=== PATIENT | female | born 1940 | race Caucasian/White ===

== ENCOUNTER 2023-07-29 17:58 | Inpatient (IN) | payer OTHER, SELFPAY ==
[2023-07-29] VITALS (31 sets, daily range): BP systolic 97–119; BP diastolic 48–74; BMI 32.6
[2023-07-29 18:19] LABS: % Basophils 0.5 % (0-2); % Eosinophils 0.3 % (0-6); % Immature Granulocytes 0.7 % (0-0.5); % Lymphocytes 5.2 % (20.5-51.1); % Monocytes 2.9 % (1.7-9.3); % Neutrophils 90.4 % (42.2-75.2); Absolute Basophils 0.1 10^3/uL (0-0.2); Absolute Immature Granulocytes 0.1 10^3/uL (0-0.05); Absolute Lymphocytes 0.6 10^3/uL (1.2-3.4); Absolute Monocytes 0.4 10^3/uL (0.1-0.6); Absolute Neutrophils 11.1 10^3/uL (1.4-6.5); Hematocrit 28.7 % (37.0-47.0); Mean Corp Hgb Conc. 31.4 g/dL (33.0-37.0); Mean Corpuscular Hgb 25.1 pg (27.0-31.0); Mean Corpuscular Volume 80.2 fL (81.0-99.0); Mean Platelet Volume 11.2 fL (7.4-10.4); Nucleated Red Blood Cells % 0.6 %; Platelet Count 363 10^3/uL (130-400); Red Blood Cell Count 3.58 10^6/uL (4.20-5.40); White Blood Cell Count 12.3 10^3/uL (4.8-10.8)
[2023-07-29 18:20] LABS: Venous Blood Gas B.E. -5.9 mmol/L (-4 to +4); Venous Blood Gas O2 Sat % 73.3 %; Venous Blood Gas pCO2 55 mmHg (35-48); Venous Blood Gas pH 7.21 (7.32-7.43); Venous Blood Gas pO2 44 mmHg (30-50)
[2023-07-29 18:35] LABS: APTT 56.8 Sec (23.4-35.0); INR 1.93; PT 21.9 Sec (11.4-14.6)
[2023-07-29 18:39] LABS: ALT (SGPT) 89 U/L (0-35); AST (SGOT) 186 U/L (14-36); Albumin 3.5 g/dl (3.5-5.0); Alkaline Phosphatase 70 U/L (38-126); Blood Urea Nitrogen 55 mg/dl (7-17); Calcium 8.6 mg/dl (8.4-10.2); Carbon Dioxide 23 mmol/L (22-30); Chloride 103 mmol/L (98-107); Glucose 158 mg/dl (70-99); Potassium 3.8 mmol/L (3.5-5.1); Sodium 132 mmol/L (135-145); Total Bilirubin 0.7 mg/dl (0.2-1.3); eGFR 22.81
[2023-07-29] MEDS: DIPRIVAN 100 IV (19:15)
[2023-07-29] MEDS: DOBUTREX 500 MG 250 IV (19:15)
[2023-07-29] MEDS: LEVOPHED 250 IV ×2 (19:15→22:40)
--- NOTE | 2023-07-29 19:41 | CON.CAR ---
Consultation
Consultation Request
Date/Time Consultation Requested: 07/29/2023; 13:35
Date/Time Consultation Performed: 07/29/2023; 19:42
Requesting Provider: Rolando Maria D.O. ([facility])
Performing Provider: Rolando Gómez D.O.
Reason for Consultation: Hypoxic respiratory failure, sinus arrest requiring CPR/ACLS.
Medical History
-
Chief Complaint: Patient intubated/sedated.
History of Present Illness:
82 y/o female with atrial fibrillation on apixaban, NIDDM, severe CAD (not revascularized due to severity/complexity of disease), HTN, HLD, aortic stenosis and HFpEF admitted to [facility] with weakness and shortness in breath. The patient also reported
syncope while sitting at home, witnessed by her grandson. She was recently admitted and discharged from [facility] with acute on chronic HFpEF and PNA, treated with a course of antibiotics but reported continued shortness in breath since that discharge.
The patient is intubated and sedated. Then entire history is taken from the chart and EMS report.
At [facility], the patient recieved a dose of furosemide in the ER, leading to hypotension and cessation of diuretics. Workup revealed acute kidney injury, new anemia (Hbg 7.1) and coagulopathy. The patient was started on norepinephrine and given a fluid
bolus. She was transfused one unit of PRBC's and treated with empiric cefepime for potential PNA. She became bradycardic and suffered a sinus arrest requiring CPR/ACLS with ROSC. Echocardiogram revealed a new inferolateral wall motion abnormality
(appeared thinned, chronic per Dr. Maria). [facility] was contact for transfer for [facility] and consideration of a PPM. [facility] On their arrival, the patient was reportedly in worsening
respiratory distress. The patient was intubated prior to transfer. Intubation led to further hypotension and increase in norepinephrine. She was sedated using propofol. A kaye catheter was placed.
Upon arrival to the [facility], the patient was found to be hemodynamically stable with variable HR. A temporary pacemaker was placed. Given her hypoxic respiratory failure, the decision was made to place a [place] catheter. The
patient was found to have severely elevated filling pressures (PCWP = 30 mmHg) and a CI of 1.88 L/min/m2, consistent with cardiogenic shock. Given the reported new wall motion on TTE and cardiogenic shock, we proceeded to left heart catheterization
and coronary angiography to re-evaluate the patient's coronary anatomy and treat if clinically indicated. LHC confirmed severely elevated LVEDP (25 mmHg). Coronary angiography showed stable, severe CAD with densely calcified 90% lesions in the
ostia of the RCA and LCx, likely with significant disease in the LMCA, but with CHELO III flow throughout and unchanged from cardiac catheterization in 02/2023. Given the inherent complexity and extreme risk without obvious change in coronary
anatomy, the decision was made to manage the patient medically. She was started on dobutamine and transferred to the CVICU.
The patient was started on a bumetamide gtt. UA/lactate/ABG were obtained.
Past Medical History
Past Medical History: CAD, CHF, COPD, HTN, Hypercholesterolemia and NIDDM
Family History
Family History: Reviewed & Not Pertinent
Allergies / Home Medications
Allergy/AdvReac Type Severity Reaction Status Date / Time
codeine Allergy Unknown Verified 02/21/23 13:54
�Medication �Instructions �Recorded �Confirmed �Type
amlodipine 5 mg tablet 5 mg PO DAILY 02/21/23 02/21/23 History
apixaban 5 mg tablet (Eliquis) 5 mg PO BID 02/21/23 02/21/23 History
aspirin 81 mg chewable tablet 81 mg PO DAILY 02/21/23 02/21/23 History
atorvastatin 20 mg tablet 20 mg PO HS 02/21/23 02/21/23 History
carvedilol 25 mg tablet 25 mg PO BID 02/21/23 02/21/23 History
furosemide 20 mg tablet 20 mg PO Q OTHER DAY 02/21/23 02/21/23 History
losartan 50 mg tablet 50 mg PO DAILY #90 tabs 02/21/23 Rx
nitroglycerin 0.4 mg sublingual 0.4 mg sublingual [id number] PRN 02/21/23 Rx
tablet chest pain #25 tabs
sertraline 100 mg tablet 100 mg PO DAILY 02/21/23 02/21/23 History
Review of Systems
-
Unable to obtain full review of systems at this time due to: Patient Intubation
History Source: Ambulance Crew and Transfer Record
Physical Exam
Lab Results
07/29/23 18:03
07/29/23 18:03
Troponin I 21.000 ng/ml H* 07/29/23 17:52
Physical Exam
General: Well Developed and Well Nourished
HEENT: Normocephalic, Anicteric and Moist Mucous Membranes
Respiratory: Other (Coarse throughout.)
Cardiac: S1/S2, Regular Rhythm and Murmur
Breast: Deferred by me
GI: Soft, Non Tender, Non Distended and Normal Bowel Sounds
Rectal: Deferred by Provider
Genito-urinary: Turbid Urine
Musculoskeletal: No Clubbing, No Cyanosis and No Edema
Skin: Warm and Dry
Neuro: Other (Intubated/Sedated.)
Hematologic/Lymphatic: No Lymphadenopathy
Impression / Plan
-
82 y/o female with NIDDM, AF on apixaban, HTN, HLD, and severe CAD admitted with acute on chronic HFpEF and CIRO, found to be newly anemic and requiring transfusion, subsequently developing worsening hypoxic respiratory failure and sinus/bradycardic
arrest and ventilator dependent respiratory failure.
#Hypoxic respiratory failure
-Multifactorial, related to acute on chronic HFpEF, COPD, PNA.
-ABG shows respiratory acidosis. Adjust RR.
-Wean ventilator to extubate.
-Treatment of HFpEF as below.
-Empiric ABX for possible PNA.
-Serial ABGs.
#HFpEF
-Acute on chronic. This may be TACO.
-Cardiogenic shock (PCWP > 24, CI < 2.2).
-Norepinephrine/dobutamine for chemical support and inotropy.
-Bumetanide gtt at 1 mg/hour.
-She is not a candidate for MCS given her PAD.
#CAD
-Chronic, severe.
-Coronary angiography unchanged from 02/2023.
-Any intervention would be a highly complex and high risk procedure. If she fails to improve, we will revisit this option. She is not a candidate for CABG and declined this in the past.
-Trend troponin.
-Echocardiogram ordered.
#CIRO
-New diagnosis. Normal BUN/Cr at the time of cath in February.
-I suspect cardiorenal syndrome.
-Monitor with diuresis.
-UA for possible infection given turbid urine.
#Sinus/Bradycardic arrest
-Confirmed by Dr. Maria.
-Could be related to pulmonary/hypoxic respiratory failure vs. underlying conduction failure.
-TPM placed.
-Diurese and consider PPM if indicated.
#PAF
-Currently in NSR with PACs.
-No role for rate control at this time.
-CHADS2-Vasc = 7 (CHF, HTN, Age x2, DM, Vascular Disease, Female Gender).
-Anticoagulation on hold due to anemia.
#Anemia
-New diagnosis.
-Per notes, H/H has been drifting over several months.
-Check FOBT.
-B12/Folate/Thiamine, Fe studies, peripheral smear, reticulocyte count/index.
#NIDDM
#HTN
#HLD
Data Reviewed
-
EKG: Tracing Personally Visualized and interpreted, Report Reviewed by me, Discussed with Physician and Discussed with Nurse
Medical Tests (Nuc Med, Echo etc): Image Personally Visualized and interpreted, Report Reviewed by me, Discussed with Physician and Discussed with Nurse
Labs: Labs Reviewed by me, Discussed with Physician and Discussed with Nurse
Old Records: Reviewed
Critical Care Time (in minutes): 90
[2023-07-29] MEDS: BUMEX 50 IV (20:00)
--- NOTE | 2023-07-29 20:32 | ITS.CL.CATH ---
[facility] - Catheterization
Cardiac Catheterization
Procedure Report:
CARDIAC CATHETERIZATION REPORT
Date of Procedure: 07/29/2023
Referring: Rolando Maria D.O.
Indication: Hypoxic respiratory failure, sinus/bradycardic arrest
PROCEDURE:
1. Temporary pacemaker placement.
2. Right heart catheterization.
3. Left heart catheterization.
4. Coronary angiography.
ACCESS:
7 [place] left common femoral vein using a modified Seldinger technique with a micropuncture kit under ultrasound guidance.
8 [place] right internal jugular vein using a modified Seldinger technique with a micropuncture kit under ultrasound guidance.
6 [place] left common femoral artery using modified Seldinger technique with a micropuncture kit under ultrasound guidance.
CATHETERS:
1. 5 [place]ic temporary pacemaker wire.
2. 7.5 [place] catheter.
3. 5 [place]ic JR4.
4. 5 [place]ic JL 4.
HEMODYNAMIC DATA
Weight (kg): 75.8
AO (s/d/x mmHg): 91/48/62
LV (s/x mmHg): 103/25
PCWP (a/v/x mmHg): 32/35/27
PA (s/d/x mmHg): 54/27/36
RV (s/x mmHg): 54/20
RA (a/v/x mmHg): 21/21/20
SVC SvO2 (%): 68.2
PA SvO2 (%): 57.2
SaO2 (%): 96.0
Hbg (g/dL): 9.1
KAREN
CO (L/min): 4.41
CI (L/min/m2): 2.50
THERMODILUTION
CO (L/min): 3.33
CI (L/min/m2): 1.88
TPG (mmHg): 9
PVR ([place] Units): 2.70
SVR (dynes*seconds*cm^-5): 1018
AVO2 Diff (Volume %): 4.80
AV gradient (x, mmHg): 8.32
AV area (cm2): 1.20
LEFT VENTRICULOGRAPHY: Not performed.
CORONARY ANGIOGRAPHY
Dominance: Right.
Left Main: Normal size/bifurcating vessel. There is 30-40% distal tapering with dense calcification throughout the entire vessel.
LAD: Large size vessel giving rise to 1 significant diagonal. The entire vessel is moderately diseased with dense calcification. There is a 50-60% lesion in the mid vessel after the origin of the diagonal.
Ramus: Congenitally absent.
Circumflex: Large size, nondominant vessel giving rise to 4 obtuse marginals. OM1 is a small, vestigial vessel. OM 2 and OM 3 are more substantial vessel supplying the lateral wall. OM 4 is a small vessel. There is a densely calcified, 90%
lesion in the ostium of the left circumflex with CHELO-3 flow.
RCA: Large size, dominant vessel. There is a densely calcified, 90%, subtotal lesion in the ostium of the RCA with CHELO-3 flow. There are tandem, densely calcified 70% and 80% lesions in the crux of the vessel.
INTERVENTIONS
1. Initiation of dobutamine at 10 mcg/kg/min.
Closure Device: None. The right internal jugular sheath, right femoral venous sheath and right common femoral arterial sheath was sutured in place.
Radiation dose (mGy): 388.21
DAP (cm2.Gy): 30.7915
Fluoroscopy time (minutes): 3.7
Sedation time (minutes): 86
CONCLUSIONS:
1. Right dominant circulation with a densely calcified 90% subtotal lesion in the ostium of the RCA, tandem, densely calcified 70% 80% lesions in the crux of the RCA, a 30-40% distal tapering of a densely calcified left main coronary artery, a 50
to 60% lesion in the mid LAD and a densely calcified, 90% lesion in the ostium of the left circumflex. CHELO-3 flow is preserved in all vessels. Coronary anatomy is unchanged from prior cardiac catheterization of 02/21/2023.
2. Severely elevated filling pressures (LVEDP = 25 mmHg, PCWP = 27 mmHg at 75.8 kg).
3. Severely depressed cardiac function (cardiac index 1.88 L/min/m� on norepinephrine 10 mcg/kg/min) consistent with cardiogenic shock.
4. Bradycardic/sinus arrest, now status post successful placement of a temporary pacemaker.
RECOMMENDATIONS:
1. Expectant management after cardiac catheterization via left femoral and left internal jugular approach.
2. Given the high complexity and inherent high risk nature of the procedure with unchanged coronary anatomy, the decision was made to manage the patient medically rather than pursue PCI at this time.
3. Dobutamine started in the [facility] to augment systolic function.
4. Bumetanide drip 1 mg/h has been ordered.
5. We will start empiric antibiotics to cover potential infection.
6. Patient's outlook is relatively poor. We will discuss with appropriate family.
Copy to: Rolando Maria D.O., Donato Gallegos M.D., LEONARD Beck
Rolando Gómez DO, FACC, FACP
--- NOTE | 2023-07-29 21:25 | HPS.HSE ---
Family Physician
-
Family Physician: NO INTERVIEW UNKNOWN
Chief Complaint
-
Hypoxic respiratory failure
History of Present Illness
This is an 82 y.o female with h/o NIDDM, severe CAD with prior cath but no revascularization, HTN, HLD, , CHF w/ preserved EF, atrial fibrillation presenting with weaknessa nd shortness of breath as well as a syncope episode at home. She is
intubated and sedated. Unable to obtain history. History obtained from chart records.
She was recently admitted at [facility] with CHF exacerbation and pneumonia and treated with a course of antibiotics but has remained short of breath since discharge. She was seen at [facility] and started on a dose of furosemide leading to
hypotension. Had CIRO and anemia (Hgb 7.1) as well as elevated INR. She was started on pressors, and bolused with IV fluids. Transfused with 1 unit pRBCs and started on empiric cefepime for possible pneumonia. She had a PEA arrest requiring
CPR/ACLS with ROSC. Echo revealed new inferolateral wall motion abnormality. Patient was intubated for worsening respiratory status and then transferred to .
She was immediately taken to the laborer car barn where a temporary ppm was placed. A RHC was performed with a PCWP of 30 and CI of 1.88. She also had a LHC showing known atherosclerotic disease (calcified 90% lesions in ostia of RCA and LCx, signicant
LMCA disease but with CHELO III flow throughout and unchanged from prior cath) and LVEDP of 25. Decision made to treat medically.
Medical History
Past Medical History
Past Medical History: Reports CAD, HTN, Hypercholesterolemia, NIDDM and Renal Failure
Additional Past Medical History:
Aortic stenosis
Past Surgical History: Reports None
Social History
Unable to obtain full social history at this time due to: Acuity
Family History
Family History: Not pertinent
Allergies / Home Medications
Allergies reflects when Allergies were last updated in [facility].
Home Medications with original date entered in [facility]
Allergy/Medication List:
Allergies
Allergy/AdvReac Type Severity Reaction Status Date / Time
codeine Allergy Unknown Verified 02/21/23 13:54
Home Medications
amlodipine 5 mg tablet 5 mg PO DAILY 02/21/23
apixaban 5 mg tablet (Eliquis) 5 mg PO BID 02/21/23
aspirin 81 mg chewable tablet 81 mg PO DAILY 02/21/23
atorvastatin 20 mg tablet 20 mg PO HS 02/21/23
carvedilol 25 mg tablet 25 mg PO BID 02/21/23
furosemide 20 mg tablet 20 mg PO Q OTHER DAY 02/21/23
losartan 50 mg tablet 50 mg PO DAILY #90 tabs 02/21/23
nitroglycerin 0.4 mg sublingual tablet 0.4 mg sublingual [id number] PRN chest pain #25 tabs 02/21/23
sertraline 100 mg tablet 100 mg PO DAILY 02/21/23
Review of Systems
-
Unable to obtain full review of systems at this time due to: Acuity
Physical Exam
Vital Signs
Vital Signs
Pulse Resp BP Pulse Ox
91 18 97/57 98
07/29/23 21:05 07/29/23 21:05 07/29/23 21:05 07/29/23 19:15
Physical Exam
General: Intubated
HEENT: NormoCephalic, Anicteric and Atraumatic
Respiratory: Crackles
Cardiac: S1/S2 and Regular Rhythm
Breast: Deferred by me
GI: Soft, Non Tender and Non Distended
Rectal: Deferred by Provider
Genito-urinary: Turbid Urine and Miller
Musculoskeletal: No Clubbing, No Cyanosis and No Edema
Neuro: Sedated and Other (Intubated)
Hematologic/Lymphatic: No Lymphadenopathy
Laboratory Results
-
07/29/23 18:03
07/29/23 18:03
Laboratory Results
PT 21.9 Sec (11.4-14.6) H 07/29/23 18:02
INR 1.93 07/29/23 18:02
APTT 56.8 Sec (23.4-35.0) H 07/29/23 18:02
Lactic Acid 1.0 mmol/L (0.7-2.0) 07/29/23 18:03
Total Bilirubin 0.7 mg/dl (0.2-1.3) 07/29/23 18:03
AST 186 U/L (14-36) H 07/29/23 18:03
ALT 89 U/L (0-35) H 07/29/23 18:03
Alkaline Phosphatase 70 U/L (38-126) 07/29/23 18:03
Troponin I 21.000 ng/ml H* 07/29/23 17:52
Data Reviewed
-
Diagnostic Radiology: Image Personally Visualized and interpreted and Report Reviewed by me
Medical Tests (Nuc Med, Echo, EKG etc): Image Personally Visualized and interpreted and Report Reviewed by me
Lab Data: Labs Reviewed by me
Old Records: Reviewed
Impression/Plan
-
IMPRESSION:
82 y.o female with h/o severe CAD w/o stenting, NIDDM, COPD, HTN, CHF w/ preserved EF who presents with cardiogenic shock, sinus arrest s/p ROSC and intubated for further respiratory demise in setting of CIRO with diuretics. Sent to cath s/p
LHC/RHC, placement of temporary ppm for variable sinus pauses, swan remains. Art line/cordis
PLAN:
1. Cardiogenic shock - LVEDP 25, PCWP 30, multi-vessel of coronaries with 90% lesion not intervened due to unchanged status compared to prior. Intubated and sedated. Medical managament.
- levophed titrated for MAP > 60
- dobutamine titrated for CI > 2
- bumetanide gtt 4, output ~ 100ml/hr , titrate for i/o net negative
- holding norvasc carvedilol and losartan
- cardiology aware and following
2. Respiratory failure - Hypercarbic and hypoxic respiratory failure 2/2 heart failure
- Vent management per ICU. AC 16 400 100 5. Weaning FIO2. Adjust rate based on pH and pCO2
- empiric antibiotics for presumed pna (cefepime)
- nebs RTC
- sedation on propofol
- sedation & extubation trials when fio2 weaned down and hemodynamically stable
3. Elevated Trop - Cardiogenic shock, known ischemic cardiomyopathy, no new lesions.
- no anticoagulation at this time, trend troponin
- continue statin aspirin
4. CIRO - 2/2 cardiogenic shock
- pressors and inotropes as above
- holding losartan
- electrolyes acceptable and non-oliguric,
-
5. Anemia - Normocytic anemia. No obvious bleeding. No priors for comparison. S/P transfusion at outside hospital
- type and screen in am, transfuse for goal hgb > 7
- anemia w/u for ROCHELLE, B12, folate and hemolysis on going
6. AFIB - currently rate controlled and sinus
- holding carvedilol
- holding eliquis pending InR < 1.5, consider
7. DM II - per chart NIDDM but no meds on chart c/w with this
- sliding scale insulin q 6 hours for now
- check a1c in am
DVT PPX - SCDs
Full Code
--- NOTE | 2023-07-29 21:30 | PTCARENOTE ---
Patient received from agricultural labor camp manager via bed. Patient intubated/ventilator. Briefly opens eyes to verbal and tactile stimulation. Pupils size 3 with sluggish reaction. Pupils equal in size and reaction. Movement of extremities noted. Patient
continues on Propofol gtt for sedation. No s/s of respiratory distress. No s/s of pain or discomfort. 7.0 ETT 22cm Right lip. Ventilator settings: AC 14 TV 450 PEEP 5 FiO2 100%. SaO2 96%. Rate increased to 16. SaO2 97%. Minimal clear to
whitish secretions. Mouth care provided. Portable CXR completed. Sinus Rhythm with occasional PAC's. Right femoral transvenous pacemaker - VVI Rate 60, Output 20, Sensitivity 0.8. Patient continues on Levophed gtt and Dobutamine gtt. Right
femoral T.L.C. intact. Bumex gtt added. Normoactive bowel sounds. No BM. No vomiting. NPO. Miller catheter - Intact and patent - Outputs as documented. Right [place] and [place] Soila catheter setup. Left femoral arterial line intact.
A-Line, PAP, CVP to Pressure bag/Saline flush. PAP 50/30 (39). CVP 18. C.O. 4.89 C.I. 2.83 SVR 818. Positive, palpable pulses. EKG completed. Dr. Gómez at bedside. Adeel at bedside. Assessment as documented.
[2023-07-29 22:13] LABS: Reticulocyte Count 3.6 % (0.4-2.8)
[2023-07-29 22:26] LABS: Absolute Neutrophils -Man Diff 11.6 10^3/uL (1.4-6.5); Anisocytosis 2+; Atypical Lymphocytes 2 %; Band Neutrophils 7 % (0-3); Hypochromasia 1+; Lymphocytes 3 % (20-51); Microcytosis 2+; Platelets Checked Yes; Segmented Neutrophils 88 % (42-75)
[2023-07-29 22:27] LABS: Acanthocytes 2+; Poikilocytosis 2+; Total Cells Counted 100
[2023-07-29 22:32] LABS: Normal RBC Morphology No
[2023-07-29] MEDS: STERILE WATER FOR INJECTION 10 ML IV (22:48)
[2023-07-29] MEDS: MAXIPIME 1000 MG IV (22:48)
[2023-07-29 23:15] LABS: Glucose - Point of Care 223 mg/dl (70-99)
[2023-07-29 23:16] LABS: B.E. -5.4 mmol/L; HCO3 20.7 mmol/L (21-28); Ionized Calcium 1.21 mMOL/L (1.15-1.33); O2 Saturation % 94.4 % (94-98); PCO2 42 mmHg (32-35); PO2 67 mmHg (83-108); Potassium 3.4 mMOL/L (3.5-5.1)
[2023-07-29 23:17] LABS: Urine Albumin Trace (Neg - Trace); Urine Bilirubin Negative (Negative); Urine Character Slightly Cloudy (Clear); Urine Color Yellow; Urine Glucose Negative (Negative); Urine Ketone Negative (Negative); Urine Leukocyte Trace (Negative); Urine Nitrite Negative (Negative); Urine Occult Blood 4+ (Negative); Urine Specific Gravity 1.015 (<1.030); Urine Urobilinogen Negative (Neg - 1+)
[2023-07-29 23:32] LABS: Iron 26 ug/dl (37-170); Lactic Acid 1.2 mmol/L (0.7-2.0); Triglycerides 124 mg/dl (10-149)
[2023-07-29 23:41] LABS: Percent Saturation 8 % (20-50); Total Iron Binding Capacity 302 ug/dl (265-497)
[2023-07-29] MEDS: SODIUM BICARBONATE 50 MEQ IV ×2 (23:49→23:54)
[2023-07-30] VITALS (31 sets, daily range): BP systolic 88–122; BP diastolic 47–68; BMI 34.2
[2023-07-30] MEDS: KCL 100 IV
[2023-07-30] MEDS: NOVOLOG FLEXPEN-LOW RESISTANCE 2 UNITS SC (00:15)
--- NOTE | 2023-07-30 00:30 | PTCARENOTE ---
Lab work, ABG and urine collected and sent. Ventilator changes - FiO2 initially 100% then decreased to 60% then increased to 80%. TV increased to 500. 2 AMP Sodium Bicarb administered per PA order. KCL 40 mEq/100ml IV 25 ml/hr ordered and
started. C.O. 4.42 C.I. 2.56. Then, C.O. 4.89 C.I. 2.83. Dobutamine titration to maintain C.I. .2.0. No further changes from previous assessment.
[2023-07-30 00:49] LABS: Folate > 20.0 ng/ml (2.76-20); Vitamin B12 949 pg/ml (239-931)
[2023-07-30 01:19] LABS: Urine Hyaline Cast >15 /LPF (0-2); Urine Mucus Few
[2023-07-30 01:23] LABS: Urine Amorphous Seen; Urine Bacteria Moderate (Negative); Urine Red Blood Cell >100 /HPF (0-2); Urine Yeast Moderate (Negative)
[2023-07-30] MEDS: DIPRIVAN 100 IV ×4 (02:23→23:32)
--- NOTE | 2023-07-30 04:30 | PTCARENOTE ---
C.O. 4.76 C.I. 2.75. Then, C.O. 4.42 C.I. 2.56. Patient given CHG bath and linens changed. Mouth care provided. AM labs sent. Assessment/Interventions as documented.
[2023-07-30] MEDS: BUMEX 50 IV ×2 (04:39→15:03)
[2023-07-30 04:41] LABS: B.E. -1.2 mmol/L; HCO3 23.5 mmol/L (21-28); Ionized Calcium 1.18 mMOL/L (1.15-1.33); O2 Saturation % 98.5 % (94-98); PCO2 38 mmHg (32-35); PO2 117 mmHg (83-108)
[2023-07-30 04:49] LABS: Hematocrit 24.4 % (37.0-47.0); Hemoglobin 7.9 g/dL (12.0-16.0); Mean Corp Hgb Conc. 32.4 g/dL (33.0-37.0); Mean Corpuscular Hgb 25.2 pg (27.0-31.0); Mean Corpuscular Volume 77.7 fL (81.0-99.0); Mean Platelet Volume 10.9 fL (7.4-10.4); Platelet Count 252 10^3/uL (130-400); Red Blood Cell Count 3.14 10^6/uL (4.20-5.40); Red Cell Dist. Width 17.7 % (11.5-14.5); White Blood Cell Count 15.8 10^3/uL (4.8-10.8)
[2023-07-30 05:00] LABS: INR 1.83
[2023-07-30 05:13] LABS: Blood Urea Nitrogen 54 mg/dl (7-17); Calcium 8.2 mg/dl (8.4-10.2); Carbon Dioxide 25 mmol/L (22-30); Chloride 104 mmol/L (98-107); Estimated Creatinine Clearance 22 ml/min; Glucose 183 mg/dl (70-99); Potassium 3.7 mmol/L (3.5-5.1); Sodium 133 mmol/L (135-145); eGFR 29.39
[2023-07-30] MEDS: CALCIUM CHLORIDE 10% SYRINGE 60 MG IV (05:50)
[2023-07-30] MEDS: LEVOPHED 250 IV (06:00)
[2023-07-30] MEDS: DOBUTREX 500 MG 250 IV (06:00)
--- NOTE | 2023-07-30 06:00 | PTCARENOTE ---
Patient opens eyes to verbal/tactile commands. Patient will follow simple verbal commands. Attempts to mouth words. Encouraged to rest. Levophed gtt at 4 mcq/min (15 ml/hr). Dobutamine gtt at 3 mcq/kg/min (6.8 ml/hr). C.O. 5.14 C.I. 2.97.
Calcium chloride 1,000mg/50ml. Assessment/Interventions as documented.
[2023-07-30 06:19] LABS: Glucose - Point of Care 194 mg/dl (70-99)
[2023-07-30] MEDS: NOVOLOG FLEXPEN-LOW RESISTANCE 1 UNITS SC ×2 (06:20→14:27)
--- NOTE | 2023-07-30 08:25 | PTCARENOTE ---
Dr. Gómez made aware of a fibb via tiger text with rates to the 110's to 120's. Patient does have a history of a fibb/PAF. New orders to place OGT for potassium replenishment/meds.
--- NOTE | 2023-07-30 08:26 | W.PN.CD ---
Today's Communication / Plan
-
Bladder US.
Continue to down titrate dobutamine.
Continue diuresis.
CXR.
Consider adding anti-fungal to ABX regimen.
Echocardiogram ordered and pending.
OG tube ordered.
Start PO FeSO4.
Replace Potassium.
Check Mg/PO4.
Impression / Plan
-
Impression/Plan: 82 y/o female with NIDDM, AF on apixaban, HTN, HLD, and severe CAD admitted with acute on chronic HFpEF and CIRO, found to be newly anemic and requiring transfusion, subsequently developing worsening hypoxic respiratory failure and
sinus/bradycardic arrest and ventilator dependent respiratory failure.
#Hypoxic respiratory failure
-Multifactorial, related to acute on chronic HFpEF, COPD, PNA.
-ABG has normalized. pH 7.4, pCO2 40, pO2 117.
-Repeat CXR this morning.
-Wean ventilator to extubate.
-Treatment of HFpEF as below.
-Remains on cefepime for possible PNA.
-Serial ABGs.
#HFpEF
-Acute on chronic. This may be TACO.
-Cardiogenic shock at cath (PCWP > 24, CI < 2.2).
-Norepinephrine/dobutamine for chemical support and inotropy. CI now consistently > 2.4.
-Bumetanide gtt at 1 mg/hour.
-She is not a candidate for MCS given her PAD.
-She is nearly 2L negative by I/O. CI/Renal function are improving.
-Dobutamine and norepinephrine are both down to 2 mcg/kg/min.
-Down titrate dobutamine as CI will allow.
-I suspect she has never been fully diuresed during previous hospitalizations.
-Maintain K > 4, Mg > 2, Ca > 8 and PO4 > 2.5.
#CAD
-Chronic, severe.
-Coronary angiography unchanged from 02/2023.
-Any intervention would be a highly complex and high risk procedure. If she fails to improve, we will revisit this option. She is not a candidate for CABG and declined this in the past.
-Troponin peaked on arrival (21) and falling. D/C trend. She likely peaked at [facility] (3000 on their scale).
-Echocardiogram ordered/pending.
#CIRO
-New diagnosis. Normal BUN/Cr at the time of cath in February.
-I suspect cardiorenal syndrome.
-Improving with diuresis.
-UA shows large blood/RBC's, moderate bacteria/yeast.
-UCx ordered.
-Renal/bladder US to assess for source of blood loss/potential nidus for infection. We will check bladder first as she is intubated and sedated.
-Presence of yeast - contaminate or are we not treating a fungal UTI? Repeat UA in light of improved urine output.
#Sinus/Bradycardic arrest/PAF
-Confirmed by Dr. Maria.
-Could be related to pulmonary/hypoxic respiratory failure vs. underlying conduction failure.
-TPM placed.
-Diurese and consider PPM if indicated. Could this have all been from respiratory failure rather than a true conduction issue?
#PAF
-Lapsed into AF with moderate RVR (110-120 this morning).
-No role for rate control at this time.
-CHADS2-Vasc = 7 (CHF, HTN, Age x2, DM, Vascular Disease, Female Gender).
-Anticoagulation on hold due to anemia.
#Anemia
-New diagnosis.
-Per notes, H/H has been drifting over several months.
-FOBT pending.
-B12/Folate normal.
-Peripheral smear does not show schistocytes. Reticulocyte count is high - this effectively r/o hemolytic anemia or marrow failure.
-Fe/Fe% are low with a normal TIBC and Ferritin. There is clearly a component of Fe deficiency and AOCD. Ferritin is > 100, but should be much higher as an acute phase reactant.
-Thiamine pending.
-PO FeSO4.
-Renal/bladder US given hematuria on UA to assess as source of blood loss.
-Transfuse for Hbg < 7/Hct < 21.
#NIDDM
#HTN
#HLD
Critical Care Time = 45 minutes.
Subjective/Interval History:
CI has been much improved on dobutamine, consistently > 2.4.
Weight is up 5.8 kg compared to February, difficult to tell differential from scales vs. true weight gain.
Opening eyes to stimuli.
BP stable on norepinephrine and dobutamine.
SAO2 91% on 40% FiO2/ventilated.
1975 mL out in kaye catheter on bumetanide gtt.
Hbg down to 7.9 (from 9.0). WBC up to 15 (from 12).
Blood gas has normalized (7.40/38/117).
Fe and Fe% are low. TIBC normal. Ferritin 108. B12/Folate are high. B1 pending.
Troponin trending down. Lactate normal.
UA shows 4+ blood/RBC's, moderate bacteria/yeast.
She went into AF this morning. Rates 110-120.
DATA:
CXR, 07/29/2023:
IMPRESSION:
1. SEVERE ACUTE ALVEOLAR and INTERSTITIAL CARDIOGENIC PULMONARY EDEMA.
2. Small right pleural effusion.
3. Mild cardiomegaly.
4. Cardiac pacemaker wire projecting over the right ventricle.
5. Pulmonary arterial catheter in place with the tip in the right lower lobe pulmonary artery.
6. Endotracheal tube in place.
Cardiac Catheterization/TPM placement, 07/29/2023:
CONCLUSIONS:
1. Right dominant circulation with a densely calcified 90% subtotal lesion in the ostium of the RCA, tandem, densely calcified 70% 80% lesions in the crux of the RCA, a 30-40% distal tapering of a densely calcified left main coronary artery, a 50
to 60% lesion in the mid LAD and a densely calcified, 90% lesion in the ostium of the left circumflex. CHELO-3 flow is preserved in all vessels. Coronary anatomy is unchanged from prior cardiac catheterization of 02/21/2023.
2. Severely elevated filling pressures (LVEDP = 25 mmHg, PCWP = 27 mmHg at 75.8 kg).
3. Severely depressed cardiac function (cardiac index 1.88 L/min/m� on norepinephrine 10 mcg/kg/min) consistent with cardiogenic shock.
4. Bradycardic/sinus arrest, now status post successful placement of a temporary pacemaker.
Physical Exam
Vital Signs/Labs
Vital Signs
Temp Pulse Resp BP Pulse Ox
37.4 C 87 18 115/61 91
07/30/23 08:09 07/30/23 08:09 07/30/23 08:09 07/30/23 08:09 07/30/23 08:09
07/28/23 07/29/23 07/30/23
11:59 11:59 11:59
Actual Weight 79.5 kg
07/30/23 04:34
07/30/23 04:34
PT 21.0 Sec (11.4-14.6) H 07/30/23 04:34
INR 1.83 07/30/23 04:34
APTT 56.8 Sec (23.4-35.0) H 07/29/23 18:02
Triglycerides 124 mg/dl (10-149) 07/29/23 23:04
LAB Results
07/29/23 07/29/23 07/30/23
17:52 23:04 04:34
Troponin I 21.000 H* 15.900 H* 12.700 H*
Physical Exam
Constitutional: No acute distress and Comfortable
EENT: Anicteric and Moist mucous membranes
Cardiovascular: Rhythm/rate is irregular, S1S2 is normal and Murmur/rub/gallop absent
Respiratory: Other (Coarse throughout.)
GI: Soft, Distention absent, Flat, Non tender and Normal bowel sounds
Neuro/Psych: Other (Intubated, sedated.)
Other: Cath Site (Right IJ, left femoral access sites are C/D/I.)
Data Reviewed
-
Date of Service: July 30, 2023
Medical Decision Making: Reviewed Test Results, Tests Ordered, Test Interpretation and Review of Case with other Provider
EKG: Tracing Personally Visualized and interpreted and Report Reviewed by me
Echo: Ordered by me
X-Ray/CT/US/MRI/NUC/PET: Image Personally Visualized and interpreted, Report Reviewed by me and Discussed with Nurse
Medical Tests (PFT, Pathology etc): Image Personally Visualized and interpreted, Report Reviewed by me, Discussed with Nurse and Discussed with Family
Labs: Labs Reviewed by me and Labs Ordered by me
Old Records: Reviewed
[2023-07-30 08:37] LABS: B.E. -0.3 mmol/L; HCO3 23.9 mmol/L (21-28); Ionized Calcium 1.26 mMOL/L (1.15-1.33); O2 Saturation % 95.5 % (94-98); PCO2 36 mmHg (32-35); PO2 68 mmHg (83-108); Potassium 2.9 mMOL/L (3.5-5.1); pH 7.43 (7.35-7.45)
[2023-07-30] MEDS: VERSED 1 MG IV (09:10)
--- NOTE | 2023-07-30 09:30 | PTCARENOTE ---
OGT placed and placement verified via gastric bubble and cxr ordered portable to verify proper placement. Titrating down dobutrex as per order. Dr. Gómez: aware of anemia and low K. Will replete via OGT
[2023-07-30 09:41] LABS: Magnesium 2.2 mg/dl (1.6-2.3)
[2023-07-30] MEDS: FERROUS SULFATE ORAL LIQUID 300 MG TUBE ×2 (09:51→20:32)
[2023-07-30] MEDS: STERILE WATER FOR INJECTION 10 ML IV ×2 (09:52→22:47)
[2023-07-30] MEDS: MAXIPIME 1000 MG IV ×2 (09:52→22:47)
[2023-07-30] MEDS: KCL ELIXIR 40 MEQ TUBE ×2 (10:22→18:04)
[2023-07-30 10:24] LABS: Glycohemoglobin (HgbA1c) 6.3 % (4.0-5.6)
--- NOTE | 2023-07-30 11:00 | CON.INTV ---
Consultation
Consultation Request
Date/Time Consultation Requested: 07/30/2023637
Date/Time Consultation Performed: 07/30/2023757
Requesting Provider: Dr. Shafer
Performing Provider: Dr. Santiago
Reason for Consultation: Respiratory failure now on ventilator
Medical History
-
Chief Complaint: SOB/Weakness and passed out
History of Present Illness:
82-year-old female with a past medical history of CAD, DM type II, atrial fibrillation on Eliquis, aortic stenosis and HFpEF who was admitted to outside hospital due to weakness and shortness of breath. Patient also syncopized while at home which
was witnessed by her grandson. Patient was reportedly recently admitted and discharged from [facility] with acute on chronic HFpEF with pneumonia, treated with antibiotics but had been continued to experience shortness of breath since discharge. The
patient went to outside hospital and given Lasix in the ER which caused hypotension. She developed CIRO with anemia and coagulopathy and required vasopressors with Levophed. 1 unit PRBCs was given as well as antibiotics for possible pneumonia.
Patient then developed bradycardia and cardiac arrest requiring CPR --> ROSC obtained. Echo showed inferolateral wall motion abnormalities and transfer to [facility] was arranged for consideration of PPM. When the transfer medical
personnel arrived to outside hospital, patient appeared to be in worsening respiratory distress and was intubated prior to transfer. Once patient arrived here she was brought immediately to the [facility]. There was a densely calcified 90% lesion in
the ostium of the left circumflex as well as a 90% subtotal lesion in the ostium of the RCA. Also densely calcified 70-80% lesions in the crux of the RCA. Apparently the coronary anatomy is unchanged from prior cardiac catheterization from
February 2023. There was however severely elevated filling pressures with LVEDP 25 mmHg and PCWP of 27 mmHg. Also cardiac index was low at 1.88 while on Levophed consistent with cardiogenic shock. Medical management was decided given the
unchanged coronary anatomy compared to 02/2023, and dobutamine was started in the [facility] as well as Bumex drip. Temporary pacemaker also placed. Labs showed leukocytosis to 12.3, anemia to 9, initially was hypercapnic with pH of 7.21, pCO2 55,
hyponatremic to 132, CIRO with creatinine 2.1, elevated troponin of 21 with trace leukocyte esterase on urinalysis with moderate urine bacteria. Initial glucose via POCT was 223. Urine culture and respiratory culture were collected. CXR showed
severe pulmonary edema with a retrocardiac opacity. Unable to rule out concomitant pneumonia. Antibiotics were continued as well as dobutamine, Levophed, Bumex and patient was transferred to the CVICU for further care. Critical care service now
consulted for additional management/recommendations.
When I saw the patient she was intubated on 16/500/50%/5, breathing at 16 breaths/min, with PIP: 31 cmH2O, and VTe of 540 mL. BP via left femoral A-line was 107/55, heart rate 108, PAP 40/24 and SpO2 98%. CO/CI: 4.15/2.4. She is on Levophed at
2mcg/min, Bumex at 1mg/hr and sedated with propofol at 30 mcg/kg/min.
PMHx: CAD, CHF, COPD, HTN, A-fib on Eliquis, hypercholesterolemia and NIDDM
PSHx: Unknown
Past Medical History
Past Medical History: Other (Above as per HPI)
Past Surgical History: Other (Above as per HPI)
Social History
Tobacco: Other (unable to obtain)
Alcohol: Other (unable to obtain)
Family History
Family History: Unable to Obtain
Allergies / Home Medications
Allergies
Allergy/AdvReac Type Severity Reaction Status Date / Time
codeine Allergy Unknown Verified 02/21/23 13:54
Home Medications
�Medication �Instructions �Recorded �Confirmed �Last Taken �Type
amlodipine 5 mg tablet 5 mg PO DAILY 02/21/23 02/21/23 02/21/23 08:00 History
apixaban 5 mg tablet (Eliquis) 5 mg PO BID 02/21/23 02/21/23 02/18/23 17:00 History
aspirin 81 mg chewable tablet 81 mg PO DAILY 02/21/23 02/21/23 02/21/23 08:00 History
atorvastatin 20 mg tablet 20 mg PO HS 02/21/23 02/21/23 02/20/23 21:00 History
carvedilol 25 mg tablet 25 mg PO BID 02/21/23 02/21/23 02/21/23 08:00 History
furosemide 20 mg tablet 20 mg PO Q OTHER DAY 02/21/23 02/21/23 02/19/23 History
losartan 50 mg tablet 50 mg PO DAILY #90 tabs 02/21/23 Unknown Rx
nitroglycerin 0.4 mg sublingual 0.4 mg sublingual [id number] PRN 02/21/23 Unknown Rx
tablet chest pain #25 tabs
sertraline 100 mg tablet 100 mg PO DAILY 02/21/23 02/21/23 02/21/23 08:00 History
Review of Systems
-
Unable to Obtain full review of systems at this time due to: Patient Intubation
Vitals / Labs / Diagnostic Testing
Vital Signs
Temp Pulse Resp BP Pulse Ox
100.5 F H 98 16 99/62 98
07/30/23 15:15 07/30/23 15:15 07/30/23 15:15 07/30/23 15:00 07/30/23 15:15
Lab Data
07/30/23 04:34
07/30/23 13:51
Laboratory Results
07/29/23 07/29/23 07/30/23
18:02 23:03 04:31
PT 21.9 H
INR 1.93
APTT 56.8 H
pH 7.30 L 7.40
pCO2 42 H 38 H
pO2 67 L 117 H
HCO3 20.7 L 23.5
O2 Delivery Level
07/30/23 07/30/23 07/30/23
04:34 08:23 13:51
PT 21.0 H
INR 1.83
APTT
pH 7.43 7.47 H
pCO2 36 H 35
pO2 68 L 116 H
HCO3 23.9 25.5
O2 Delivery Level
Microbiology
07/30/23 11:14 Endotracheal Gram Stain - Preliminary
Diagnostic Testing:
Physical Exam
-
HEENT: Normocephalic and Anicteric
Cardiovascular: Irregular Rhythm, Peripheral Edema (+1 lower extremity pitting edema) and Other (Tachycardic)
Respiratory: Wheeze (Negative), Non-Labored Respirations and Other (ETT in place; mechanical breath sounds heard bilaterally)
GI: Soft, Non Tender and Other (Abdominal obesity)
Neurology: Tremors (Negative) and Other (Sedated)
Skin: Warm and Dry
General: Comfortable and Chills (Negative)
Assessment
-
Assessment: 82-year-old female with a past medical history of CAD, DM type II, atrial fibrillation on Eliquis, aortic stenosis and HFpEF who was admitted to outside hospital due to weakness and shortness of breath. Patient also syncopized while at
home which was witnessed by her grandson. Patient was reportedly recently admitted and discharged from [facility] with acute on chronic HFpEF with pneumonia, treated with antibiotics but had been continued to experience shortness of breath since
discharge. The patient went to outside hospital and given Lasix in the ER which caused hypotension. She developed CIRO with anemia and coagulopathy and required vasopressors with Levophed. 1 unit PRBCs was given as well as antibiotics for possible
pneumonia. Patient then developed bradycardia and cardiac arrest requiring CPR --> ROSC obtained. Echo showed inferolateral wall motion abnormalities and transfer to [facility] was arranged for consideration of PPM. When the transfer
medical personnel arrived to outside hospital, patient appeared to be in worsening respiratory distress and was intubated prior to transfer. Once patient arrived here she was brought immediately to the [facility]. There was a densely calcified 90%
lesion in the ostium of the left circumflex as well as a 90% subtotal lesion in the ostium of the RCA. Also densely calcified 70-80% lesions in the crux of the RCA. Apparently the coronary anatomy is unchanged from prior cardiac catheterization
from February 2023. There was however severely elevated filling pressures with LVEDP 25 mmHg and PCWP of 27 mmHg. Also cardiac index was low at 1.88 while on Levophed consistent with cardiogenic shock. Medical management was decided given the
unchanged coronary anatomy compared to 02/2023, and dobutamine was started in the [facility] as well as Bumex drip. Temporary pacemaker also placed. Labs showed leukocytosis to 12.3, anemia to 9, initially was hypercapnic with pH of 7.21, pCO2 55,
hyponatremic to 132, CIRO with creatinine 2.1, elevated troponin of 21 with trace leukocyte esterase on urinalysis with moderate urine bacteria. Initial glucose via POCT was 223. Urine culture and respiratory culture were collected. CXR showed
severe pulmonary edema with a retrocardiac opacity. Unable to rule out concomitant pneumonia. Antibiotics were continued as well as dobutamine, Levophed, Bumex and patient was transferred to the CVICU for further care. Critical care service now
consulted for additional management/recommendations.
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
Impression:
#In-Hospital Cardiac Arrest with bradycardia just prior to arrest now s/p TVP --> suspect she arrested due to severe hypoxia from both acute pulmonary edema (?TACO vs acute HFpEF) + /- pneumonia
#Acute respiratory failure with hypoxia and hypercapnia on mechanical ventilation
#Pneumonia - she certainly aspirated during her cardiac arrest; it is unclear if she had a PNA prior to her recent hospitalization at [facility]
#Shock - cardiogenic and suspected septic as well
#Abnormal UA with suspected UTI
#Leukocytosis with left shift suspicious for sepsis given bilateral opacities on CXR concerning for suspected pneumonia
#Acute kidney injury
#Anemia
#A-fib on Eliquis
#DM type II
Plan:
- Continue mechanical ventilation with daily SAT/SBT if clinically appropriate
- Titrate FiO2 and PEEP to maintain SpO2 >90-94%
- Avoid fever in this postarrest period
- Check blood Cx, follow up sputum Cx, urine Cx, and check urine antigens for legionella + Strep PNA
- Follow up echo
- Continue bumex gtt and maintain net negative fluid balance as tolerated
- Continue broad spectrum Abx
- Continue vasopressors and wean as tolerated to maintain MAP>65
- Avoid resuming dobutamine given sepsis
- Heart rate control with goal <110bpm
- Replete electrolytes with K>4, Mg>2
- transfuse as needed to keep Hb>7, plt>20k
- Maintain euglycemia with goal BG 140-180
- Trend sCr and UOP
- Need to confirm meds; I do not see a reason why we cannot resume PO meds, but hold anti-HTN meds given her shock-state
- If patient not extubated by tomorrow and vasopressor requirements remain low, then start tube feeds
- prn nebulized bronchodilators
- stress ulcer ppx: Start PPI
- DVT ppx - start HSQ
Critical care statement: A total of 40 minutes of critical care time was provided for this patient today. This includes management of unstable vital signs, evaluation of the patient at bedside, reviewing the patient's pertinent medical records
including radiographs, microbiology, laboratory evaluations, and discussion with primary team, consultants, pharmacy, nutrition, physical therapy, case management, charge nurse, critical care nursing, and respiratory therapy.
Data:
CXR 07-30-2023:
1. SEVERE ACUTE BILATERAL ALVEOLAR CARDIOGENIC PULMONARY EDEMA which appears unchanged.
2. Mild cardiomegaly.
3. Endotracheal tube, nasogastric tube, pulmonary arterial catheter, and right ventricular cardiac pacing wire in place.
--- NOTE | 2023-07-30 12:00 | PTCARENOTE ---
Remains in controlled atrial fibb. No acute changes. Niece here at bedside and updated. Matthew Gillis (contact center director)here and updated: Dr. Gómez notified that family specifically matthew Gillis here: will contact via phone: matthew Gillis spoke
with Dr. Gómez via phone and updated about the still critical condition of his grandmother, even though she has made some improvement with titration down dobutamine and levophed. Dr. Marion also tiger texted to update on patient condion on
ventilator.
[2023-07-30 12:03] LABS: Urine Albumin Negative (Neg - Trace); Urine Bilirubin Negative (Negative); Urine Character Clear (Clear); Urine Color Yellow; Urine Glucose Negative (Negative); Urine Ketone Negative (Negative); Urine Leukocyte Negative (Negative); Urine Nitrite Negative (Negative); Urine Occult Blood 3+ (Negative); Urine Urobilinogen Negative (Neg - 1+)
[2023-07-30 12:20] LABS: Urine Bacteria Few (Negative); Urine White Cell 0-2 /HPF (0-5); Urine Yeast Moderate (Negative)
[2023-07-30 14:09] LABS: B.E. 1.8 mmol/L; HCO3 25.5 mmol/L (21-28); O2 Saturation % 98.9 % (94-98); PCO2 35 mmHg (32-35); PO2 116 mmHg (83-108); pH 7.47 (7.35-7.45)
[2023-07-30 14:22] LABS: Lactic Acid 0.9 mmol/L (0.7-2.0)
[2023-07-30 14:23] LABS: Blood Urea Nitrogen 51 mg/dl (7-17); Carbon Dioxide 25 mmol/L (22-30); Chloride 103 mmol/L (98-107); Estimated Creatinine Clearance 26 ml/min; Glucose 140 mg/dl (70-99); Potassium 3.3 mmol/L (3.5-5.1); Sodium 136 mmol/L (135-145); eGFR 34.15
[2023-07-30 14:37] LABS: Glucose - Point of Care 177 mg/dl (70-99)
--- NOTE | 2023-07-30 16:11 | W.PN.HOSP.TC ---
Today's Communication/Plan
-
IV Bumex drip. IV antibiotics. Mechanical ventilation
Assessment / Plan
Assessment / Plan
Physical exam:
General: Acutely ill. On the ventilator.
HEENT: Normocephalic, Atraumatic and Moist Mucous Membranes
Respiratory: Coarse crackles bilateral; Negative Wheezes or Rhonchi
Cardiac: Irregular rate and rhythm and S1/S2
GI: Soft, Nontender and Nondistended
Extremities: Bilateral edema
Neuro: Sedated on the vent
A/P:
Cardiorespiratory arrest:
Patient with sinus bradycardia cardiac arrest
Temporary pacer in place
Evaluation for permanent pacemaker if indicated
Discussed with family at bedside today on 07/29
Discussed with RN at bedside as well
Shock:
Cardiogenic versus septic or both
Continue pressors norepinephrine and dopamine drip
Acute hypoxic respiratory failure:
Remains on the mechanical ventilator
Continue diuresis
Continue antibiotic
Acute on chronic diastolic congestive heart failure:
On IV diuresis, on Bumex drip
Monitor electrolytes and renal function
Monitor ins and outs
Cardiology on board
Elevated troponin/concern for non-STEMI:
Rule out acute coronary syndrome but appears to be elevated troponin due to non-ischemic myocardial injury
Trend cardiac enzymes
Continue aspirin and statin
Cardiology on board
Acute kidney injury:
Likely cardiorenal component
Monitor renal function while diuresing
Paroxysmal atrial fibrillation:
Anticoagulation on hold
No rate control especially in the setting of bradycardia
Anemia:
Workup in progress
Monitor hemoglobin closely
Diabetes mellitus type 2:
Insulin sliding scale
Monitor blood sugar and adjust medications accordingly
Hypertension:
Hold antihypertensive for now due to shock
Hyperlipidemia:
Hold statins for now
DVT prophylaxis:
SCDs
CODE STATUS:
Full code
Total Critical Care Time 40 minutes. I was immediately available to the patient and staff. I personally examined, reviewed labs, diagnostic images/reports, interpretations, treatment plans, discussed patient care with other providers and family
or caregivers (if patient is unable to make decisions), entered orders as appropriate and documented the medical record.
Anticipated Discharge: > 48 hours
Subjective/Interval History
-
Date of Service: July 30, 2023
Patient seen and examined today.
Objective Data
-
Labs:
Laboratory Results
07/30/23 07/30/23 07/30/23
04:31 04:34 08:23
WBC 15.8 H
Hgb 7.9 L
Hct 24.4 L
Plt Count 252 D
PT 21.0 H
INR 1.83
HCO3 23.5 23.9
Sodium 133 L
Potassium 3.7
Chloride 104
Carbon Dioxide 25
BUN 54 H
Creatinine 1.7 H
Glucose 183 H
Calcium 8.2 L
07/30/23
13:51
WBC
Hgb
Hct
Plt Count
PT
INR
HCO3 25.5
Sodium 136
Potassium 3.3 L
Chloride 103
Carbon Dioxide 25
BUN 51 H
Creatinine 1.5 H
Glucose 140 H
Calcium 9.0
Vital Signs:
Vital Signs
Temp Pulse Resp BP Pulse Ox
100.5 F H 98 16 99/62 98
07/30/23 15:15 07/30/23 15:15 07/30/23 15:15 07/30/23 15:00 07/30/23 15:15
I&O
07/29/23 07/30/23 07/31/23
06:59 06:59 06:59
Intake Total 1142.5 / 1187.8 512.9 / 512.9
Output Total 1625 / 1800 1999
Balance -482.5 / -612.2 -1487.1 / -1487.1
Review of Systems
-
Unable to obtain full review of systems at this time due to: Patient Intubation
--- NOTE | 2023-07-30 17:00 | PTCARENOTE ---
Remains in a fibb. Dr. Marion here and updated. New orders received. Blood cultures urine cultures sent. Keep intubated and sedated overnight and attempt to wean vent in am Monday.
[2023-07-30] MEDS: NSS (PRESERVATIVE FREE) 10 ML IV (17:13)
[2023-07-30] MEDS: PROTONIX IV 40 MG IV (17:13)
[2023-07-30] MEDS: SUBLIMAZE 50 MCG IV (17:43)
[2023-07-30 18:04] LABS: Glucose - Point of Care 145 mg/dl (70-99)
[2023-07-30] MEDS: NOVOLOG FLEXPEN-LOW RESISTANCE SC (18:04)
--- NOTE | 2023-07-30 20:00 | PTCARENOTE ---
PT AAO to self sedated on vent. Afib on monitor vss, pt on vent O2 saturation 96%,GI wnl, Miller adequate output, all tushar and arterial access sights wnl. see worklist for detailed assessment
[2023-07-30] MEDS: TYLENOL 650 MG PO (23:25)
[2023-07-30] MEDS: HEPARIN 5000 UNITS SC (23:33)
[2023-07-31] VITALS (42 sets, daily range): BP systolic 78–110; BP diastolic 49–75; BMI 34.2
--- NOTE | 2023-07-31 | PTCARENOTE ---
no change from previous assessment
[2023-07-31] MEDS: LEVOPHED 250 IV ×2 (00:21→21:38)
[2023-07-31] MEDS: NOVOLOG FLEXPEN-LOW RESISTANCE 2 UNITS SC ×2 (01:56→23:53)
--- NOTE | 2023-07-31 03:54 | PTCARENOTE ---
no change from previous assessment
[2023-07-31 04:18] LABS: B.E. 1.8 mmol/L; HCO3 25.3 mmol/L (21-28); O2 Saturation % 97.2 % (94-98); PCO2 34 mmHg (32-35); PO2 79 mmHg (83-108); pH 7.48 (7.35-7.45)
[2023-07-31 04:35] LABS: Hemoglobin 8.2 g/dL (12.0-16.0); Mean Corp Hgb Conc. 32.8 g/dL (33.0-37.0); Mean Corpuscular Hgb 25.2 pg (27.0-31.0); Mean Corpuscular Volume 76.9 fL (81.0-99.0); Mean Platelet Volume 10.5 fL (7.4-10.4); Platelet Count 270 10^3/uL (130-400); Red Blood Cell Count 3.25 10^6/uL (4.20-5.40); White Blood Cell Count 15.4 10^3/uL (4.8-10.8)
[2023-07-31 05:06] LABS: ALT (SGPT) 61 U/L (0-35); AST (SGOT) 71 U/L (14-36); Alkaline Phosphatase 68 U/L (38-126); Blood Urea Nitrogen 49 mg/dl (7-17); Calcium 8.9 mg/dl (8.4-10.2); Carbon Dioxide 26 mmol/L (22-30); Chloride 103 mmol/L (98-107); Direct Bilirubin 0.7 mg/dl (0.0-0.4); Estimated Creatinine Clearance 28 ml/min; Glucose 148 mg/dl (70-99); Magnesium 1.9 mg/dl (1.6-2.3); Potassium 2.9 mmol/L (3.5-5.1); Sodium 139 mmol/L (135-145); Total Bilirubin 1.1 mg/dl (0.2-1.3); Total Protein 5.6 g/dl (6.3-8.2)
[2023-07-31 05:09] LABS: NT-proBNP 22000 pg/ml
[2023-07-31 05:16] LABS: Procalcitonin 4.19 ng/ml (0.0-0.25)
[2023-07-31] MEDS: BUMEX 50 IV (05:47)
[2023-07-31] MEDS: DIPRIVAN 100 IV ×3 (05:48→17:11)
--- NOTE | 2023-07-31 07:36 | W.PN.CD ---
Today's Communication / Plan
-
Continue down titration of inotropes/pressors.
D/C bumetanide gtt.
Start bumetanide 1 mg IV BID.
Agree with aaron vaca.
Transfer to ICU.
Impression / Plan
-
Impression/Plan: 82 y/o female with NIDDM, AF on apixaban, HTN, HLD, and severe CAD admitted with acute on chronic HFpEF and CIRO, found to be newly anemic and requiring transfusion, subsequently developing worsening hypoxic respiratory failure and
sinus/bradycardic arrest and ventilator dependent respiratory failure.
#Hypoxic respiratory failure/PNA
-Multifactorial, related to acute on chronic HFpEF, COPD, PNA.
-ABG has normalized. pH 7.4, pCO2 40, pO2 70.
-Repeat CXR this morning.
-Wean ventilator to extubate.
-Treatment of HFpEF as below.
-Serial ABGs.
-Remains on cefepime for likely PNA.
-Agree with aaron vaca.
#HFpEF
-Acute on chronic. Improving.
-Cardiogenic shock at cath (PCWP > 24, CI < 2.2).
-Norepinephrine/dobutamine for chemical support and inotropy. CI now consistently > 2.4.
-Bumetanide gtt at 1 mg/hour.
-She is not a candidate for MCS given her PAD.
-She is nearly 3L negative by I/O. CI/Renal function are improving.
-Down titrate inotropes/pressors as CI/MAP will allow.
-I suspect she has never been fully diuresed during previous hospitalizations.
-D/C bumetanide gtt. Start bumetanide 1 mg IV BID.
-Maintain K > 4, Mg > 2, Ca > 8 and PO4 > 2.5.
#CAD
-Chronic, severe.
-Coronary angiography unchanged from 02/2023.
-Any intervention would be a highly complex and high risk procedure. If she fails to improve, we will revisit this option. She is not a candidate for CABG and declined this in the past.
-Troponin peaked on arrival (21) and falling. D/C trend. She likely peaked at [facility] (3000 on their scale).
-Echocardiogram ordered/pending.
#CIRO
-New diagnosis. Normal BUN/Cr at the time of cath in February.
-I suspect cardiorenal syndrome.
-Improving with diuresis.
-UA shows large blood/RBC's, moderate bacteria/yeast. Repeat UA shows less evidence of infection, persistent 3+ hematuria.
-Renal/bladder US unremarkable. She will need a Renal US when extubated.
#Sinus/Bradycardic arrest/PAF
-Confirmed by Dr. Maria.
-Could be related to pulmonary/hypoxic respiratory failure vs. underlying conduction failure.
-TPM placed.
-Diurese and consider PPM if indicated. Could this have all been from respiratory failure rather than a true conduction issue?
#PAF
-Lapsed into AF with moderate RVR (110-120 this morning).
-No role for rate control at this time.
-CHADS2-Vasc = 7 (CHF, HTN, Age x2, DM, Vascular Disease, Female Gender).
-Anticoagulation on hold due to anemia.
#Anemia
-New diagnosis.
-Per notes, H/H has been drifting over several months.
-FOBT pending.
-B12/Folate normal.
-Peripheral smear does not show schistocytes. Reticulocyte count is high - this effectively r/o hemolytic anemia or marrow failure.
-Fe/Fe% are low with a normal TIBC and Ferritin. There is clearly a component of Fe deficiency and AOCD. Ferritin is > 100, but should be much higher as an acute phase reactant.
-Thiamine pending.
-PO FeSO4.
-Repeat UA continues to show 3+ hematuria, less evidence of infection.
-Renal/bladder US unremarkable.
-Transfuse for Hbg < 7/Hct < 21.
#NIDDM
#HTN
#HLD
#Dispo
-Given her cardiac improvement and persistence of hypoxia and PNA, we will transfer to ICU. Discussed with Pulm/CC and Hospitalist.
Critical Care Time = 39 minutes.
Subjective/Interval History:
Patient remains intubated/sedated.
She is diuresing well and CI is stable.
Renal function improving.
Temp up to 38.1 overnight and she remains hypoxic.
CXR shows improvement (on my interpretation) but there is still alveolar infiltrates.
Pulm/CC consulted.
Pro-calcitonin elevated (>4). Patient walker-cultured.
Bladder US is unremarkable.
Repeat UA continues to show 3+ hematuria, less evidence of infection.
DATA:
CXR, 07/29/2023:
IMPRESSION:
1. SEVERE ACUTE ALVEOLAR and INTERSTITIAL CARDIOGENIC PULMONARY EDEMA.
2. Small right pleural effusion.
3. Mild cardiomegaly.
4. Cardiac pacemaker wire projecting over the right ventricle.
5. Pulmonary arterial catheter in place with the tip in the right lower lobe pulmonary artery.
6. Endotracheal tube in place.
Cardiac Catheterization/TPM placement, 07/29/2023:
CONCLUSIONS:
1. Right dominant circulation with a densely calcified 90% subtotal lesion in the ostium of the RCA, tandem, densely calcified 70% 80% lesions in the crux of the RCA, a 30-40% distal tapering of a densely calcified left main coronary artery, a 50
to 60% lesion in the mid LAD and a densely calcified, 90% lesion in the ostium of the left circumflex. CHELO-3 flow is preserved in all vessels. Coronary anatomy is unchanged from prior cardiac catheterization of 02/21/2023.
2. Severely elevated filling pressures (LVEDP = 25 mmHg, PCWP = 27 mmHg at 75.8 kg).
3. Severely depressed cardiac function (cardiac index 1.88 L/min/m� on norepinephrine 10 mcg/kg/min) consistent with cardiogenic shock.
4. Bradycardic/sinus arrest, now status post successful placement of a temporary pacemaker.
Physical Exam
Vital Signs/Labs
Vital Signs
Temp Pulse Resp BP Pulse Ox
37.6 C 102 19 100/63 98
07/31/23 07:00 07/31/23 07:18 07/31/23 07:18 07/31/23 07:00 07/31/23 07:18
07/29/23 07/30/23 07/31/23
11:59 11:59 11:59
Actual Weight 79.5 kg
07/31/23 04:11
07/31/23 04:11
PT 21.0 Sec (11.4-14.6) H 07/30/23 04:34
INR 1.83 07/30/23 04:34
APTT 56.8 Sec (23.4-35.0) H 07/29/23 18:02
Magnesium 1.9 mg/dl (1.6-2.3) 07/31/23 04:11
Triglycerides 124 mg/dl (10-149) 07/29/23 23:04
07/31/23
04:11
Kzf-J-Myfddzlbgoa Pept 35056
LAB Results
07/29/23 07/29/23 07/30/23
17:52 23:04 04:34
Troponin I 21.000 H* 15.900 H* 12.700 H*
07/30/23 07/30/23
13:00 13:51
Troponin I Cancelled 11.700 H*
Physical Exam
Constitutional: No acute distress and Comfortable
EENT: Anicteric and Moist mucous membranes
Cardiovascular: Rhythm/rate is irregular, Pedal edema present, S1S2 is normal and Murmur/rub/gallop absent
Respiratory: Lungs clear to auscul., Wheeze Absent, Crackles Absent, Rhonchi Absent and Labored respirations
GI: Soft, Distention absent, Flat, Non tender and Normal bowel sounds
Neuro/Psych: Other (Intubated/sedated.)
Data Reviewed
-
Date of Service: July 31, 2023
Medical Decision Making: Reviewed Test Results, Independent Historian Assessment and Test Interpretation
EKG: Tracing Personally Visualized and interpreted and Report Reviewed by me
Echo: Ordered by me
X-Ray/CT/US/MRI/NUC/PET: Image Personally Visualized and interpreted, Report Reviewed by me and Discussed with Nurse
Medical Tests (PFT, Pathology etc): Image Personally Visualized and interpreted, Report Reviewed by me and Discussed with Nurse
Labs: Labs Reviewed by me
Old Records: Reviewed
--- NOTE | 2023-07-31 07:42 | PTCARENOTE ---
Assumed care of patient at 0700. Pt is intubated and sedated. Bilateral soft wrist restraints in place. Pt remains Afib with HR 102. BP 110/56 MAP 75. PA pressure 36/20, CVP 8, CO 3.89, CI 2.25, SVR 1377. Left femoral transvenous V wire in place set
to rate 60 output 20. Pulses palpable. +2 LE edema present. #[address] at 22cm on left lip. Vent set to AC 40% FiO2, rate 16, TV 500, PEEP 5. Pulse oximetry 97%. OG tube in place. Bowel sounds hypoactive. Miller catheter in place draining
yellow urine. Left femoral [place] intact. Right femoral triple lumen intact. Right IJ [place]-Soila catheter in place at 50cm. Pt remains on Bumex 1mg/hr, Propofol 35mcg/kg/min, Levo 2mcg/min.
[2023-07-31] MEDS: KCL ELIXIR 40 MEQ TUBE ×3 (08:24→16:25)
[2023-07-31] MEDS: HEPARIN 5000 UNITS SC ×3 (08:24→23:53)
[2023-07-31] MEDS: FERROUS SULFATE ORAL LIQUID 300 MG TUBE ×2 (08:24→21:17)
[2023-07-31] MEDS: PROTONIX IV 40 MG IV (08:24)
[2023-07-31] MEDS: NSS (PRESERVATIVE FREE) 10 ML IV (08:24)
[2023-07-31 08:30] LABS: Glucose - Point of Care 177 mg/dl (70-99)
[2023-07-31] MEDS: NOVOLOG FLEXPEN-LOW RESISTANCE 1 UNITS SC ×2 (08:43→12:00)
[2023-07-31] MEDS: TYLENOL 650 MG PO (09:06)
--- NOTE | 2023-07-31 09:20 | W.PN.HOSP.TC ---
Today's Communication/Plan
-
Recheck potassium level
Follow urine output/weight/renal function
Continue Bumex
As needed dobutamine for heart rate control
Ventilator weaning per policy service coordinator
continue abx
Assessment / Plan
Assessment / Plan
TTE Left ventricle is mildly dilated.
Severely reduced left ventricular systolic function. Inferolateral, anterolateral and inferior wall akinesis. Left ventricular ejection fraction is 30-35%.
Severely dilated left atrium. Moderate mitral regurgitation. Mild aortic stenosis, mean gradient 12 mmHg. No prior study available for comparison.
CXR 07/30
1. Bilateral alveolar pulmonary edema with slight improvement compared to the chest radiograph from 07/30/2023.
2. Support tubes and lines, as detailed above.

1. In hospital Cardiorespiratory arrest with bradycardia
Vent dependent resp failure
Pneumonia
-Patient with sinus bradycardia cardiac arrest
-Patient was requiring temporary pacing for bradycardia.
-Cardio following and help appreciated.
-Patient was intubated during cardiac arrest. Vent weaning per policy service coordinator.
-Covered with cefepime/Diflucan. Respite culture growing Luisa only.
-Legionella/streptococcal negative. COVID pending.
2. Cardiogenic Shock
-Requiring vasopressors post cardiac arrest likely due to suppressed cardiac function
-Potential differential of ongoing sepsis also playing a role
-Not a candidate of MCS with peripheral vascular disease
-Being treated for underlying issues
-Continue pressors norepinephrine and dobutamine drip as needed
3, Acute on chronic diastolic congestive heart failure:
-On IV diuresis, on Bumex drip
-Weight slowly downtrending
-Monitor electrolytes and renal function
-Monitor ins and outs
-Cardiology on board
4. Elevated troponin with Type II ME
-Left heart catheterization showing known severe CAD. Not amenable to bypass.
-Any PCI option remains high risk procedure and cardiac will revisit if not improved medically
-Troponin of 21, trending down.
5. Acute kidney injury:
-Presumed component of cardiorenal syndrome
-UA showing minimal RBC 7-10, few bacteria. No proteinuria.
-renal function trending down, cr 1.4 today, max 2.1 at admit.
-eventual renal bladder US
6. Paroxysmal atrial fibrillation:
Anticoagulation on hold
No rate control especially in the setting of bradycardia
7.Presumed Iron def Anemia
-Microcytic anemia with ferritin of 108 (acute phase reactant) with Iron sat 8%
-check stool for occult blood
-High [place]-vasc score and will need to be back on AC eventually
8. Diabetes mellitus type 2:
-Insulin sliding scale
-Monitor blood sugar and adjust medications accordingly
9. Hypokalemia
-on Kcl liquid through tube
-recheck in afternoon
10. Essential Hypertension:
-Hold antihypertensive for now due to shock
11. Hyperlipidemia:
- Hold statins for now
12. Hyponatremia -resolved
DVT prophylaxis: SCDs
CODE STATUS: Full code
Total critical care time 38 mins . Total critical care time documented does not include time spent on separately billed procedures or the services of residents, students, nurses or physician assistants. I personally saw and examined the patient. I
have reviewed all diagnostic interpretations and treatment plans as written. I was present for the collazo portions of any procedures performed and the inclusive time noted in any critical care statement. Critical care time includes patient management
by me, time spent at the patients bedside, time to review lab and imaging results, discussing patient care, documentation in the medical record, and time spent with the family or caregiver.
Anticipated Discharge: > 48 hours
Subjective/Interval History
-
Date of Service: July 31, 2023
Remains intubated
Off of dobutamine
Small vasopressor/Levophed need
Off of transcutaneous pacing
[place]-Soila catheter/a line in place
Objective Data
-
Labs:
Laboratory Results
07/31/23
04:11
WBC 15.4 H
Hgb 8.2 L
Hct 25.0 L
Plt Count 270
HCO3 25.3
Sodium 139
Potassium 2.9 L
Chloride 103
Carbon Dioxide 26
BUN 49 H
Creatinine 1.4 H
Glucose 148 H
Calcium 8.9
Total Bilirubin 1.1
AST 71 H
ALT 61 H
Alkaline Phosphatase 68
Vital Signs:
Vital Signs
Temp Pulse Resp BP Pulse Ox
99.7 F 77 19 105/65 99
07/31/23 09:00 07/31/23 09:00 07/31/23 09:00 07/31/23 08:00 07/31/23 09:00
I&O
07/30/23 07/31/23 08/01/23
06:59 06:59 06:59
Intake Total 1142.5 / 1187.8 672.5 / 740.6 180.5 / 180.5
Output Total 1625 / 1800 4150 / 4475 700 / 700
Balance -482.5 / -612.2 -3477.5 / -3734.4 -519.5 / -519.5
Review of Systems
-
Unable to obtain full review of systems at this time due to: Acuity and Patient Intubation
Physical Exam
-
General: No Apparent Distress and Comfortable
HEENT: Other (Intubated on ventilator)
Respiratory: Clear to Auscultation
Cardiac: Regular Rhythm and S1/S2; Negative Murmur or Rub
GI: Soft, Nontender and Nondistended
Musculoskeletal: No Edema
Neuro: Sedated
--- NOTE | 2023-07-31 09:36 | CM ---
Reviewed chart. Mrs. Reinoso is in the operating room today. Prior to admission she resides alone in a one story home with one step to enter. Medical work-up in progress. The discharge plan is to retrun home with a home visit by the
Cardiothoracic Transitional Care Nurse when medically stable.
[2023-07-31] MEDS: MAXIPIME 1000 MG IV ×2 (10:08→21:17)
[2023-07-31] MEDS: STERILE WATER FOR INJECTION 10 ML IV ×2 (10:08→21:17)
--- NOTE | 2023-07-31 10:45 | CARDSERVLU ---
Echocardiogram with Lumason completed after protocol screening completed. Allergies verified.
Patent IV site: __R IJ cordud___
IV site flushed with 0.9% NaCl pre and post administration.
Diluted bolus method utilized to enhance visualization of ventricular kendrick.
Total volume given: __2.5__ mL
Patient tolerated all procedures well without complications.
[2023-07-31 11:08] LABS: B.E. 2.6 mmol/L; HCO3 25.7 mmol/L (21-28); O2 Saturation % 97.5 % (94-98); PCO2 33 mmHg (32-35); PO2 80 mmHg (83-108); Potassium 4.8 mMOL/L (3.5-5.1)
[2023-07-31] MEDS: KCL ELIXIR TUBE ×2 (11:18→15:46)
--- NOTE | 2023-07-31 11:45 | PTCARENOTE ---
Bumex gtt off per Dr. Gómez. K replaced. Weaning propofol gtt. Pt placed on CPAP, pt tachypneic with CPAP. ABG collected and reviewed, placed back on AC fiO2 40%. Pt remains on Levo gtt now at 4mcg/min. BP 112/63 MAP 82. PA 53/28, CVP 16. CO 3.48,
CI 2.01, SVR 1562.
[2023-07-31 12:03] LABS: Glucose - Point of Care 187 mg/dl (70-99)
--- NOTE | 2023-07-31 12:10 | PTCARENOTE ---
Received pt from CVICU via bed being bagged by RPT. She is SR 90'2 on the monitor. She opened her eyes briefly to verbal and tactile stimuli, squeezed my hand and moved her legs when asked. Bilateral soft wrist restraints intact. +2 L/E edema,
knee-hi SCD's intact. Weak pedal pulses, good radial pulses. Right IJ SGC via cordis secured @55cm, transduced, calibrated and monitored. Right IJ cordis with 0.9nss KVO. Left femoral venous cordis capped with TVP connected but off. Dressing CDI.
Right femoral TL CVC with Propofol @ 30mcg/kg/min and Norepinephrine @ 4mcg/min via distal port. Other two ports flushed and patent. Right femoral Arterial line transduced, calibrated and monitored with all ports patent and secured. #7 ETT secured
23 cm left lip. Tolerating AC 16/500/. 40/+5. Pulse ox 97%. Breath sounds coarse throughout. Suction for moderate thick chamorro secretions. Oral thrush present. Left breast fold with yeast rash. Recent UA with yeast. Dr. Penaloza notified. Dr. Gómez
TT'd regarding transfer orders, Removal of SGC being she has been off Dobutamine for more than 24 hours, & Bumex drip was turned off by prior RN @ 6760, and to clarify if we are continuing with the two potassium orders given recent K+4.8. Hypoactive
BSX4. Miller catheter secured, draining clear yellow urine. Aspiration precautions maintained. Safe environment maintained.
--- NOTE | 2023-07-31 12:25 | CM ---
Reviewed chart. Telephone call to Terry castro , ([phone]) to review discharge plans. He states prior to admission he resides with her in a two story home with five steps to enter. He states she has a first floor set-up once
inside the home. He states prior to admission she was independent with ambulation and adls most of the time. Sometimes she would use a single point cane or rolling walker if needed. She has a single point cane and rolling walker at home. She has
had [facility]NA Services in the past. She also went to rehab after her hip surgery. Will need to see her current functional level to see if she will have any skilled care needs. Medical work-up in progress. The discharge plan is to return home with VNA
Services versus SNF/Rehab. if indicated when medically stable.
--- NOTE | 2023-07-31 12:30 | PTCARENOTE ---
Pt's grand-son Carlin entered the room. He was updated on the plan of care, and provided pamphlet regarding vising hours and the unit phone number for updates. He mentioned that she was a DNR @ [facility] prior to transport here and allowed
intubation but he expressed does not want CPR or defibrillation for his grand-mother. Dr. Penaloza notified upon entering the room.
--- NOTE | 2023-07-31 12:39 | W.PN.INTV ---
Today's Communication / Plan
Recommendations
Continue mechanical ventilation will adjust as necessary
Not ready for spontaneous breathing trial
Wean down vasopressors
Transition to IV intermittent diuretics
Continue antibiotic
Follow cultures
Check MRSA screen
Check COVID testing
Follow renal function electrolytes from
Potassium has been repleted
Recheck later electrolytes.
DNR status
Assessment
-
Assessment: 82-year-old female with a past medical history of CAD, DM type II, atrial fibrillation on Eliquis, aortic stenosis and HFpEF who was admitted to outside hospital due to weakness and shortness of breath. Patient also syncopized while at
home which was witnessed by her grandson. Patient was reportedly recently admitted and discharged from [facility] with acute on chronic HFpEF with pneumonia, treated with antibiotics but had been continued to experience shortness of breath since
discharge. The patient went to outside hospital and given Lasix in the ER which caused hypotension. She developed CIRO with anemia and coagulopathy and required vasopressors with Levophed. 1 unit PRBCs was given as well as antibiotics for possible
pneumonia. Patient then developed bradycardia and cardiac arrest requiring CPR --> ROSC obtained. Echo showed inferolateral wall motion abnormalities and transfer to [facility] was arranged for consideration of PPM. When the transfer
medical personnel arrived to outside hospital, patient appeared to be in worsening respiratory distress and was intubated prior to transfer. Once patient arrived here she was brought immediately to the Customer Services Coordinator. There was a densely calcified 90%
lesion in the ostium of the left circumflex as well as a 90% subtotal lesion in the ostium of the RCA. Also densely calcified 70-80% lesions in the crux of the RCA. Apparently the coronary anatomy is unchanged from prior cardiac catheterization
from February 2023. There was however severely elevated filling pressures with LVEDP 25 mmHg and PCWP of 27 mmHg. Also cardiac index was low at 1.88 while on Levophed consistent with cardiogenic shock. Medical management was decided given the
unchanged coronary anatomy compared to 02/2023, and dobutamine was started in the Customer Services Coordinator as well as Bumex drip. Temporary pacemaker also placed. Labs showed leukocytosis to 12.3, anemia to 9, initially was hypercapnic with pH of 7.21, pCO2 55,
hyponatremic to 132, CIRO with creatinine 2.1, elevated troponin of 21 with trace leukocyte esterase on urinalysis with moderate urine bacteria. Initial glucose via POCT was 223. Urine culture and respiratory culture were collected. CXR showed
severe pulmonary edema with a retrocardiac opacity. Unable to rule out concomitant pneumonia. Antibiotics were continued as well as dobutamine, Levophed, Bumex and patient was transferred to the CVICU for further care. Critical care service now
consulted for additional management/recommendations.
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
Impression:
#In-Hospital Cardiac Arrest with bradycardia just prior to arrest now s/p TVP --> suspect she arrested due to severe hypoxia from both acute pulmonary edema (?TACO vs acute HFpEF) + /- pneumonia
#Acute respiratory failure with hypoxia and hypercapnia on mechanical ventilation
#Pneumonia - she certainly aspirated during her cardiac arrest; it is unclear if she had a PNA prior to her recent hospitalization at [facility]
#Shock - cardiogenic and suspected septic as well
#Abnormal UA with suspected UTI
#Leukocytosis with left shift suspicious for sepsis given bilateral opacities on CXR concerning for suspected pneumonia
#Acute kidney injury
#Anemia
#A-fib on Eliquis
#DM type II
Plan:
Continue mechanical ventilation with daily SAT/SBT if clinically appropriate
- Titrate FiO2 and PEEP to maintain SpO2 >90-94%
Not ready for spontaneous breathing trial today 07/31/2023.
Chest x-ray 07/31/2023: Reviewed, showed bilateral infiltrates suggestive of pulmonary edema. Improved compared to 07/30/2023.
Sedation with propofol and fentanyl.
Target RASS (-1 to 0)
ABG 7.48/34/79
-
Fever curve improved/persistent leukocytosis noted
Chest x-ray with multifocal infiltrates. Cannot rule out pneumonia.
-Legionella, Streptococcus antibodies negative.
Respiratory culture with Luisa albicans
Urine culture with Luisa albicans
Blood culture pending
Check MRSA screening
Continue broad-spectrum antibiotics for now-cefepime
Will Check for Covid as well.
Suspect respiratory Luisa is contaminant
-
Pulmonary edema component:
Prior history of severe coronary artery disease. Not a candidate for any intervention. Case discussed with cardiology.
Cardiogenic shock component: Pulmonary capillary wedge pressure greater than 24, cardiac index less than 2.2.
Cardiac index improved
So far fluid balance negative. Clinically improved from the cardiac perspective.
Bumex drip discontinued.
On IV Bumex twice a day per cardiology
Echocardiogram noted
-
Shock: Septic/possibly cardiogenic component as well.
- Continue vasopressors and wean as tolerated to maintain MAP>65
Echocardiogram 07/31/2023: Left ventricle ejection fraction 30-35%. Inferolateral, anterolateral and inferior wall akinesis. Severely reduced left ventricular systolic function. Severely dilated left atrium. Moderate MR. Mild aortic stenosis.
- Heart rate control with goal <110bpm
- Replete electrolytes with K>4, Mg>2
-
Acute kidney injury: Possibly cardiorenal.
Miller in place, follow urinary output
Ischemic injury also possible with hypotension and sepsis. Continue hemodynamic support
Creatinine improving
-
Anemia: No evidence for acute bleed
- transfuse as needed to keep Hb>7, plt>20k
- Maintain euglycemia with goal BG 140-180
-Will start tube feedings per
- prn nebulized bronchodilators
- stress ulcer ppx: PPI
- DVT ppx - HSQ
Dr. Penaloza updated grandson at the bedside. Long discussion regarding critical illness. DNR status has been instituted
Critical care statement: A total of 42 minutes of critical care time was provided for this patient today. This includes management of unstable vital signs, evaluation of the patient at bedside, reviewing the patient's pertinent medical records
including radiographs, microbiology, laboratory evaluations, and discussion with primary team, consultants, pharmacy, nutrition, physical therapy, case management, charge nurse, critical care nursing, and respiratory therapy.

Data:
CXR 07-30-2023:
1. SEVERE ACUTE BILATERAL ALVEOLAR CARDIOGENIC PULMONARY EDEMA which appears unchanged.
2. Mild cardiomegaly.
3. Endotracheal tube, nasogastric tube, pulmonary arterial catheter, and right ventricular cardiac pacing wire in place.
Subjective Dataa
Subjective Data
Date of Service:
Date of Service: July 31, 2023
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
Subjective:
Remain on mechanical ventilation overnight.
This morning did not tolerate spontaneous breathing trial.
Review of Systems
General: Unobtainable - Sedation
Objective Data
Data Reviewed
Vital Signs / I&O / Oxygen:
Vital Signs
Temp Pulse Resp BP Pulse Ox
99.2 F 94 30 102/65 95
07/31/23 12:00 07/31/23 12:17 07/31/23 12:17 07/31/23 12:17 07/31/23 12:27
Intake and Output
07/30/23 07/31/23 08/01/23
06:59 06:59 06:59
Intake Total 1142.5 / 1187.8 672.5 / 740.6 348.3 / 348.3
Output Total 1625 / 1800 4150 / 4475 885 / 885
Balance -482.5 / -612.2 -3477.5 / -3734.4 -536.7 / -536.7
SaO2 [A/C] 95
SaO2 97
Physical Exam
General: Respiratory Distress (n)
HEENT: Normocephalic and Other (ET tube in place)
Cardiovascular: S1-S2
Respiratory: Clear and Non-Labored Respirations
GI: Soft and Non Distended
Neurology: Other (Sedated, on mechanical ventilation.)
Labs/Micro/Reports
Lab Data
07/31/23 04:11
07/31/23 04:11
Laboratory Results
07/30/23 07/31/23 07/31/23
13:51 04:11 11:00
pH 7.47 H 7.48 H 7.50 H
pCO2 35 34 33
pO2 116 H 79 L 80 L
HCO3 25.5 25.3 25.7
O2 Delivery Level Not Reportable
Microbiology
07/30/23 11:14 Endotracheal Respiratory Culture - Preliminary
Luisa albicans
07/30/23 11:14 Endotracheal Gram Stain - Preliminary
07/29/23 23:03 Urine Urine Culture - Final
Luisa albicans
07/30/23 17:20 Urine Legionella Urinary Antigen - Final
Negative for Legionella pneumophila Serogroup 1 antigen.
A negative result does not rule out the possiblity of
Legionella infection due to other serogroups or species of
Legionella. Clinical correlation is recommended.
07/30/23 17:20 Urine Streptococcus pneumoniae Antigen (M - Final
Negative for Streptococcus pneumoniae antigen.
A negative result does not exclude infection with
Streptococcus pneumoniae. Clinical correlation is
recommended.
--- NOTE | 2023-07-31 14:15 | PTCARENOTE ---
Dr. Gómez at the bedside removed right IJ SGC, Right IJ Cordis remains. 0.9NSS now via left femoral cordis. TVP remains off. Will keep TVP in place in as per Dr. Gómez.
[2023-07-31] MEDS: SUBLIMAZE 100 IV (14:30)
[2023-07-31] MEDS: SUBLIMAZE 80 MCG IV (14:32)
[2023-07-31] MEDS: DIFLUCAN 200 MG TUBE (14:52)
[2023-07-31 14:57] LABS: COVID-19 Antigen Negative (Negative)
[2023-07-31 15:02] LABS: Blood Urea Nitrogen 49 mg/dl (7-17); Calcium 8.4 mg/dl (8.4-10.2); Carbon Dioxide 28 mmol/L (22-30); Chloride 105 mmol/L (98-107); Estimated Creatinine Clearance 28 ml/min; Glucose 141 mg/dl (70-99); Magnesium 1.8 mg/dl (1.6-2.3); Potassium 3.6 mmol/L (3.5-5.1); Sodium 138 mmol/L (135-145)
[2023-07-31] MEDS: MAGNESIUM SULFATE 50 IV (16:25)
[2023-07-31] MEDS: NOVOLOG FLEXPEN-LOW RESISTANCE SC (17:57)
[2023-07-31 18:07] LABS: Glucose - Point of Care 147 mg/dl (70-99)
--- NOTE | 2023-07-31 20:12 | PTCARENOTE ---
Assumed care of patient. Patient in bed, intubated, 7 ETT 23@ lip. vent settings checked. Patient able to open eyes and follow simple commands. Patient on monitor, vital signs stable. TVP still in place but off per cardiology orders. Patient on
levo, fentanyl, and prop through right femoral triple lumen. Pt also has RIJ cordis and left groin cordis with an a-line. A-line zeroed and flushed, matching cuff pressures. Pt has kaye in place with clear yellow output. Patient remains in BL wrist
restraints. See worklist for full assessment. Will continue to monitor.
[2023-08-01] VITALS (52 sets, daily range): BP systolic 78–108; BP diastolic 51–74; BMI 31.5
[2023-08-01 00:03] LABS: Glucose - Point of Care 217 mg/dl (70-99)
--- NOTE | 2023-08-01 00:35 | PTCARENOTE ---
Patient reassessed, ventilator settings confirmed. No changes, See worklist. Will continue to monitor. IV drips remain the same
[2023-08-01] MEDS: DIPRIVAN 100 IV ×4 (01:43→23:54)
[2023-08-01 04:29] LABS: Hematocrit 23.6 % (37.0-47.0); Hemoglobin 7.8 g/dL (12.0-16.0); Mean Corp Hgb Conc. 33.1 g/dL (33.0-37.0); Mean Corpuscular Hgb 25.2 pg (27.0-31.0); Mean Corpuscular Volume 76.4 fL (81.0-99.0); Mean Platelet Volume 11.1 fL (7.4-10.4); Platelet Count 256 10^3/uL (130-400); Red Blood Cell Count 3.09 10^6/uL (4.20-5.40); Red Cell Dist. Width 18.7 % (11.5-14.5); White Blood Cell Count 13.9 10^3/uL (4.8-10.8)
[2023-08-01 04:51] LABS: Blood Urea Nitrogen 52 mg/dl (7-17); Calcium 8.6 mg/dl (8.4-10.2); Carbon Dioxide 25 mmol/L (22-30); Chloride 104 mmol/L (98-107); Estimated Creatinine Clearance 28 ml/min; Glucose 198 mg/dl (70-99); Potassium 3.4 mmol/L (3.5-5.1); Sodium 139 mmol/L (135-145); Triglycerides 101 mg/dl (10-149)
[2023-08-01 05:18] LABS: Magnesium 2.5 mg/dl (1.6-2.3)
[2023-08-01] MEDS: NOVOLOG FLEXPEN-LOW RESISTANCE 2 UNITS SC (05:54)
[2023-08-01] MEDS: KCL ELIXIR 40 MEQ TUBE (05:55)
[2023-08-01 05:58] LABS: Glucose - Point of Care 234 mg/dl (70-99)
[2023-08-01] MEDS: DIFLUCAN 100 MG TUBE (07:25)
[2023-08-01] MEDS: BUMEX 1 MG IV (07:25)
[2023-08-01] MEDS: HEPARIN 5000 UNITS SC ×3 (07:25→23:54)
[2023-08-01] MEDS: FERROUS SULFATE ORAL LIQUID 300 MG TUBE ×2 (07:25→19:56)
[2023-08-01] MEDS: PROTONIX IV 40 MG IV (07:26)
[2023-08-01] MEDS: NSS (PRESERVATIVE FREE) 10 ML IV (07:26)
[2023-08-01] MEDS: MIRALAX 17 GRAMS TUBE (07:26)
[2023-08-01] MEDS: STERILE WATER FOR INJECTION 10 ML IV ×2 (10:31→22:53)
[2023-08-01] MEDS: MAXIPIME 1000 MG IV ×2 (10:31→22:53)
[2023-08-01] MEDS: SUBLIMAZE 50 MCG IV ×2 (10:31→15:23)
[2023-08-01 10:56] LABS: Glucose - Point of Care 204 mg/dl (70-99)
[2023-08-01] MEDS: NOVOLIN R 4 UNITS IV (10:58)
[2023-08-01] MEDS: NOVOLIN R INSULIN INFUSION 100 IV (10:59)
--- NOTE | 2023-08-01 11:00 | PTCARENOTE ---
CCGP started. 4 units Regular insulin bolus followed by drip @ 3units/hr via right femoral TL CVC medial port. Repositioned for comfort. Pt expelled large amount of flatus with turn.
[2023-08-01] MEDS: DESENEX/MITRAZOL/ZEASORB 1 APPLIC TOPICAL ×2 (11:16→19:56)
--- NOTE | 2023-08-01 11:20 | W.PN.INTV ---
Today's Communication / Plan
Recommendations
Repeat ABG
Follow H&H
Continue tube feedings
Continue IV diuretics
Continue antibiotics
Mechanical ventilation without change
Did not tolerate spontaneous breathing trial
Sedation breaks per protocol.
Assessment
-
Assessment: 82-year-old female with a past medical history of CAD, DM type II, atrial fibrillation on Eliquis, aortic stenosis and HFpEF who was admitted to outside hospital due to weakness and shortness of breath. Patient also syncopized while at
home which was witnessed by her grandson. Patient was reportedly recently admitted and discharged from [facility] with acute on chronic HFpEF with pneumonia, treated with antibiotics but had been continued to experience shortness of breath since
discharge. The patient went to outside hospital and given Lasix in the ER which caused hypotension. She developed CIRO with anemia and coagulopathy and required vasopressors with Levophed. 1 unit PRBCs was given as well as antibiotics for possible
pneumonia. Patient then developed bradycardia and cardiac arrest requiring CPR --> ROSC obtained. Echo showed inferolateral wall motion abnormalities and transfer to [facility] was arranged for consideration of PPM. When the transfer
medical personnel arrived to outside hospital, patient appeared to be in worsening respiratory distress and was intubated prior to transfer. Once patient arrived here she was brought immediately to the Onboarding Specialist. There was a densely calcified 90%
lesion in the ostium of the left circumflex as well as a 90% subtotal lesion in the ostium of the RCA. Also densely calcified 70-80% lesions in the crux of the RCA. Apparently the coronary anatomy is unchanged from prior cardiac catheterization
from February 2023. There was however severely elevated filling pressures with LVEDP 25 mmHg and PCWP of 27 mmHg. Also cardiac index was low at 1.88 while on Levophed consistent with cardiogenic shock. Medical management was decided given the
unchanged coronary anatomy compared to 02/2023, and dobutamine was started in the Onboarding Specialist as well as Bumex drip. Temporary pacemaker also placed. Labs showed leukocytosis to 12.3, anemia to 9, initially was hypercapnic with pH of 7.21, pCO2 55,
hyponatremic to 132, CIRO with creatinine 2.1, elevated troponin of 21 with trace leukocyte esterase on urinalysis with moderate urine bacteria. Initial glucose via POCT was 223. Urine culture and respiratory culture were collected. CXR showed
severe pulmonary edema with a retrocardiac opacity. Unable to rule out concomitant pneumonia. Antibiotics were continued as well as dobutamine, Levophed, Bumex and patient was transferred to the CVICU for further care. Critical care service now
consulted for additional management/recommendations.
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
Impression:
#In-Hospital Cardiac Arrest with bradycardia just prior to arrest now s/p TVP --> suspect she arrested due to severe hypoxia from both acute pulmonary edema (?TACO vs acute HFpEF) + /- pneumonia
#Acute respiratory failure with hypoxia and hypercapnia on mechanical ventilation
#Pneumonia - she certainly aspirated during her cardiac arrest; it is unclear if she had a PNA prior to her recent hospitalization at [facility]
#Shock - cardiogenic and suspected septic as well
#Abnormal UA with suspected UTI
#Leukocytosis with left shift suspicious for sepsis given bilateral opacities on CXR concerning for suspected pneumonia
#Acute kidney injury
#Anemia
#A-fib on Eliquis
#DM type II
Plan:
Continue mechanical ventilation with daily SAT/SBT if clinically appropriate
- Titrate FiO2 and PEEP to maintain SpO2 >90-94%
Not ready for spontaneous breathing trial today 08/01/2023. Did not tolerate pressure support ventilation.
Chest x-ray 07/31/2023: showed bilateral infiltrates suggestive of pulmonary edema. Improved compared to 07/30/2023.
Continue mechanical ventilation without change.
Repeat ABG.
-
Sedation with propofol and fentanyl.
Target RASS (-1 to 0)
Sedation break per protocol.
-
Fever curve improved/persistent leukocytosis noted
Chest x-ray with multifocal infiltrates. Cannot rule out pneumonia.
-Legionella, Streptococcus antibodies negative.
Respiratory culture with Luisa albicans
Urine culture with Luisa albicans
Blood culture negative
MRSA screen pending
Continue broad-spectrum antibiotics for now-cefepime
COVID-negative
Suspect respiratory Luisa is contaminant
Start 7 days of enteral fluconazole. Has thrush/intertrigo and urine culture with Luisa
-
Pulmonary edema component:
Prior history of severe coronary artery disease. Not a candidate for any intervention. Case discussed with cardiology.
Cardiogenic shock component: Pulmonary capillary wedge pressure greater than 24, cardiac index less than 2.2.
Cardiac index improved
So far fluid balance negative. Clinically improved from the cardiac perspective.
On IV Bumex twice a day per cardiology
Echocardiogram noted
-
Shock: Septic/possibly cardiogenic component as well.
Resolved.
Vasopressors have been discontinued.
-
Echocardiogram 07/31/2023: Left ventricle ejection fraction 30-35%. Inferolateral, anterolateral and inferior wall akinesis. Severely reduced left ventricular systolic function. Severely dilated left atrium. Moderate MR. Mild aortic stenosis.
- Heart rate control with goal <110bpm
- Replete electrolytes with K>4, Mg>2
-
Acute kidney injury: Possibly cardiorenal.
Improved.
Miller in place, follow urinary output
Ischemic injury also possible with hypotension and sepsis.
Continue hemodynamic support
-
Anemia: No evidence for acute bleed
- transfuse as needed to keep Hb>7, plt>20k
Continue to follow.
- Maintain euglycemia with goal BG 140-180
Insulin drip will be started today 08/01/2023.
Tube feeding started-tolerating.
- prn nebulized bronchodilators
- stress ulcer ppx: PPI
- DVT ppx - HSQ
Dr. Penaloza updated grandson at the bedside 07/31/2023. Long discussion regarding critical illness. DNR status has been instituted
Critical care statement: A total of 35 minutes of critical care time was provided for this patient today. This includes management of unstable vital signs, evaluation of the patient at bedside, reviewing the patient's pertinent medical records
including radiographs, microbiology, laboratory evaluations, and discussion with primary team, consultants, pharmacy, nutrition, physical therapy, case management, charge nurse, critical care nursing, and respiratory therapy.

Data:
CXR 07-30-2023:
1. SEVERE ACUTE BILATERAL ALVEOLAR CARDIOGENIC PULMONARY EDEMA which appears unchanged.
2. Mild cardiomegaly.
3. Endotracheal tube, nasogastric tube, pulmonary arterial catheter, and right ventricular cardiac pacing wire in place.
Subjective Dataa
Subjective Data
Date of Service:
Date of Service: August 01, 2023
Chief Complaint: Stopper Setter Follow Up (Acute hypoxemic respiratory failure requiring mechanical ventilation.)
Subjective:
Sedated, critically ill.
On mechanical ventilation.
Requiring pressors
Review of Systems
General: Unobtainable - Sedation
Objective Data
Data Reviewed
Vital Signs / I&O / Oxygen:
Vital Signs
Temp Pulse Resp BP Pulse Ox
99 F 100 16 88/62 94
08/01/23 11:05 08/01/23 10:30 08/01/23 10:30 08/01/23 10:00 08/01/23 11:05
Intake and Output
07/31/23 08/01/23 08/02/23
06:59 06:59 06:59
Intake Total 672.5 / 740.6 2039.5 / 2156.5 531.6 / 531.6
Output Total 4150 / 4475 2432 / 2502 365 / 365
Balance -3477.5 / -3734.4 -392.5 / -345.5 166.6 / 166.6
SaO2 [CPAP/PSV] 96
SaO2 [A/C] 97
SaO2 94
Physical Exam
General: Respiratory Distress (n)
HEENT: Normocephalic and Other (ET tube in place)
Cardiovascular: S1-S2
Respiratory: Clear and Non-Labored Respirations
GI: Soft and Non Distended
Neurology: Other (Moving 4 extremities with sedation breaks.) and Other (Sedated, on mechanical ventilation.)
Skin: Warm
Labs/Micro/Reports
Lab Data
08/01/23 03:56
Microbiology
07/30/23 17:20 Blood/Venous Blood Culture - Preliminary
No Growth in 24 hours- Final report to follow
07/30/23 11:14 Endotracheal Respiratory Culture - Preliminary
Luisa albicans
07/30/23 11:14 Endotracheal Gram Stain - Preliminary
07/29/23 23:03 Urine Urine Culture - Final
Luisa albicans
07/30/23 17:20 Urine Legionella Urinary Antigen - Final
Negative for Legionella pneumophila Serogroup 1 antigen.
A negative result does not rule out the possiblity of
Legionella infection due to other serogroups or species of
Legionella. Clinical correlation is recommended.
07/30/23 17:20 Urine Streptococcus pneumoniae Antigen (M - Final
Negative for Streptococcus pneumoniae antigen.
A negative result does not exclude infection with
Streptococcus pneumoniae. Clinical correlation is
recommended.
--- NOTE | 2023-08-01 11:52 | PTCARENOTE ---
Pt's Grand-son is at the bedside. He was informed of the events of the morning and weaning trial that lasted 30 minutes. He is aware she was restless in the bed, mouthing words. He inquired about how to gauge her progress and the process if the
goals of care should change towards comfort rather than cure/recovery. He is aware that should her condition worsen we would notify him and goals of care can be pivoted towards comfort. He will give it a week (Monday) to see how she progresses.
Supportive care provided. Dr. Penaloza notified of [facility] conversation.
[2023-08-01 11:58] LABS: B.E. 1.2 mmol/L; HCO3 24.9 mmol/L (21-28); O2 Saturation % 97.9 % (94-98); PCO2 35 mmHg (32-35); PO2 84 mmHg (83-108); pH 7.46 (7.35-7.45)
--- NOTE | 2023-08-01 12:04 | PN.DE.MGMTRT ---
Insulin Management
- -
08/01/2023 Diabetes Management Consult
Patient admitted 07/28 from [facility] with difficult course. Hypoxic respiratory failure, cardiac arrest cardiogenic shock. PMH severe CAD, HTN, HLD, , CHF, A-fib. A1C on admission 6.3, cr 1.4, eGFR 37.10.
Currently she is intubated on ventilator, history is obtained from chart and patients nurse.
Since admission glucose has trended up to > 200. She is currently on tube feeds @ 45 per hour. Glycemic protocol has just been started. Will continue glycemic protocol and evaluate tomorrow for possible transition.
I spoke with patients nurse regarding diabetes care.
Diabetes History
- -
Pre-Admission Diabetes Regimen
07/31/23 08/01/23
14:28 03:56
Creatinine 1.4 H 1.4 H
Lab Results
Hemoglobin A1c 6.3 % (4.0-5.6) H 07/30/23 04:34
Insulin Pump Settings
IP Diabetes Regimen
07/31/23 07/31/23 07/31/23
11:54 14:28 17:55
Glucose 141 H
POC Glucose 187 H 147 H
07/31/23 08/01/23 08/01/23
23:52 03:56 05:47
Glucose 198 H
POC Glucose 217 H 234 H
08/01/23
10:45
Glucose
POC Glucose 204 H
Patient Education
[2023-08-01 12:20] LABS: Glucose - Point of Care 166 mg/dl (70-99)
--- NOTE | 2023-08-01 13:10 | CM ---
CM following re: discharge planning.
Discussed in Rounds, reviewed pt's chart, met with pt and pt's grandson at bedside. Pt is In-Hospital Cardiac Arrest with bradycardia, remains intubated, continue supportive care.
Per grandson, he lives with the pt in a 2SH, 5 steps to enter, has 1st floor set up, has one living daughter who is not involved in pt's live. Per grandson, pt's another daughter, his mother, . Emotional support offered and provided. Pt's
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
D/c plan: uncertain at this time and will depend on pt's progress.
CM will follow with discharge plan updates as hospitalization progresses
[2023-08-01 13:13] LABS: Glucose - Point of Care 176 mg/dl (70-99)
--- NOTE | 2023-08-01 13:42 | W.PN.CD ---
Addendum entered and electronically signed by Thad Riley MD 08/01/23 15:25:
Patient evaluated in collaboration with [facility]; agree with below.
-Patient in atrial fibrillation, but no pauses; remains critically ill.
-Temporary wire removal today.
-Continue supportive care; patient is now DNR.
-Prognosis appears to be poor.
Original Note:
Today's Communication / Plan
-
D/C TPM
SBT per vegetable buncher
Code status change noted (now DNR)
Impression / Plan
-
Impression/Plan: 82 y/o female with NIDDM, AF on apixaban, HTN, HLD, and severe CAD admitted with acute on chronic HFpEF and CIRO, found to be newly anemic and requiring transfusion, subsequently developing worsening hypoxic respiratory failure and
sinus/bradycardic arrest and ventilator dependent respiratory failure.
#Hypoxic respiratory failure/PNA
-Multifactorial, related to acute on chronic HFpEF, COPD, PNA.
-ABG has improved. pH 7.46, pCO2 35, pO2 84.
-Failed SBT today.
-Treatment of HFpEF as below.
-Serial ABGs.
-UA & resp culture with Luisa albicans
#HFrEF, acute on chronic
-LVEF 30-35%
-Cardiogenic shock at cath (PCWP > 24, CI < 2.2).
-Norepinephrine/dobutamine for chemical support and inotropy. CI now consistently > 2.4.
-Bumetanide 1 mg IV daily
-She is not a candidate for MCS given her PAD.
-Renal function steady with diuresis
-Down titrate inotropes/pressors as CI/MAP will allow.
-I suspect she has never been fully diuresed during previous hospitalizations.
-Maintain K > 4, Mg > 2, Ca > 8 and PO4 > 2.5.
#CAD
-Chronic, severe.
-Coronary angiography unchanged from 02/2023.
-Any intervention would be a highly complex and high risk procedure. If she fails to improve, we will revisit this option. She is not a candidate for CABG and declined this in the past.
-Troponin peaked on arrival (21) and fell. D/C trend. She likely peaked at [facility] (3000 on their scale).
#CIRO
-New diagnosis. Normal BUN/Cr at the time of cath in February.
-I suspect cardiorenal syndrome.
-Renal/bladder US unremarkable. She will need a Renal US when extubated.
#Sinus/Bradycardic arrest/PAF
-Confirmed by Dr. Maria.
-Could be related to pulmonary/hypoxic respiratory failure vs. underlying conduction failure.
-TPM placed, D/C today
-Could this have all been from respiratory failure rather than a true conduction issue?
#PAF
-Lapsed into AF with moderate RVR
-No role for rate control at this time.
-CHADS2-Vasc = 7 (CHF, HTN, Age x2, DM, Vascular Disease, Female Gender).
-Anticoagulation on hold due to anemia.
#Anemia
-New diagnosis.
-Per notes, H/H has been drifting over several months.
-FOBT pending.
-B12/Folate normal.
-Peripheral smear does not show schistocytes. Reticulocyte count is high - this effectively r/o hemolytic anemia or marrow failure.
-Fe/Fe% are low with a normal TIBC and Ferritin. There is clearly a component of Fe deficiency and AOCD. Ferritin is > 100, but should be much higher as an acute phase reactant.
-Thiamine pending.
-PO FeSO4.
-Repeat UA continues to show 3+ hematuria, less evidence of infection.
-Renal/bladder US unremarkable.
-Transfuse for Hbg < 7/Hct < 21.
#Mild aortic stenosis, peak/mean 24/12mmHg
#Moderate mitral regurgitation, goal euvolemia
#NIDDM
#HTN
#HLD
Subjective/Interval History:
Patient remains intubated/sedated.
Pulm/CC consulted.
DATA:
CXR, 07/29/2023:
IMPRESSION:
1. SEVERE ACUTE ALVEOLAR and INTERSTITIAL CARDIOGENIC PULMONARY EDEMA.
2. Small right pleural effusion.
3. Mild cardiomegaly.
4. Cardiac pacemaker wire projecting over the right ventricle.
5. Pulmonary arterial catheter in place with the tip in the right lower lobe pulmonary artery.
6. Endotracheal tube in place.
Cardiac Catheterization/TPM placement, 07/29/2023:
CONCLUSIONS:
1. Right dominant circulation with a densely calcified 90% subtotal lesion in the ostium of the RCA, tandem, densely calcified 70% 80% lesions in the crux of the RCA, a 30-40% distal tapering of a densely calcified left main coronary artery, a 50
to 60% lesion in the mid LAD and a densely calcified, 90% lesion in the ostium of the left circumflex. CHELO-3 flow is preserved in all vessels. Coronary anatomy is unchanged from prior cardiac catheterization of 02/21/2023.
2. Severely elevated filling pressures (LVEDP = 25 mmHg, PCWP = 27 mmHg at 75.8 kg).
3. Severely depressed cardiac function (cardiac index 1.88 L/min/m� on norepinephrine 10 mcg/kg/min) consistent with cardiogenic shock.
4. Bradycardic/sinus arrest, now status post successful placement of a temporary pacemaker.
Physical Exam
Vital Signs/Labs
Vital Signs
Temp Pulse Resp BP Pulse Ox
99 F 97 16 83/60 98
08/01/23 11:05 08/01/23 12:00 08/01/23 12:00 08/01/23 12:00 08/01/23 12:00
07/31/23 08/01/23 08/02/23
06:59 06:59 06:59
Actual Weight 73.1 kg
08/01/23 03:56
PT 21.0 Sec (11.4-14.6) H 07/30/23 04:34
INR 1.83 07/30/23 04:34
APTT 56.8 Sec (23.4-35.0) H 07/29/23 18:02
Magnesium 2.5 mg/dl (1.6-2.3) H 08/01/23 03:56
Triglycerides 101 mg/dl (10-149) 08/01/23 03:56
07/31/23
04:11
Hgd-E-Aupdnrfdynd Pept 05650
LAB Results
07/29/23 07/29/23 07/30/23
17:52 23:04 04:34
Troponin I 21.000 H* 15.900 H* 12.700 H*
07/30/23 07/30/23
13:00 13:51
Troponin I Cancelled 11.700 H*
Physical Exam
Constitutional: No acute distress and Comfortable
EENT: Anicteric and Moist mucous membranes
Cardiovascular: Rhythm/rate is irregular and S1S2 is normal
Respiratory: Lungs clear to auscul. and Other (mechanical ventilation)
GI: Soft, Distention absent, Flat and Normal bowel sounds
Neuro/Psych: Other (sedated)
Other: Skin (warm and dry) and Cardiac Device Site (right groin TPM stable)
Data Reviewed
-
Date of Service: August 01, 2023
Labs: Labs Reviewed by me
Old Records: Reviewed
--- NOTE | 2023-08-01 13:47 | W.PN.HOSP.TC ---
Today's Communication/Plan
-
Continue IV diuretics per cardiology
Continue weaning of pressors as possible
Maintain antibiotics
Vent weaning per ticketing agent
Assessment / Plan
Assessment / Plan
TTE Left ventricle is mildly dilated.
Severely reduced left ventricular systolic function. Inferolateral, anterolateral and inferior wall akinesis. Left ventricular ejection fraction is 30-35%.
Severely dilated left atrium. Moderate mitral regurgitation. Mild aortic stenosis, mean gradient 12 mmHg. No prior study available for comparison.
CXR 07/30
1. Bilateral alveolar pulmonary edema with slight improvement compared to the chest radiograph from 07/30/2023.
2. Support tubes and lines, as detailed above.

1. In hospital Cardiorespiratory arrest with bradycardia
Vent dependent resp failure
Pneumonia
-Patient with sinus bradycardia cardiac arrest
-Patient was requiring temporary pacing for bradycardia.
-Cardio following and help appreciated.
-Patient was intubated during cardiac arrest. Vent weaning per ticketing agent.
-Covered with cefepime/Diflucan. Resp culture growing Luisa only.
-Legionella/streptococcal negative. COVID pending.
2. Cardiogenic Shock
-Requiring vasopressors post cardiac arrest likely due to suppressed cardiac function
-Potential differential of ongoing sepsis also playing a role
-Not a candidate of MCS with peripheral vascular disease
-Being treated for underlying issues
-Continue pressors norepinephrine and dobutamine drip as needed
3. Acute on chronic diastolic congestive heart failure:
-Weight slowly downtrending, 73 kg today.
-Monitor electrolytes and renal function
-Monitor ins and outs
-Cardiology on board
-Bumex drip d/roscoe. on IV daily bumex.
4. Elevated troponin with Type II [place]
-Left heart catheterization showing known severe CAD. Not amenable to bypass.
-Any PCI option remains high risk procedure and cardiac will revisit if not improved medically
-Troponin of 21, trending down.
5. Acute kidney injury
-Presumed component of cardiorenal syndrome
-UA showing minimal RBC 7-10, few bacteria. No proteinuria.
-renal function trending down, cr 1.4 today, max 2.1 at admit.
-eventual renal bladder US
6. Paroxysmal atrial fibrillation:
-Anticoagulation on hold
-No rate control especially in the setting of bradycardia
7.Presumed Iron def Anemia
-Microcytic anemia with ferritin of 108 (acute phase reactant) with Iron sat 8%
-check stool for occult blood
-High Juan Francisco-vasc score and will need to be back on AC eventually
8. Diabetes mellitus type 2:
-Insulin sliding scale
-Monitor blood sugar and adjust medications accordingly
9. Hypokalemia
-on Kcl liquid through tube
-recheck in afternoon
10. Essential Hypertension:
-Hold antihypertensive for now due to shock
11. Hyperlipidemia:
- Hold statins for now
12. Hyponatremia -resolved
DVT prophylaxis: SCDs
CODE STATUS: Full code
Total critical care time 36 mins . Total critical care time documented does not include time spent on separately billed procedures or the services of residents, students, nurses or physician assistants. I personally saw and examined the patient. I
have reviewed all diagnostic interpretations and treatment plans as written. I was present for the collazo portions of any procedures performed and the inclusive time noted in any critical care statement. Critical care time includes patient management
by me, time spent at the patients bedside, time to review lab and imaging results, discussing patient care, documentation in the medical record, and time spent with the family or caregiver.
Anticipated Discharge: > 48 hours
Subjective/Interval History
-
Date of Service: August 01, 2023
seen and examined
no reported acute events overnight
remains intubated on MV
on chris dose of vasopressors
afebrile overnight
Objective Data
-
Labs:
Laboratory Results
08/01/23 08/01/23 08/01/23
03:56 11:43 15:00
WBC 13.9 H
Hgb 7.8 L
Hct 23.6 L
Plt Count 256
HCO3 24.9
Sodium 139 Pending
Potassium 3.4 L Pending
Chloride 104 Pending
Carbon Dioxide 25 Pending
BUN 52 H Pending
Creatinine 1.4 H Pending
Glucose 198 H Pending
Calcium 8.6 Pending
Vital Signs:
Vital Signs
Temp Pulse Resp BP Pulse Ox
99 F 97 16 83/60 98
08/01/23 11:05 08/01/23 12:00 08/01/23 12:00 08/01/23 12:00 08/01/23 12:00
I&O
07/31/23 08/01/23 08/02/23
06:59 06:59 06:59
Intake Total 672.5 / 740.6 2039.5 / 2156.5 758.0 / 758.0
Output Total 4150 / 4475 2432 / 2502 475 / 475
Balance -3477.5 / -3734.4 -392.5 / -345.5 283.0 / 283.0
Review of Systems
-
Unable to obtain full review of systems at this time due to: Patient Intubation
Physical Exam
-
General: No Apparent Distress
HEENT: Other (Intubated on ventilator)
Respiratory: Clear to Auscultation
Cardiac: Regular Rhythm and S1/S2; Negative Murmur or Rub
GI: Soft, Nontender and Nondistended
Musculoskeletal: No Edema
Neuro: Sedated; Negative Awake
[2023-08-01 14:14] LABS: Glucose - Point of Care 160 mg/dl (70-99)
--- NOTE | 2023-08-01 14:14 | PTCARENOTE ---
TT'd Macey VALLE regarding left femoral TVP. She was notified that pt is now a DNR and would like to get the femoral lines removed and have a PICC line placed. Plan is to removed TVP.
[2023-08-01 15:18] LABS: Glucose - Point of Care 173 mg/dl (70-99)
--- NOTE | 2023-08-01 15:49 | PTCARENOTE ---
Addendum entered by Jerrica Bonilla RN 08/01/23 16:00:
Correction: Hemostasis obtained at 1550.
Original Note:
Temp wires removed by Dr Laboy at 1516. Left groin arterial and venous lines out and hemostasis obtained at 1650. Left groin sites CDI. No hematomas, pox pn left foot 96 % throughout hold. Left foot warm and pink throughout. Pt pedal faint.
[2023-08-01 15:57] LABS: Blood Urea Nitrogen 56 mg/dl (7-17); Calcium 8.2 mg/dl (8.4-10.2); Carbon Dioxide 27 mmol/L (22-30); Chloride 104 mmol/L (98-107); Estimated Creatinine Clearance 25 ml/min; Glucose 148 mg/dl (70-99); Potassium 3.5 mmol/L (3.5-5.1); Sodium 139 mmol/L (135-145); eGFR 34.15
--- NOTE | 2023-08-01 16:56 | PTCARENOTE ---
S/P left femoral AV sheaths removed along with TVP. Pt to lay flat for three hours.TF will remain in hold.
[2023-08-01 17:16] LABS: Glucose - Point of Care 136 mg/dl (70-99)
[2023-08-01] MEDS: LEVOPHED 250 IV (17:21)
[2023-08-01 19:07] LABS: Glucose - Point of Care 128 mg/dl (70-99)
[2023-08-01] MEDS: KCL 100 IV (19:56)
--- NOTE | 2023-08-01 20:00 | PTCARENOTE ---
Assumed care of patient at change of shift. Patient resting comfortably in bed, intubated and sedated. Pt assessed, see worklist. Pt on multiple gtts, levophed, propofol, fentanyl, and insulin. Pts vitals obtained. Pt laying flat but increased to 30
degrees per protocol, tube feeds restarted.
Will continue to monitor.
[2023-08-01 21:13] LABS: Glucose - Point of Care 103 mg/dl (70-99)
[2023-08-01 23:06] LABS: Glucose - Point of Care 119 mg/dl (70-99)
[2023-08-02] VITALS (70 sets, daily range): BP systolic 78–115; BP diastolic 49–80; BMI 31.6
[2023-08-02 01:17] LABS: Glucose - Point of Care 156 mg/dl (70-99)
[2023-08-02] MEDS: SUBLIMAZE 100 IV (01:40)
[2023-08-02 03:14] LABS: Glucose - Point of Care 169 mg/dl (70-99)
[2023-08-02 03:52] LABS: Hemoglobin 7.5 g/dL (12.0-16.0); Mean Corp Hgb Conc. 32.6 g/dL (33.0-37.0); Mean Corpuscular Hgb 25.4 pg (27.0-31.0); Platelet Count 256 10^3/uL (130-400); Red Blood Cell Count 2.95 10^6/uL (4.20-5.40); Red Cell Dist. Width 18.9 % (11.5-14.5); White Blood Cell Count 12.7 10^3/uL (4.8-10.8)
[2023-08-02] MEDS: LEVOPHED 250 IV ×2 (04:12→17:45)
[2023-08-02 04:14] LABS: Blood Urea Nitrogen 60 mg/dl (7-17); Calcium 8.6 mg/dl (8.4-10.2); Carbon Dioxide 26 mmol/L (22-30); Chloride 104 mmol/L (98-107); Estimated Creatinine Clearance 23 ml/min; Glucose 152 mg/dl (70-99); Potassium 3.9 mmol/L (3.5-5.1); Sodium 138 mmol/L (135-145); eGFR 31.61
[2023-08-02 05:07] LABS: Glucose - Point of Care 159 mg/dl (70-99)
[2023-08-02] MEDS: DIPRIVAN 100 IV ×2 (06:14→16:20)
[2023-08-02 07:13] LABS: Glucose - Point of Care 180 mg/dl (70-99)
--- NOTE | 2023-08-02 07:37 | PN.DE.MGMTRT ---
Insulin Management
- -
08/02/2023 Diabetes Management F/U:
Patient admitted 07/28 from [facility] with difficult course. Hypoxic respiratory failure, cardiac arrest cardiogenic shock. PMH severe CAD, HTN, HLD, , CHF, A-fib. A1C on admission 6.3, cr 1.4, eGFR 37.10.
Pt remains intubated and unable to participate in interview. Information obtained from chart review and patients nurse.
Pt was started on tube feeds yesterday with subsequent Hyperglycemia and was initiated on the Glycemic protocol.
Glucose is stable w/o hypoglycemic episodes, range of 119 to 180, requiring 1.2 to 3units on insulin/hr
Will continue glycemic protocol for now and re-evaluate later today for possible transition off drip, ideally if there is a change in condition.
Diabetes History
- -
Type of Diabetes: 2
Pre-Admission Diabetes Regimen
08/01/23 08/02/23
15:32 03:43
Creatinine 1.5 H 1.6 H
Lab Results
Hemoglobin A1c 6.3 % (4.0-5.6) H 07/30/23 04:34
Insulin Pump Settings
IP Diabetes Regimen
08/01/23 08/01/23 08/01/23
10:45 12:09 13:02
Glucose
POC Glucose 204 H 166 H 176 H
08/01/23 08/01/23 08/01/23
14:02 15:07 15:32
Glucose 148 H
POC Glucose 160 H 173 H
08/01/23 08/01/23 08/01/23
17:04 18:56 21:00
Glucose
POC Glucose 136 H 128 H 103 H
08/01/23 08/02/23 08/02/23
22:54 01:04 03:01
Glucose
POC Glucose 119 H 156 H 169 H
08/02/23 08/02/23 08/02/23
03:43 04:54 07:01
Glucose 152 H
POC Glucose 159 H 180 H
Patient Education
--- NOTE | 2023-08-02 07:46 | W.PN.CD ---
Today's Communication / Plan
-
Reorder FOBT.
Check cortisol.
Check influenza.
Repeat CXR.
Trend CVP.
SBT/CPAP per Pulm/CC.
Agree with fluconazole.
Impression / Plan
-
Impression/Plan: 82 y/o female with NIDDM, AF on apixaban, HTN, HLD, and severe CAD admitted with acute on chronic HFpEF and CIRO, found to be newly anemic and requiring transfusion, subsequently developing worsening hypoxic respiratory failure and
sinus/bradycardic arrest and ventilator dependent respiratory failure.
#Hypoxic respiratory failure/PNA
-Multifactorial, related to acute on chronic HFpEF, COPD, PNA.
-Legionella/Pneumococcal/COVID negative.
-Failed SBT today.
-Serial ABGs.
-UA & resp culture with Luisa albicans. Fluconazole started.
-Remains on norepinephrine. Check cortisol.
-Repeat CXR.
-Check influenza.
#HFrEF, acute on chronic
-LVEF 30-35%
-Cardiogenic shock at cath (PCWP > 24, CI < 2.2).
-Bumetanide 1 mg IV daily.
-She is not a candidate for MCS given her PAD.
-Renal function steady with diuresis.
-Trend CVP as a marker for volume.
-Maintain K > 4, Mg > 2, Ca > 8 and PO4 > 2.5.
#CAD
-Chronic, severe.
-Coronary angiography unchanged from 02/2023.
-Any intervention would be a highly complex and high risk procedure. If she fails to improve, we will revisit this option. She is not a candidate for CABG and declined this in the past.
-Troponin peaked on arrival (21) and fell. D/C trend. She likely peaked at [facility] (3000 on their scale).
#CIRO
-New diagnosis. Normal BUN/Cr at the time of cath in February.
-I suspect cardiorenal syndrome.
-Bladder US unremarkable. She will need a Renal US when extubated.
-BUN is out of proportion to creatinine.
#Sinus/Bradycardic arrest/PAF
-Confirmed by Dr. Maria.
-Could be related to pulmonary/hypoxic respiratory failure vs. underlying conduction failure.
-TPM placed, D/C'ed yesterday.
-Could this have all been from respiratory failure rather than a true conduction issue?
#PAF
-Lapsed into AF with moderate RVR
-No role for rate control at this time.
-CHADS2-Vasc = 7 (CHF, HTN, Age x2, DM, Vascular Disease, Female Gender).
-Anticoagulation on hold due to anemia.
#Anemia
-New diagnosis.
-Per notes, H/H has been drifting over several months.
-B12/Folate normal.
-Peripheral smear does not show schistocytes. Reticulocyte count is high - this effectively r/o hemolytic anemia or marrow failure.
-Fe/Fe% are low with a normal TIBC and Ferritin. There is clearly a component of Fe deficiency and AOCD. Ferritin is > 100, but should be much higher as an acute phase reactant.
-Thiamine pending.
-PO FeSO4.
-Repeat UA continues to show 3+ hematuria, less evidence of infection.
-Bladder US unremarkable.
-Transfuse for Hbg < 7/Hct < 21.
-BUN is out of proportion to creatinine, raising the possibility of GI blood loss. Reorder FOBT.
#Mild aortic stenosis, peak/mean 24/12mmHg
#Moderate mitral regurgitation, goal euvolemia
#NIDDM
#HTN
#HLD
Critical Care Time = 34 minutes.
Subjective/Interval History:
Failed SBT/CPAP yesterday.
Weight stable.
Afebrile.
WBC down to 12.7.
HR < 100.
Code status changed to DNR.
Fluconazole added for C. albicans (urine, respiratory).
Hbg 7.5 (7.8 <-- 8.2 <-- 7.9).
TPM removed - no evidence of bradycardia.
DATA:
CXR, 07/29/2023:
IMPRESSION:
1. SEVERE ACUTE ALVEOLAR and INTERSTITIAL CARDIOGENIC PULMONARY EDEMA.
2. Small right pleural effusion.
3. Mild cardiomegaly.
4. Cardiac pacemaker wire projecting over the right ventricle.
5. Pulmonary arterial catheter in place with the tip in the right lower lobe pulmonary artery.
6. Endotracheal tube in place.
Cardiac Catheterization/TPM placement, 07/29/2023:
CONCLUSIONS:
1. Right dominant circulation with a densely calcified 90% subtotal lesion in the ostium of the RCA, tandem, densely calcified 70% 80% lesions in the crux of the RCA, a 30-40% distal tapering of a densely calcified left main coronary artery, a 50
to 60% lesion in the mid LAD and a densely calcified, 90% lesion in the ostium of the left circumflex. CHELO-3 flow is preserved in all vessels. Coronary anatomy is unchanged from prior cardiac catheterization of 02/21/2023.
2. Severely elevated filling pressures (LVEDP = 25 mmHg, PCWP = 27 mmHg at 75.8 kg).
3. Severely depressed cardiac function (cardiac index 1.88 L/min/m� on norepinephrine 10 mcg/kg/min) consistent with cardiogenic shock.
4. Bradycardic/sinus arrest, now status post successful placement of a temporary pacemaker.
Physical Exam
Vital Signs/Labs
Vital Signs
Temp Pulse Resp BP Pulse Ox
37.1 C 93 16 100/67 98
08/02/23 07:40 08/02/23 07:00 08/02/23 07:00 08/02/23 07:00 08/02/23 07:00
07/31/23 08/01/23 08/02/23
11:59 11:59 11:59
Actual Weight 73.1 kg 73.3 kg
08/02/23 03:43
08/02/23 03:43
PT 21.0 Sec (11.4-14.6) H 07/30/23 04:34
INR 1.83 07/30/23 04:34
APTT 56.8 Sec (23.4-35.0) H 07/29/23 18:02
Magnesium 2.5 mg/dl (1.6-2.3) H 08/01/23 03:56
Triglycerides 101 mg/dl (10-149) 08/01/23 03:56
07/31/23
04:11
[id number] Pept [id number]
LAB Results
07/30/23 07/30/23
13:00 13:51
Troponin I Cancelled 11.700 H*
Physical Exam
Constitutional: No acute distress and Comfortable
EENT: Anicteric, Moist mucous membranes and Other (ET tube in place.)
Cardiovascular: Pedal edema is absent, JVD pressure is normal, Rhythm/rate is irregular, S1S2 is normal and Murmur/rub/gallop absent
Respiratory: Respiratory effort normal, Wheeze Absent, Rhonchi Absent and Crackles Present (LLL.)
GI: Soft, Distention absent, Flat, Non tender and Normal bowel sounds
Neuro/Psych: Other (Intubated, sedated.)
Data Reviewed
-
Date of Service: August 02, 2023
Medical Decision Making: Reviewed Test Results, Test Interpretation and Review of Case with other Provider
EKG: Tracing Personally Visualized and interpreted and Report Reviewed by me
Echo: Tracing Personally Visualized and interpreted and Report Reviewed by me
X-Ray/CT/US/MRI/NUC/PET: Image Personally Visualized and interpreted and Report Reviewed by me
Medical Tests (PFT, Pathology etc): Image Personally Visualized and interpreted and Report Reviewed by me
Labs: Labs Reviewed by me and Labs Ordered by me
--- NOTE | 2023-08-02 08:05 | PTCARENOTE ---
Received pt intubated and sedated. She has bilateral soft wrist restraint on and side rails up. She was oriented to the unit and the plan of care and provided an update regarding the events of her hospitalization. She followed some simple commands.
Right IJ Cordis with 0.9nss kvo, dressing cdi. Right femoral TL CVC with Propofol, fentanyl and insulin drips as documented in worklist. Left femoral dressing CDI. Good peripheral pulses, +2 anasarca. Skin cool, and pale. Afib on monitor 90's, rare
PVC. #7ETT secured 23cm center. Oral thrush present. Oral care per protocol. Small amount of oropharyngeal secretions. Breath sounds tubular on the right with loud basilar crackles, left with crackles half way up and diminished. Scattered rhonchi.
Tolerating AC 16/500/.40/+5. +BSX4, OGT with TF @ goal. Miller catheter secured draining yellow urine with sediment. Left breast fold with resolving yeast rash. Skin no longer red. Skin barrier applied to anterior chest skin abrasion from adhesive,
and to sacrum. Knee-hi scd's intact, pitting edema present. Aspiration precautions maintained. Safe environment maintained. Pt placed on SBT, and the pt was informed of the plan to perform a weaning trial.
[2023-08-02] MEDS: BUMEX 1 MG IV ×2 (08:14→16:49)
[2023-08-02] MEDS: DESENEX/MITRAZOL/ZEASORB 1 APPLIC TOPICAL ×2 (08:14→20:15)
[2023-08-02] MEDS: FERROUS SULFATE ORAL LIQUID 300 MG TUBE ×2 (08:14→20:19)
[2023-08-02] MEDS: HEPARIN 5000 UNITS SC ×3 (08:14→23:12)
[2023-08-02] MEDS: DIFLUCAN 100 MG TUBE (08:14)
[2023-08-02] MEDS: MIRALAX 17 GRAMS TUBE (08:15)
--- NOTE | 2023-08-02 08:29 | W.PN.HOSP.TC ---
Today's Communication/Plan
-
sedation vacation
vent weaning per jd edwards
cordis/femoral CVC removal
continue abx
diuretics per cardio
Assessment / Plan
Assessment / Plan
TTE Left ventricle is mildly dilated.
Severely reduced left ventricular systolic function. Inferolateral, anterolateral and inferior wall akinesis. Left ventricular ejection fraction is 30-35%.
Severely dilated left atrium. Moderate mitral regurgitation. Mild aortic stenosis, mean gradient 12 mmHg. No prior study available for comparison.
CXR 07/30
1. Bilateral alveolar pulmonary edema with slight improvement compared to the chest radiograph from 07/30/2023.
2. Support tubes and lines, as detailed above.

1. In hospital Cardiorespiratory arrest with bradycardia
Vent dependent resp failure
Pneumonia
-Patient with sinus bradycardia cardiac arrest
-Patient was requiring temporary pacing for bradycardia.
-Cardio following and help appreciated.
-Patient was intubated during cardiac arrest. Vent weaning per jd edwards.
-Covered with cefepime/Diflucan. Resp culture growing Luisa only.
-Legionella/streptococcal negative. COVID pending.
2. Cardiogenic Shock
-Requiring vasopressors post cardiac arrest likely due to suppressed cardiac function
-Potential differential of ongoing sepsis also playing a role
-Not a candidate of MCS with peripheral vascular disease
-Being treated for underlying issues
-Continue pressors norepinephrine and dobutamine drip as needed
3. Acute on chronic diastolic congestive heart failure:
-Weight slowly downtrending, 73 kg today.
-Monitor electrolytes and renal function
-Monitor ins and outs
-Cardiology on board
-Bumex drip d/roscoe. on IV daily bumex.
4. Elevated troponin with Type II NV
-Left heart catheterization showing known severe CAD. Not amenable to bypass.
-Any PCI option remains high risk procedure and cardiac will revisit if not improved medically
-Troponin of 21, trending down.
5. Acute kidney injury
-Presumed component of cardiorenal syndrome
-UA showing minimal RBC 7-10, few bacteria. No proteinuria.
-renal function trending down, max 2.1 at admit. cr 1.6 today.
-eventual renal bladder US
6. Paroxysmal atrial fibrillation:
-Anticoagulation on hold
-No rate control especially in the setting of bradycardia
7.Presumed Iron def Anemia
-Microcytic anemia with ferritin of 108 (acute phase reactant) with Iron sat 8%
-check stool for occult blood
-High Juan Francisco-vasc score and will need to be back on AC eventually
8. Diabetes mellitus type 2:
-Insulin sliding scale
-Monitor blood sugar and adjust medications accordingly
9. Hypokalemia
-on Kcl liquid through tube
-recheck in afternoon
10. Essential Hypertension:
-Hold antihypertensive for now due to shock
11. Hyperlipidemia:
- Hold statins for now
12. Hyponatremia -resolved
DVT prophylaxis: SCDs
CODE STATUS: Full code
Total critical care time 37 mins . Total critical care time documented does not include time spent on separately billed procedures or the services of residents, students, nurses or physician assistants. I personally saw and examined the patient. I
have reviewed all diagnostic interpretations and treatment plans as written. I was present for the collazo portions of any procedures performed and the inclusive time noted in any critical care statement. Critical care time includes patient management
by me, time spent at the patients bedside, time to review lab and imaging results, discussing patient care, documentation in the medical record, and time spent with the family or caregiver.
Anticipated Discharge: > 48 hours
Subjective/Interval History
-
Date of Service: August 02, 2023
remains intubated on ventilator
on levophed
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
afebrile in night
Objective Data
-
Labs:
Laboratory Results
08/02/23
03:43
WBC 12.7 H
Hgb 7.5 L
Hct 23.0 L
Plt Count 256
Sodium 138
Potassium 3.9
Chloride 104
Carbon Dioxide 26
BUN 60 H
Creatinine 1.6 H
Glucose 152 H
Calcium 8.6
Vital Signs:
Vital Signs
Temp Pulse Resp BP Pulse Ox
98.8 F 93 16 100/67 97
08/02/23 07:40 08/02/23 07:00 08/02/23 07:00 08/02/23 07:00 08/02/23 07:45
I&O
08/01/23 08/02/23 08/03/23
06:59 06:59 06:59
Intake Total 2039.5 / 2156.5 2458.4 / 2458.4
Output Total 2432 / 2502 1325 / 1325
Balance -392.5 / -345.5 1133.4 / 1133.4
Review of Systems
-
Unable to obtain full review of systems at this time due to: Patient Intubation
Physical Exam
-
General: No Apparent Distress
HEENT: Other (Intubated on ventilator)
Respiratory: Clear to Auscultation
Cardiac: Regular Rhythm and S1/S2; Negative Murmur or Rub
GI: Soft, Nontender and Nondistended
Genito-urinary: Miller (clear urine)
Musculoskeletal: No Edema
Neuro: Awake (waking up off sedation)
Psych: Calm
[2023-08-02 09:08] LABS: Glucose - Point of Care 155 mg/dl (70-99)
[2023-08-02 10:02] LABS: Cortisol, Random 19.2 ug/dl
--- NOTE | 2023-08-02 10:23 | PTCARENOTE ---
plan is for PICC placement inthe right U/E.
[2023-08-02] MEDS: SUBLIMAZE 50 MCG IV ×5 (10:29→20:43)
[2023-08-02] MEDS: MAXIPIME 1000 MG IV ×2 (10:39→21:03)
[2023-08-02] MEDS: STERILE WATER FOR INJECTION 10 ML IV ×2 (10:39→21:03)
[2023-08-02 11:12] LABS: Glucose - Point of Care 127 mg/dl (70-99)
[2023-08-02 12:09] LABS: Glucose - Point of Care 152 mg/dl (70-99)
--- NOTE | 2023-08-02 12:15 | W.PN.INTV ---
Today's Communication / Plan
Recommendations
Wean off vasopressors
Repeat BMP
Repeat H&H
Failed spontaneous breathing trial
Continue antibiotics
Diuretics as able
Continue mechanical ventilation without change
Minimize sedation
Assessment
-
Assessment: 82-year-old female with a past medical history of CAD, DM type II, atrial fibrillation on Eliquis, aortic stenosis and HFpEF who was admitted to outside hospital due to weakness and shortness of breath. Patient also syncopized while at
home which was witnessed by her grandson. Patient was reportedly recently admitted and discharged from [facility] with acute on chronic HFpEF with pneumonia, treated with antibiotics but had been continued to experience shortness of breath since
discharge. The patient went to outside hospital and given Lasix in the ER which caused hypotension. She developed CIRO with anemia and coagulopathy and required vasopressors with Levophed. 1 unit PRBCs was given as well as antibiotics for possible
pneumonia. Patient then developed bradycardia and cardiac arrest requiring CPR --> ROSC obtained. Echo showed inferolateral wall motion abnormalities and transfer to [facility] was arranged for consideration of PPM. When the transfer
medical personnel arrived to outside hospital, patient appeared to be in worsening respiratory distress and was intubated prior to transfer. Once patient arrived here she was brought immediately to the Medical Care Manager. There was a densely calcified 90%
lesion in the ostium of the left circumflex as well as a 90% subtotal lesion in the ostium of the RCA. Also densely calcified 70-80% lesions in the crux of the RCA. Apparently the coronary anatomy is unchanged from prior cardiac catheterization
from February 2023. There was however severely elevated filling pressures with LVEDP 25 mmHg and PCWP of 27 mmHg. Also cardiac index was low at 1.88 while on Levophed consistent with cardiogenic shock. Medical management was decided given the
unchanged coronary anatomy compared to 02/2023, and dobutamine was started in the Medical Care Manager as well as Bumex drip. Temporary pacemaker also placed. Labs showed leukocytosis to 12.3, anemia to 9, initially was hypercapnic with pH of 7.21, pCO2 55,
hyponatremic to 132, CIRO with creatinine 2.1, elevated troponin of 21 with trace leukocyte esterase on urinalysis with moderate urine bacteria. Initial glucose via POCT was 223. Urine culture and respiratory culture were collected. CXR showed
severe pulmonary edema with a retrocardiac opacity. Unable to rule out concomitant pneumonia. Antibiotics were continued as well as dobutamine, Levophed, Bumex and patient was transferred to the CVICU for further care. Critical care service now
consulted for additional management/recommendations.
Chronic conditions [employer]: CAD, CHF, COPD, HTN, A-fib on Eliquis, hypercholesterolemia and NIDDM
Impression:
#In-Hospital Cardiac Arrest with bradycardia just prior to arrest now s/p TVP --> suspect she arrested due to severe hypoxia from both acute pulmonary edema (?TACO vs acute HFpEF) + /- pneumonia
#Acute respiratory failure with hypoxia and hypercapnia on mechanical ventilation
#Pneumonia - she certainly aspirated during her cardiac arrest; it is unclear if she had a PNA prior to her recent hospitalization at [facility]
#Shock - cardiogenic and suspected septic as well
#Abnormal UA with suspected UTI
#Leukocytosis with left shift suspicious for sepsis given bilateral opacities on CXR concerning for suspected pneumonia
#Acute kidney injury
#Anemia
#A-fib on Eliquis
#DM type II
Plan:
-
Remains critically ill: On mechanical ventilation. On low-dose vasopressors.
-
Mechanical ventilation reviewed: Pulmonary mechanics are better.
No significant secretions
FiO2 at 40%.
ABG 08/01/2023: 7.46/35/84. Adequate oxygenation on ventilation.
Did not tolerate spontaneous breathing trial 08/02/2023: Increased work of breathing.
Chest x-ray 08/02/2023: Persistent increased interstitial markings.
Continue antibiotics and diuresis as able.
Continue with daily sedation breaks
Spontaneous breathing trial as able
-
Sedation with propofol and fentanyl. Will attempt to minimize.
Target RASS (-1 to 0)
Sedation break per protocol.
-
Fever curve improved/persistent leukocytosis noted
Chest x-ray with multifocal infiltrates. Cannot rule out pneumonia.
-Legionella, Streptococcus antibodies negative.
Respiratory culture with Luisa albicans
Urine culture with Luisa albicans
Blood culture negative
MRSA screen pending
Continue broad-spectrum antibiotics for now-cefepime, will complete total of 5 to 7 days.
Repeat procalcitonin. If completely cleared then we will consider a shorter course.
COVID-negative
Suspect respiratory Luisa is contaminant
Start 7 days of enteral fluconazole. Has thrush/intertrigo and urine culture with Luisa
-
Pulmonary edema component:
Prior history of severe coronary artery disease. Not a candidate for any intervention. Case discussed with cardiology.
Cardiogenic shock component: Pulmonary capillary wedge pressure greater than 24, cardiac index less than 2.2.
Cardiac index improved
So far fluid balance negative. Clinically improved from the cardiac perspective.
On IV Bumex twice a day per cardiology
Monitor renal function closely. May need to give a break as the creatinine is a slightly increased.
Echocardiogram noted
-
Shock: Septic/possibly cardiogenic component as well.
Back on low-dose Levophed. Wean off as able.
PICC line in place
Discontinue Cordis and right femoral triple-lumen catheter.
-
Echocardiogram 07/31/2023: Left ventricle ejection fraction 30-35%. Inferolateral, anterolateral and inferior wall akinesis. Severely reduced left ventricular systolic function. Severely dilated left atrium. Moderate MR. Mild aortic stenosis.
- Heart rate control with goal <110bpm
Pacer wire has been discontinued
- Replete electrolytes with K>4, Mg>2
-
Acute kidney injury: Possibly cardiorenal.
Improved.
Miller in place, follow urinary output
Ischemic injury also possible with hypotension and sepsis.
Continue hemodynamic support
Repeat BMP later.
-
Anemia: No evidence for acute bleed
- transfuse as needed to keep Hb>7, plt>20k
Follow H&H. Trending lower.
May need additional transfusion.
- Maintain euglycemia with goal BG 140-180
Insulin drip will be started 08/01/2023.
Tube feeding started-tolerating.
- prn nebulized bronchodilators
- stress ulcer ppx: PPI
- DVT ppx - HSQ
Dr. Penaloza updated grandson at the bedside 07/31/2023, 08/01/2023 long discussion regarding critical illness. DNR status has been instituted
Critical care statement: A total of 32 minutes of critical care time was provided for this patient today. This includes management of unstable vital signs, evaluation of the patient at bedside, reviewing the patient's pertinent medical records
including radiographs, microbiology, laboratory evaluations, and discussion with primary team, consultants, pharmacy, nutrition, physical therapy, case management, charge nurse, critical care nursing, and respiratory therapy.

Data:
CXR 07-30-2023:
1. SEVERE ACUTE BILATERAL ALVEOLAR CARDIOGENIC PULMONARY EDEMA which appears unchanged.
2. Mild cardiomegaly.
3. Endotracheal tube, nasogastric tube, pulmonary arterial catheter, and right ventricular cardiac pacing wire in place.
Subjective Dataa
Subjective Data
Date of Service:
Date of Service: August 02, 2023
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
Subjective:
Remains critically ill, on mechanical ventilation.
On low-dose vasopressors
Following commands slowly after sedation breaks.
Review of Systems
General: Unobtainable - Sedation
Objective Data
Data Reviewed
Vital Signs / I&O / Oxygen:
Vital Signs
Temp Pulse Resp BP Pulse Ox
98.3 F 106 17 106/66 93
08/02/23 11:15 08/02/23 11:30 08/02/23 11:30 08/02/23 11:30 08/02/23 12:10
Intake and Output
08/01/23 08/02/23 08/03/23
06:59 06:59 06:59
Intake Total 2039.5 / 2156.5 2458.4 / 2458.4 645.0 / 645.0
Output Total 2432 / 2502 1325 / 1325 725 / 725
Balance -392.5 / -345.5 1133.4 / 1133.4 -80.0 / -80.0
SaO2 [CPAP/PSV] 96
SaO2 [A/C] 94
SaO2 93
Physical Exam
General: Respiratory Distress (n)
HEENT: Normocephalic and Other (ET tube in place)
Cardiovascular: S1-S2
Respiratory: Clear and Non-Labored Respirations
GI: Soft and Non Distended
Neurology: Other (Moving 4 extremities with sedation breaks. Occasionally following commands) and Other (Sedated, on mechanical ventilation.)
Skin: Warm
Labs/Micro/Reports
Lab Data
08/02/23 03:43
08/02/23 03:43
Microbiology
07/30/23 17:20 Blood/Venous Blood Culture - Preliminary
No Growth in 48 hours- Final report to follow
07/31/23 14:28 Nose MRSA Screen - Final
No Methicillin Resistant Staphylococcus aureus isolated.
07/30/23 11:14 Endotracheal Respiratory Culture - Final
Luisa albicans
07/30/23 11:14 Endotracheal Gram Stain - Final
07/29/23 23:03 Urine Urine Culture - Final
Luisa albicans
07/30/23 17:20 Urine Legionella Urinary Antigen - Final
Negative for Legionella pneumophila Serogroup 1 antigen.
A negative result does not rule out the possiblity of
Legionella infection due to other serogroups or species of
Legionella. Clinical correlation is recommended.
07/30/23 17:20 Urine Streptococcus pneumoniae Antigen (M - Final
Negative for Streptococcus pneumoniae antigen.
A negative result does not exclude infection with
Streptococcus pneumoniae. Clinical correlation is
recommended.
[2023-08-02 12:26] LABS: Procalcitonin 1.64 ng/ml (0.0-0.25)
[2023-08-02 13:14] LABS: Glucose - Point of Care 120 mg/dl (70-99)
[2023-08-02 14:09] LABS: Glucose - Point of Care 119 mg/dl (70-99)
--- NOTE | 2023-08-02 14:21 | CM ---
CM following re: discharge planning.
Discussed in Rounds, reviewed pt's chart, met with pt. Pt's grandson Terry visits pt on a daily basis. Pt is In-Hospital Cardiac Arrest with bradycardia, remains intubated, continue supportive care.
Per grandson, he lives with the pt in a 2SH, 5 steps to enter, has 1st floor set up, has one living daughter who is not involved in pt's live. Per grandson, pt's another daughter, his mother, . Emotional support offered and provided. Pt's
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
D/c plan: uncertain at this time and will depend on pt's progress.
CM will follow with discharge plan updates as hospitalization progresses
--- NOTE | 2023-08-02 14:52 | PTCARENOTE ---
IV team at the bedside preparing for PICC placement. Fentanyl bolus administered prior for agitation.
[2023-08-02 15:15] LABS: Glucose - Point of Care 121 mg/dl (70-99)
[2023-08-02 16:13] LABS: Hematocrit 22.6 % (37.0-47.0); Hemoglobin 7.3 g/dL (12.0-16.0)
[2023-08-02 16:24] LABS: Blood Urea Nitrogen 58 mg/dl (7-17); Calcium 8.2 mg/dl (8.4-10.2); Carbon Dioxide 28 mmol/L (22-30); Chloride 103 mmol/L (98-107); Estimated Creatinine Clearance 23 ml/min; Glucose 120 mg/dl (70-99); Potassium 3.5 mmol/L (3.5-5.1); Sodium 134 mmol/L (135-145); eGFR 31.61
--- NOTE | 2023-08-02 16:40 | PTCARENOTE ---
Dr. Penaloza notified of BMP result and recent H/H. Recent CXR also visualized. Will administer 40meq KCL elixir & 1mg Bumex IV as ordered.
[2023-08-02] MEDS: KCL ELIXIR 40 MEQ TUBE (16:49)
[2023-08-02 17:13] LABS: Glucose - Point of Care 141 mg/dl (70-99)
--- NOTE | 2023-08-02 17:15 | PTCARENOTE ---
Reached out to IV team regarding PICC placement and radiology report. IV team to pull back 3cm.
[2023-08-02] MEDS: NOVOLIN R INSULIN INFUSION 100 IV (17:45)
--- NOTE | 2023-08-02 18:10 | PTCARENOTE ---
All IV drips via right upper arm DL PICC. Right IJ Cordis transduced and CVP=15. Pt given Fentanyl bolus with relief. Family member at the bedside, supportive care provided.
[2023-08-02 19:17] LABS: Glucose - Point of Care 129 mg/dl (70-99)
[2023-08-02 20:11] LABS: Glucose - Point of Care 151 mg/dl (70-99)
--- NOTE | 2023-08-02 20:11 | PTCARENOTE ---
received patient from previous shift. opens eyes and follows commands. does attempt to reach for tube while being turned. pupils 2 and sluggish. AC16/500/5/40%. a-fib on the monitor. +2 anasarca. kaye draining clear yellow urine. OG in place
osmolite at goal of 45/25. fentanyl, propofol, levo, and insulin infusing.
[2023-08-02 21:15] LABS: Glucose - Point of Care 128 mg/dl (70-99)
[2023-08-02 22:14] LABS: Glucose - Point of Care 111 mg/dl (70-99)
[2023-08-02 23:14] LABS: Glucose - Point of Care 133 mg/dl (70-99)
[2023-08-03] VITALS (68 sets, daily range): BP systolic 71–127; BP diastolic 41–102; BMI 32.3
[2023-08-03 00:13] LABS: Glucose - Point of Care 131 mg/dl (70-99)
[2023-08-03] MEDS: DIPRIVAN 100 IV ×2 (00:17→07:18)
--- NOTE | 2023-08-03 00:25 | PTCARENOTE ---
pt reassessed, no changes, prn fentanyl given x1.
[2023-08-03 02:13] LABS: Glucose - Point of Care 101 mg/dl (70-99)
[2023-08-03] MEDS: SUBLIMAZE 50 MCG IV ×6 (02:58→20:10)
[2023-08-03 03:39] LABS: Hematocrit 21.6 % (37.0-47.0); Hemoglobin 7.1 g/dL (12.0-16.0); Mean Corp Hgb Conc. 32.9 g/dL (33.0-37.0); Mean Corpuscular Hgb 25.7 pg (27.0-31.0); Mean Corpuscular Volume 78.3 fL (81.0-99.0); Mean Platelet Volume 11.7 fL (7.4-10.4); Platelet Count 223 10^3/uL (130-400); Red Blood Cell Count 2.76 10^6/uL (4.20-5.40); Red Cell Dist. Width 19.1 % (11.5-14.5)
[2023-08-03 03:52] LABS: Blood Urea Nitrogen 61 mg/dl (7-17); Calcium 8.4 mg/dl (8.4-10.2); Carbon Dioxide 26 mmol/L (22-30); Chloride 104 mmol/L (98-107); Estimated Creatinine Clearance 23 ml/min; Glucose 100 mg/dl (70-99); Potassium 3.9 mmol/L (3.5-5.1); Sodium 136 mmol/L (135-145); eGFR 31.61
[2023-08-03 04:13] LABS: Glucose - Point of Care 110 mg/dl (70-99)
[2023-08-03 06:12] LABS: Glucose - Point of Care 130 mg/dl (70-99)
[2023-08-03] MEDS: LEVOPHED 250 IV ×2 (07:17→16:01)
[2023-08-03] MEDS: BUMEX 1 MG IV (07:18)
[2023-08-03] MEDS: DIFLUCAN 100 MG TUBE (07:18)
[2023-08-03] MEDS: HEPARIN 5000 UNITS SC ×3 (07:18→23:06)
[2023-08-03] MEDS: MIRALAX 17 GRAMS TUBE (07:18)
[2023-08-03] MEDS: FERROUS SULFATE ORAL LIQUID 300 MG TUBE ×2 (07:18→20:06)
[2023-08-03] MEDS: DESENEX/MITRAZOL/ZEASORB 1 APPLIC TOPICAL ×2 (07:18→20:06)
[2023-08-03 07:38] LABS: Glucose - Point of Care 101 mg/dl (70-99)
--- NOTE | 2023-08-03 08:09 | PTCARENOTE ---
Addendum entered by Kasandra Gaming RN 08/03/23 08:11:
pt on glycemic protocol insulin gtt, see flowsheet.
Original Note:
pt received from previous rn- ett to vent- see settings as charted. on prop, fent, levo. awakens to name, able to follow some commands. pupils 2 and reactive. moves extremities. ogt with tube feeds infusing- pt tolerating. nsr on monitor. turned and
repositioned, oral and kaye care provided. right ij cordis site cdi with kvo. right picc with cvp monitoring- line zeroed. both picc lumens flush with blood return. all safety precautions in place.
--- NOTE | 2023-08-03 08:14 | PN.DE.MGMTRT ---
Insulin Management
- -
08/03/2023 Diabetes Management Follow up:
Patient admitted 07/28 from [facility] with difficult course. Hypoxic respiratory failure, cardiac arrest cardiogenic shock. PMH severe CAD, HTN, HLD, , CHF, A-fib. A1C on admission 6.3, cr 1.4, eGFR 37.10.
Pt remains intubated and unable to participate in interview. Information obtained from chart review and patients nurse.
Tube feeds continue at 45/Hr, as well as glycemic protocol insulin infusion.
Glucose is stable without hypoglycemic episodes, range of 101 to 141, requiring 1.8 to 4 units on insulin/hr
Will continue glycemic protocol for now and re-evaluate later today for possible transition off drip, ideally if there is a change in condition.
Discussed with patients nurse.
Diabetes History
- -
Type of Diabetes: 2
Pre-Admission Diabetes Regimen
08/02/23 08/03/23
15:59 03:24
Creatinine 1.6 H 1.6 H
Lab Results
Hemoglobin A1c 6.3 % (4.0-5.6) H 07/30/23 04:34
Insulin Pump Settings
IP Diabetes Regimen
08/02/23 08/02/23 08/02/23
08:57 11:01 11:58
Glucose
POC Glucose 155 H 127 H 152 H
08/02/23 08/02/23 08/02/23
13:02 13:57 15:03
Glucose
POC Glucose 120 H 119 H 121 H
08/02/23 08/02/23 08/02/23
15:59 17:01 19:05
Glucose 120 H
POC Glucose 141 H 129 H
08/02/23 08/02/23 08/02/23
20:00 21:03 22:02
Glucose
POC Glucose 151 H 128 H 111 H
05/04/2608/03/23 08/03/23
23:02 00:01 02:01
Glucose
POC Glucose 133 H 131 H 101 H
08/03/23 08/03/23 08/03/23
03:24 04:01 06:01
Glucose 100 H
POC Glucose 110 H 130 H
08/03/23
07:27
Glucose
POC Glucose 101 H
Patient Education
--- NOTE | 2023-08-03 08:15 | W.PN.CD ---
Today's Communication / Plan
-
Continue supportive care
Continue diuresis with bumex
wean vent and pressors as able
Impression / Plan
-
Impression/Plan: 82 y/o female with NIDDM, AF on apixaban, HTN, HLD, and severe CAD admitted with acute on chronic HFpEF and CIRO, found to be newly anemic and requiring transfusion, subsequently developing worsening hypoxic respiratory failure and
sinus/bradycardic arrest and ventilator dependent respiratory failure.
#Hypoxic respiratory failure/PNA
-Multifactorial, related to acute on chronic HFpEF, COPD, PNA.
-Legionella/Pneumococcal/COVID negative.
-Failed SBT today.
-Serial ABGs.
-UA & resp culture with Luisa albicans. Fluconazole started.
-Remains on norepinephrine. Check cortisol.
-Repeat CXR.
-neg influenza.
#HFrEF, acute on chronic
-LVEF 30-35%
-Cardiogenic shock at cath (PCWP > 24, CI < 2.2).
- Continue bumetanide 1 mg IV daily, CVP relatively normal at ~8 mm Hg
-She is not a candidate for MCS given her PAD.
-Renal function steady with diuresis.
-Trend CVP as a marker for volume.
-Maintain K > 4, Mg > 2, Ca > 8 and PO4 > 2.5.
- GDMT once able
#CAD
-Chronic, severe.
-Coronary angiography unchanged from 02/2023.
-Any intervention would be a highly complex and high risk procedure. If she fails to improve, we will revisit this option. She is not a candidate for CABG and declined this in the past.
-Troponin peaked on arrival (21) and fell. D/C trend. She likely peaked at [facility] (3000 on their scale).
#CIRO
-New diagnosis. Normal BUN/Cr at the time of cath in February.
-I suspect cardiorenal syndrome.
-Bladder US unremarkable. She will need a Renal US when extubated.
-BUN is out of proportion to creatinine.
#Sinus/Bradycardic arrest/PAF
-Confirmed by Dr. Maria.
-Could be related to pulmonary/hypoxic respiratory failure vs. underlying conduction failure.
-TPM placed, D/C'ed August 1.
-Could this have all been from respiratory failure rather than a true conduction issue?
- ECG today May 2
#PAF
-Lapsed into AF with moderate RVR
-No role for rate control at this time.
-CHADS2-Vasc = 7 (CHF, HTN, Age x2, DM, Vascular Disease, Female Gender).
-Anticoagulation on hold due to anemia.
#Anemia
-New diagnosis.
-Per notes, H/H has been drifting over several months.
-B12/Folate normal.
-Peripheral smear does not show schistocytes. Reticulocyte count is high - this effectively r/o hemolytic anemia or marrow failure.
-Fe/Fe% are low with a normal TIBC and Ferritin. There is clearly a component of Fe deficiency and AOCD. Ferritin is > 100, but should be much higher as an acute phase reactant.
-Thiamine pending.
-PO FeSO4.
-Repeat UA continues to show 3+ hematuria, less evidence of infection.
-Bladder US unremarkable.
-Transfuse for Hbg < 7/Hct < 21.
-BUN is out of proportion to creatinine, raising the possibility of GI blood loss. Reorder FOBT.
#Mild aortic stenosis, peak/mean 24/12mmHg
#Moderate mitral regurgitation, goal euvolemia
#NIDDM
#HTN
#HLD
Critical Care Time = 34 minutes.
Subjective/Interval History:
Failed SBT/CPAP yesterday.
Weight up, however bed weight, August 2 165 lbs from 161
Afebrile.
WBC trending down
HR < 100.
Code status changed to DNR.
Fluconazole added for C. albicans (urine, respiratory).
Hbg 7.5 (7.8 <-- 8.2 <-- 7.9).
TPM removed - no evidence of bradycardia.
DATA:
TTE: CONCLUSIONS July 302023
Left ventricle is mildly dilated.
Severely reduced left ventricular systolic function.
Inferolateral, anterolateral and inferior wall akinesis.
Left ventricular ejection fraction is 30-35%.
Severely dilated left atrium.
Moderate mitral regurgitation.
Mild aortic stenosis, mean gradient 12 mmHg.
No prior study available for comparison.
CXR, 07/29/2023:
IMPRESSION:
1. SEVERE ACUTE ALVEOLAR and INTERSTITIAL CARDIOGENIC PULMONARY EDEMA.
2. Small right pleural effusion.
3. Mild cardiomegaly.
4. Cardiac pacemaker wire projecting over the right ventricle.
5. Pulmonary arterial catheter in place with the tip in the right lower lobe pulmonary artery.
6. Endotracheal tube in place.
Cardiac Catheterization/TPM placement, 07/29/2023:
CONCLUSIONS:
1. Right dominant circulation with a densely calcified 90% subtotal lesion in the ostium of the RCA, tandem, densely calcified 70% 80% lesions in the crux of the RCA, a 30-40% distal tapering of a densely calcified left main coronary artery, a 50
to 60% lesion in the mid LAD and a densely calcified, 90% lesion in the ostium of the left circumflex. CHELO-3 flow is preserved in all vessels. Coronary anatomy is unchanged from prior cardiac catheterization of 02/21/2023.
2. Severely elevated filling pressures (LVEDP = 25 mmHg, PCWP = 27 mmHg at 75.8 kg).
3. Severely depressed cardiac function (cardiac index 1.88 L/min/m� on norepinephrine 10 mcg/kg/min) consistent with cardiogenic shock.
4. Bradycardic/sinus arrest, now status post successful placement of a temporary pacemaker.
CCT: 31 mins
Physical Exam
Vital Signs/Labs
Vital Signs
Temp Pulse Resp BP Pulse Ox
99.9 F 100 16 85/42 96
08/03/23 07:44 08/03/23 07:00 08/03/23 07:00 08/03/23 07:00 08/03/23 08:00
08/02/23 08/03/23 08/04/23
06:59 06:59 06:59
Actual Weight 161 lb 9.581 oz 165 lb 5.547 oz
08/03/23 03:24
08/03/23 03:24
PT 21.0 Sec (11.4-14.6) H 07/30/23 04:34
INR 1.83 07/30/23 04:34
APTT 56.8 Sec (23.4-35.0) H 07/29/23 18:02
Magnesium 2.5 mg/dl (1.6-2.3) H 08/01/23 03:56
Triglycerides 101 mg/dl (10-149) 08/01/23 03:56
07/31/23
04:11
[id number] Pept 80670
Physical Exam
Constitutional: Other (intubated and sedated )
EENT: Anicteric
Cardiovascular: Rhythm & rate is regular
Respiratory: Other (vented with b/l crackles )
GI: Soft
Neuro/Psych: Other (will respond to name )
Data Reviewed
-
Date of Service: August 03, 2023
Medical Decision Making: Reviewed Test Results
EKG: Tracing Personally Visualized and interpreted (possibly SR vs AF ECG pending )
Echo: Report Reviewed by me
X-Ray/CT/US/MRI/NUC/PET: Report Reviewed by me
Labs: Labs Reviewed by me
[2023-08-03] MEDS: STERILE WATER FOR INJECTION 10 ML IV (09:21)
[2023-08-03] MEDS: MAXIPIME 1000 MG IV (09:21)
[2023-08-03 09:43] LABS: Glucose - Point of Care 128 mg/dl (70-99)
[2023-08-03] MEDS: PRECEDEX 100 IV ×2 (10:24→17:18)
--- NOTE | 2023-08-03 10:53 | W.PN.INTV ---
Today's Communication / Plan
Recommendations
Complete antibiotics today
Transfusion 1 unit packed red blood cells
Diuresis as able
Follow renal function
Continue mechanical ventilation without change
Transition to Precedex, monitor heart rate.
Minimize fentanyl and propofol
Assessment
-
Assessment: 82-year-old female with a past medical history of CAD, DM type II, atrial fibrillation on Eliquis, aortic stenosis and HFpEF who was admitted to outside hospital due to weakness and shortness of breath. Patient also syncopized while at
home which was witnessed by her grandson. Patient was reportedly recently admitted and discharged from [facility] with acute on chronic HFpEF with pneumonia, treated with antibiotics but had been continued to experience shortness of breath since
discharge. The patient went to outside hospital and given Lasix in the ER which caused hypotension. She developed CIRO with anemia and coagulopathy and required vasopressors with Levophed. 1 unit PRBCs was given as well as antibiotics for possible
pneumonia. Patient then developed bradycardia and cardiac arrest requiring CPR --> ROSC obtained. Echo showed inferolateral wall motion abnormalities and transfer to [facility] was arranged for consideration of PPM. When the transfer
medical personnel arrived to outside hospital, patient appeared to be in worsening respiratory distress and was intubated prior to transfer. Once patient arrived here she was brought immediately to the [employer]. There was a densely calcified 90%
lesion in the ostium of the left circumflex as well as a 90% subtotal lesion in the ostium of the RCA. Also densely calcified 70-80% lesions in the crux of the RCA. Apparently the coronary anatomy is unchanged from prior cardiac catheterization
from February 2023. There was however severely elevated filling pressures with LVEDP 25 mmHg and PCWP of 27 mmHg. Also cardiac index was low at 1.88 while on Levophed consistent with cardiogenic shock. Medical management was decided given the
unchanged coronary anatomy compared to 02/2023, and dobutamine was started in the [employer] as well as Bumex drip. Temporary pacemaker also placed. Labs showed leukocytosis to 12.3, anemia to 9, initially was hypercapnic with pH of 7.21, pCO2 55,
hyponatremic to 132, CIRO with creatinine 2.1, elevated troponin of 21 with trace leukocyte esterase on urinalysis with moderate urine bacteria. Initial glucose via POCT was 223. Urine culture and respiratory culture were collected. CXR showed
severe pulmonary edema with a retrocardiac opacity. Unable to rule out concomitant pneumonia. Antibiotics were continued as well as dobutamine, Levophed, Bumex and patient was transferred to the CVICU for further care. Critical care service now
consulted for additional management/recommendations.
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
Impression:
#In-Hospital Cardiac Arrest with bradycardia just prior to arrest now s/p TVP --> suspect she arrested due to severe hypoxia from both acute pulmonary edema (?TACO vs acute HFpEF) + /- pneumonia
#Acute respiratory failure with hypoxia and hypercapnia on mechanical ventilation
#Pneumonia - she certainly aspirated during her cardiac arrest; it is unclear if she had a PNA prior to her recent hospitalization at [facility]
#Shock - cardiogenic and suspected septic as well
#Abnormal UA with suspected UTI
#Leukocytosis with left shift suspicious for sepsis given bilateral opacities on CXR concerning for suspected pneumonia
#Acute kidney injury
#Anemia
#A-fib on Eliquis
#DM type II
Plan:
-
Remains critically ill: On mechanical ventilation. On low-dose vasopressors.
-
Mechanical ventilation reviewed:
Overall pulmonary mechanics improved.
FiO2 only 40%.
No significant secretions.
ABG 08/01/2023: 7.46/35/84. Adequate oxygenation on ventilation.
Spontaneous breathing trial 08/03/2023: Shortly after sedation break patient has increased work of breathing. Maintaining oxygenation.
Suspect some degree of either delirium or anxiety as well.
-
Chest x-ray 08/02/2023: Persistent increased interstitial markings.
Continue antibiotics and diuresis as able.
Continue with daily sedation breaks
-
Transition to Precedex. Monitor heart rate closely.
Will attempt to wean off propofol and fentanyl if able.
Target RASS (-1 to 0)
Sedation break per protocol.
-
Fever curve improved/persistent leukocytosis improved.
Chest x-ray with multifocal infiltrates. Cannot rule out pneumonia.
-Legionella, Streptococcus antibodies negative.
Respiratory culture with Luisa albicans
Urine culture with Luisa albicans
Blood culture negative
MRSA screen pending
Procalcitonin significantly decreased.
Completed antibiotic today. Total of 6 days. Will continue to monitor closely
COVID-negative
Suspect respiratory Luisa is contaminant
Continue 7 days of enteral fluconazole. Has thrush/intertrigo and urine culture with Luisa
-
Pulmonary edema component:
Prior history of severe coronary artery disease. Not a candidate for any intervention. Case discussed with cardiology.
Cardiogenic shock component: Pulmonary capillary wedge pressure greater than 24, cardiac index less than 2.2.
Cardiac index improved
So far fluid balance negative. Clinically improved from the cardiac perspective.
Continue diuresis as able.
Monitor renal function closely. May need to give a break as the creatinine is a slightly increased.
Echocardiogram noted
-
Shock: Septic/possibly cardiogenic component as well.
Wean off Levophed. Intermittently requiring. Doubt ongoing septic shock. May be related to sedation.
PICC line in place
-
Echocardiogram 07/31/2023: Left ventricle ejection fraction 30-35%. Inferolateral, anterolateral and inferior wall akinesis. Severely reduced left ventricular systolic function. Severely dilated left atrium. Moderate MR. Mild aortic stenosis.
- Heart rate control with goal <110bpm
Pacer wire has been discontinued
- Replete electrolytes with K>4, Mg>2
-
Acute kidney injury: Possibly cardiorenal.
Stable creatinine from yesterday.
Miller in place, follow urinary output
Ischemic injury also possible with hypotension and sepsis.
Continue hemodynamic support
Repeat BMP later.
-
Anemia: No evidence for acute bleed
- transfuse as needed to keep Hb>7, plt>20k
Follow H&H. Trending lower. No evidence for acute bleeding.
Will transfuse today. Will obtain consent
- Maintain euglycemia with goal BG 140-180
Insulin drip will be started 08/01/2023.
Tube feeding started-tolerating.
- prn nebulized bronchodilators
- stress ulcer ppx: PPI
- DVT ppx - HSQ
Dr. Penaloza updated grandson at the bedside 07/31/2023, 08/01/2023 long discussion regarding critical illness. DNR status has been instituted
Critical care statement: A total of 31 minutes of critical care time was provided for this patient today. This includes management of unstable vital signs, evaluation of the patient at bedside, reviewing the patient's pertinent medical records
including radiographs, microbiology, laboratory evaluations, and discussion with primary team, consultants, pharmacy, nutrition, physical therapy, case management, charge nurse, critical care nursing, and respiratory therapy.

Data:
CXR 07-30-2023:
1. SEVERE ACUTE BILATERAL ALVEOLAR CARDIOGENIC PULMONARY EDEMA which appears unchanged.
2. Mild cardiomegaly.
3. Endotracheal tube, nasogastric tube, pulmonary arterial catheter, and right ventricular cardiac pacing wire in place.
Subjective Dataa
Subjective Data
Date of Service:
Date of Service: August 03, 2023
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
Subjective:
Remains intubated on mechanical ventilation.
After sedation breaks with increased work of breathing.
Occasionally following commands.
Review of Systems
General: Unobtainable - Sedation
Objective Data
Data Reviewed
Vital Signs / I&O / Oxygen:
Vital Signs
Temp Pulse Resp BP Pulse Ox
99.9 F 100 16 85/42 96
08/03/23 07:44 08/03/23 07:00 08/03/23 07:00 08/03/23 07:00 08/03/23 08:00
Intake and Output
08/02/23 08/03/23 08/04/23
06:59 06:59 06:59
Intake Total 2458.4 / 2458.4 2660.2 / 2708.7 327.4 / 327.4
Output Total 1325 / 1325 2260 / 2295 305 / 305
Balance 1133.4 / 1133.4 400.2 / 413.7 22.4 / 22.4
SaO2 [CPAP/PSV] 96
SaO2 [A/C] 96
SaO2 96
Physical Exam
General: Respiratory Distress (n)
HEENT: Normocephalic and Other (ET tube in place)
Cardiovascular: S1-S2
Respiratory: Clear and Non-Labored Respirations
GI: Soft and Non Distended
Neurology: Other (Moving 4 extremities with sedation breaks. Occasionally following commands) and Other (Sedated, on mechanical ventilation.)
Skin: Warm
Labs/Micro/Reports
Lab Data
08/03/23 03:24
08/03/23 03:24
Microbiology
07/30/23 17:20 Blood/Venous Blood Culture - Preliminary
No Growth in 72 hours- Final report to follow
08/02/23 11:25 Nasal Swab Influenza Types A & B (JOSEFA) - Final
Negative for Influenza A & B, NAAT
Negative results must be combined with clinical observations
and patient history.
Nucleic Acid Amplification test (NAAT)performed on the
[employer] platform.
07/31/23 14:28 Nose MRSA Screen - Final
No Methicillin Resistant Staphylococcus aureus isolated.
07/30/23 11:14 Endotracheal Respiratory Culture - Final
Luisa albicans
07/30/23 11:14 Endotracheal Gram Stain - Final
07/29/23 23:03 Urine Urine Culture - Final
Luisa albicans
07/30/23 17:20 Urine Legionella Urinary Antigen - Final
Negative for Legionella pneumophila Serogroup 1 antigen.
A negative result does not rule out the possiblity of
Legionella infection due to other serogroups or species of
Legionella. Clinical correlation is recommended.
07/30/23 17:20 Urine Streptococcus pneumoniae Antigen (M - Final
Negative for Streptococcus pneumoniae antigen.
A negative result does not exclude infection with
Streptococcus pneumoniae. Clinical correlation is
recommended.
[2023-08-03 11:16] LABS: Vitamin B1, Whole Blood 180 nmol/L (70-180)
--- NOTE | 2023-08-03 11:27 | PTCARENOTE ---
pt failed wean, Dr. Cao at bedside. propofol being weaned, precedex gtt initiated. insulin gtt and levo continue. turned and repositioned. assessment unchanged.
[2023-08-03 11:33] LABS: Glucose - Point of Care 134 mg/dl (70-99)
--- NOTE | 2023-08-03 12:06 | W.PN.HOSP.TC ---
Today's Communication/Plan
-
continue abx
vent weaning per supervisor chassis assembly
wean off pressors
Assessment / Plan
Assessment / Plan
TTE Left ventricle is mildly dilated.
Severely reduced left ventricular systolic function. Inferolateral, anterolateral and inferior wall akinesis. Left ventricular ejection fraction is 30-35%.
Severely dilated left atrium. Moderate mitral regurgitation. Mild aortic stenosis, mean gradient 12 mmHg. No prior study available for comparison.
CXR 07/30
1. Bilateral alveolar pulmonary edema with slight improvement compared to the chest radiograph from 07/30/2023.
2. Support tubes and lines, as detailed above.

1. In hospital Cardiorespiratory arrest with bradycardia
Vent dependent resp failure
Pneumonia
-Patient with sinus bradycardia cardiac arrest
-Patient was requiring temporary pacing for bradycardia.
-Cardio following and help appreciated.
-Patient was intubated during cardiac arrest. Vent weaning per supervisor chassis assembly.
-Legionella/streptococcal negative. COVID neg.
-Covered with cefepime/Diflucan. Resp culture growing Luisa only.
2. Cardiogenic Shock
-Requiring vasopressors post cardiac arrest likely due to suppressed cardiac function
-Potential differential of ongoing sepsis also playing a role
-Not a candidate of MCS with peripheral vascular disease
-Being treated for underlying issues
-Continue pressors norepinephrine and dobutamine drip as needed
3. Acute on chronic diastolic congestive heart failure:
-Monitor electrolytes and renal function
-Monitor ins and outs
-Cardiology on board
-Bumex drip d/roscoe. on IV daily bumex.
4. Elevated troponin with Type II OK
-Left heart catheterization showing known severe CAD. Not amenable to bypass.
-Any PCI option remains high risk procedure and cardiac will revisit if not improved medically
-Troponin of 21, trending down.
5. Acute kidney injury
-Presumed component of cardiorenal syndrome
-UA showing minimal RBC 7-10, few bacteria. No proteinuria.
-renal function trending down, max 2.1 at admit. cr 1.6 today.
-eventual renal bladder US
6. Paroxysmal atrial fibrillation:
-Anticoagulation on hold
-No rate control especially in the setting of bradycardia
7.Presumed Iron def Anemia
-Microcytic anemia with ferritin of 108 (acute phase reactant) with Iron sat 8%
-Hbg drifted down to 7.1. will need 1 u prbc
-High Juan Francisco-vasc score and will need to be back on AC eventually
8. Diabetes mellitus type 2:
-Insulin sliding scale
-Monitor blood sugar and adjust medications accordingly
9. Hypokalemia
-replace as needed
10. Essential Hypertension:
-Hold antihypertensive for now due to shock
11. Hyperlipidemia:
- Hold statins for now
12. Hyponatremia -resolved
DVT prophylaxis: SCDs
CODE STATUS: Full code
Total critical care time 36 mins . Total critical care time documented does not include time spent on separately billed procedures or the services of residents, students, nurses or physician assistants. I personally saw and examined the patient. I
have reviewed all diagnostic interpretations and treatment plans as written. I was present for the collazo portions of any procedures performed and the inclusive time noted in any critical care statement. Critical care time includes patient management
by me, time spent at the patients bedside, time to review lab and imaging results, discussing patient care, documentation in the medical record, and time spent with the family or caregiver.
Anticipated Discharge: > 48 hours
Subjective/Interval History
-
Date of Service: August 03, 2023
Remains intubated on ventilator
On small dose of vasopressors
Spiking fever in the morning
No other acute issues reported
Objective Data
-
Labs:
Laboratory Results
08/03/23
03:24
WBC 11.0 H
Hgb 7.1 L
Hct 21.6 L
Plt Count 223
Sodium 136
Potassium 3.9
Chloride 104
Carbon Dioxide 26
BUN 61 H
Creatinine 1.6 H
Glucose 100 H
Calcium 8.4
Vital Signs:
Vital Signs
Temp Pulse Resp BP Pulse Ox
100.8 F H 108 16 87/51 93
08/03/23 11:42 08/03/23 11:00 08/03/23 11:00 08/03/23 11:00 08/03/23 11:43
I&O
08/02/23 08/03/23 08/04/23
06:59 06:59 06:59
Intake Total 2458.4 / 2458.4 2660.2 / 2708.7 431.0 / 431.0
Output Total 1325 / 1325 2260 / 2295 415 / 415
Balance 1133.4 / 1133.4 400.2 / 413.7 16.0 / 16.0
Review of Systems
-
Unable to obtain full review of systems at this time due to: Acuity and Patient Intubation
Physical Exam
-
General: No Apparent Distress
HEENT: Other (Intubated on ventilator)
Respiratory: Clear to Auscultation
Cardiac: Regular Rhythm and S1/S2; Negative Murmur or Rub
GI: Soft, Nontender and Nondistended
Genito-urinary: Miller (clear urine)
Musculoskeletal: No Edema
Neuro: Awake (waking up off sedation)
Psych: Calm
[2023-08-03] MEDS: NOVOLIN R INSULIN INFUSION 100 IV (12:07)
[2023-08-03] MEDS: SUBLIMAZE 100 IV (12:07)
[2023-08-03 13:45] LABS: Glucose - Point of Care 74 mg/dl (70-99)
[2023-08-03 14:33] LABS: Glucose - Point of Care 95 mg/dl (70-99)
[2023-08-03 15:47] LABS: Glucose - Point of Care 137 mg/dl (70-99)
[2023-08-03] MEDS: ZOLOFT 100 MG TUBE (16:02)
--- NOTE | 2023-08-03 16:14 | PTCARENOTE ---
foams applied to heels and sacrum for protection. propofol weaned off, remains on precedex and fentanyl for sedation. pt arouses to name, moves extremities, not following all commands. bed change provided. 1 unit of prbc infusing and tolerating.
assessment further unchanged.
[2023-08-03 16:38] LABS: Glucose - Point of Care 141 mg/dl (70-99)
[2023-08-03 17:31] LABS: Glucose - Point of Care 138 mg/dl (70-99)
[2023-08-03 18:37] LABS: Glucose - Point of Care 134 mg/dl (70-99)
[2023-08-03 19:51] LABS: Glucose - Point of Care 119 mg/dl (70-99)
[2023-08-03] MEDS: ATIVAN 1 MG IV (21:01)
[2023-08-03] MEDS: NSS (PRESERVATIVE FREE) 0.5 ML IV (21:01)
--- NOTE | 2023-08-03 21:17 | PTCARENOTE ---
received patient from previous shift. awake, following commands. ETT- 7 23 at the center, AC 16/500/40. NS on the monitor. Miller draining clear yellow urine. levo, fentanyl, precedex infusing. pt restless, throwing legs over the side rails, trying
to sit up, pulling at restraints. PRN fentanyl given, gtt increased as well as precedex increased without effect. PRN ativan ordered. pt now resting. grandson at bedside. updated on current status. emotional support provided.
[2023-08-03 21:43] LABS: Glucose - Point of Care 142 mg/dl (70-99)
[2023-08-03 23:44] LABS: Glucose - Point of Care 139 mg/dl (70-99)
[2023-08-04] VITALS (51 sets, daily range): BP systolic 78–122; BP diastolic 43–78; BMI 32.9
[2023-08-04 00:45] LABS: Glucose - Point of Care 128 mg/dl (70-99)
[2023-08-04 01:45] LABS: Glucose - Point of Care 111 mg/dl (70-99)
[2023-08-04 02:51] LABS: Glucose - Point of Care 108 mg/dl (70-99)
[2023-08-04 03:53] LABS: Glucose - Point of Care 117 mg/dl (70-99)
[2023-08-04 05:00] LABS: Hemoglobin 8.4 g/dL (12.0-16.0); Mean Corp Hgb Conc. 33.6 g/dL (33.0-37.0); Mean Corpuscular Hgb 25.7 pg (27.0-31.0); Mean Corpuscular Volume 76.5 fL (81.0-99.0); Mean Platelet Volume 11.9 fL (7.4-10.4); Platelet Count 248 10^3/uL (130-400); Red Blood Cell Count 3.27 10^6/uL (4.20-5.40); Red Cell Dist. Width 18.4 % (11.5-14.5); White Blood Cell Count 13.5 10^3/uL (4.8-10.8)
[2023-08-04] MEDS: PRECEDEX 100 IV ×3 (05:20→20:44)
[2023-08-04 05:23] LABS: Blood Urea Nitrogen 62 mg/dl (7-17); Calcium 8.9 mg/dl (8.4-10.2); Carbon Dioxide 25 mmol/L (22-30); Chloride 101 mmol/L (98-107); Estimated Creatinine Clearance 26 ml/min; Glucose 104 mg/dl (70-99); Potassium 3.5 mmol/L (3.5-5.1); Sodium 135 mmol/L (135-145); Triglycerides 62 mg/dl (10-149); eGFR 34.15
[2023-08-04] MEDS: SUBLIMAZE 100 IV ×2 (05:58→23:36)
[2023-08-04 06:13] LABS: Glucose - Point of Care 146 mg/dl (70-99)
[2023-08-04] MEDS: KCL 260 MEQ IV (06:13)
[2023-08-04] MEDS: MIRALAX 17 GRAMS TUBE (07:34)
[2023-08-04] MEDS: ZOLOFT 100 MG TUBE (07:34)
[2023-08-04] MEDS: FERROUS SULFATE ORAL LIQUID 300 MG TUBE ×2 (07:34→20:13)
[2023-08-04] MEDS: HEPARIN 5000 UNITS SC (07:35)
[2023-08-04] MEDS: DIFLUCAN 100 MG TUBE (07:35)
[2023-08-04] MEDS: BUMEX 1 MG IV (07:35)
[2023-08-04] MEDS: DESENEX/MITRAZOL/ZEASORB 1 APPLIC TOPICAL ×2 (07:35→20:13)
[2023-08-04 07:47] LABS: Glucose - Point of Care 130 mg/dl (70-99)
[2023-08-04] MEDS: LEVOPHED 250 IV ×2 (08:06→16:10)
--- NOTE | 2023-08-04 08:18 | PTCARENOTE ---
pt received from previous rn- ett to vent- see settings as charted. precedex, fentanyl, insulin and levo gtts all continue. pt with right double lumen picc- c/d/i- flushes, cvp monitoring zeroed and functioning. right ij cordis- flushes- site cdi.
oral care provided. turned and repositioned. pt arouses to name, agigtated with stimulation. nsr on monitor. tube feeds tolerated. all safety precautions in place.
--- NOTE | 2023-08-04 08:32 | PN.DE.MGMTRT ---
Insulin Management
- -
08/04/2023 Diabetes Management Follow up:
Patient admitted 07/28 from [facility] with difficult course. Hypoxic respiratory failure, cardiac arrest cardiogenic shock. PMH severe CAD, HTN, HLD, , CHF, A-fib. A1C on admission 6.3, cr 1.4, eGFR 37.10.
Pt remains intubated and unable to participate in interview. Information obtained from chart review and patients nurse.
Tube feeds continue at 45/Hr, as well as glycemic protocol insulin infusion.
Glucose is stable without hypoglycemic episodes, range of 108 to 146, requiring 3 to 4.5 units on insulin/hr
Patient is not expected to start wean or extubate. Will continue glycemic protocol for now.
Discussed with patients nurse.
Diabetes History
- -
Type of Diabetes: 2
Pre-Admission Diabetes Regimen
08/04/23
04:48
Creatinine 1.5 H
Lab Results
Hemoglobin A1c 6.3 % (4.0-5.6) H 07/30/23 04:34
Insulin Pump Settings
IP Diabetes Regimen
08/03/23 08/03/23 08/03/23
09:31 11:22 13:33
Glucose
POC Glucose 128 H 134 H 74
08/03/23 08/03/23 08/03/23
14:22 15:36 16:26
Glucose
POC Glucose 95 137 H 141 H
08/03/23 08/03/23 08/03/23
17:20 18:26 19:38
Glucose
POC Glucose 138 H 134 H 119 H
08/03/23 08/03/23 08/04/23
21:29 23:33 00:34
Glucose
POC Glucose 142 H 139 H 128 H
08/04/23 08/04/23 08/04/23
01:33 02:40 03:42
Glucose
POC Glucose 111 H 108 H 117 H
08/04/23 08/04/23 08/04/23
04:48 06:02 07:36
Glucose 104 H
POC Glucose 146 H 130 H
Patient Education
--- NOTE | 2023-08-04 09:15 | W.PN.CD ---
Today's Communication / Plan
-
remains intubated
continue IV bumex
resume ASA 81mg daily
Impression / Plan
-
Impression/Plan: 82 y/o female with NIDDM, AF on apixaban, HTN, HLD, and severe CAD admitted with acute on chronic HFpEF and CIRO, found to be newly anemic and requiring transfusion, subsequently developing worsening hypoxic respiratory failure and
sinus/bradycardic arrest and ventilator dependent respiratory failure.
#Hypoxic respiratory failure
-Multifactorial, related to HF, COPD, PNA.
-remains intubated
-on Abx
#HFrEF, acute on chronic
-LVEF 30-35% (see echo below)
-Cardiogenic shock at cath (PCWP > 24, CI < 2.2) on 07/28
- Continue bumetanide 1 mg IV daily
-She is not a candidate for MCS given her PAD.
- GDMT once able (still on pressors)
#CAD
-Chronic, severe.
-Coronary angiography unchanged from 02/2023. Med mgmt.
-Any intervention would be a highly complex and high risk procedure. If she fails to improve, we will revisit this option. She is not a candidate for CABG and declined this in the past.
-resume ASA 81mg daily
#CIRO: new baseline may be Cr 1.5, CKD3b
-suspect cardiorenal syndrome.
-monitor with diuresis
#Sinus/Bradycardic arrest/PAF
-Confirmed by Dr. Maria.
-Could be related to pulmonary/hypoxic respiratory failure vs. underlying conduction failure.
-TPM placed, then D/C'ed May 1.
-Could this have all been from respiratory failure rather than a true conduction issue?
#Parox AFib
-A fib with RVR earlier in this admission; now back to SR with PAC's
-given bradycardic arrest, will remain off of AV meliza agents
-CHADS2-Vasc = 7 (CHF, HTN, Age x2, DM, Vascular Disease, Female Gender).
-Anticoagulation on hold due to anemia.
#Anemia
-per primary team
#Mild aortic stenosis, peak/mean 24/12mmHg
#Moderate mitral regurgitation
#NIDDM
#HTN
#HLD
Subjective/Interval History:
remains intubated
CCT 35 minutes
DATA:
TTE: CONCLUSIONS July 302023
Left ventricle is mildly dilated.
Severely reduced left ventricular systolic function.
Inferolateral, anterolateral and inferior wall akinesis.
Left ventricular ejection fraction is 30-35%.
Severely dilated left atrium.
Moderate mitral regurgitation.
Mild aortic stenosis, mean gradient 12 mmHg.
No prior study available for comparison.
CXR, 07/29/2023:
IMPRESSION:
1. SEVERE ACUTE ALVEOLAR and INTERSTITIAL CARDIOGENIC PULMONARY EDEMA.
2. Small right pleural effusion.
3. Mild cardiomegaly.
4. Cardiac pacemaker wire projecting over the right ventricle.
5. Pulmonary arterial catheter in place with the tip in the right lower lobe pulmonary artery.
6. Endotracheal tube in place.
Cardiac Catheterization/TPM placement, 07/29/2023:
CONCLUSIONS:
1. Right dominant circulation with a densely calcified 90% subtotal lesion in the ostium of the RCA, tandem, densely calcified 70% 80% lesions in the crux of the RCA, a 30-40% distal tapering of a densely calcified left main coronary artery, a 50
to 60% lesion in the mid LAD and a densely calcified, 90% lesion in the ostium of the left circumflex. CHELO-3 flow is preserved in all vessels. Coronary anatomy is unchanged from prior cardiac catheterization of 02/21/2023. Medical management
recommended.
2. Severely elevated filling pressures (LVEDP = 25 mmHg, PCWP = 27 mmHg at 75.8 kg).
3. Severely depressed cardiac function (cardiac index 1.88 L/min/m� on norepinephrine 10 mcg/kg/min) consistent with cardiogenic shock.
4. Bradycardic/sinus arrest, now status post successful placement of a temporary pacemaker.
Physical Exam
Vital Signs/Labs
Vital Signs
Temp Pulse Resp BP Pulse Ox
98.4 F 73 17 107/69 95
08/04/23 07:40 08/04/23 08:00 08/04/23 08:00 08/04/23 08:00 08/04/23 08:00
08/03/23 08/04/23 08/05/23
06:59 06:59 06:59
Actual Weight 75 kg 76.4 kg
08/04/23 04:48
08/04/23 04:48
PT 21.0 Sec (11.4-14.6) H 07/30/23 04:34
INR 1.83 07/30/23 04:34
APTT 56.8 Sec (23.4-35.0) H 07/29/23 18:02
Magnesium 2.5 mg/dl (1.6-2.3) H 08/01/23 03:56
Triglycerides 62 mg/dl (10-149) 08/04/23 04:48
07/31/23
04:11
Soq-N-Agenjsokeyk Pept [id number]
Physical Exam
Constitutional: Other (intubated)
Cardiovascular: Rhythm/rate is irregular, Pedal edema present, JVD present and Systolic murmur present
Respiratory: Other (mechanical ventilation)
GI: Soft and Distention absent
Neuro/Psych: Other (sedated)
Data Reviewed
-
Date of Service: August 04, 2023
EKG: Other (tele: SR, PAC's)
Echo: Report Reviewed by me
Labs: Labs Reviewed by me
Critical Care Time (in minutes): 35
[2023-08-04 09:47] LABS: Glucose - Point of Care 130 mg/dl (70-99)
[2023-08-04] MEDS: ZYPREXA 5 MG TUBE (09:49)
--- NOTE | 2023-08-04 10:37 | PTCARENOTE ---
right IJ cordis removed per Dr. Nash reyes. d/c cvp monitoring per mds. pressure dressing applied to site, pressure held for 5 minutes.
--- NOTE | 2023-08-04 11:03 | W.PN.INTV ---
Today's Communication / Plan
Recommendations
Continue mechanical ventilation without change
Continue Precedex at low-dose
Will add antipsychotic
Minimize fentanyl
Diuresis as able
Follow electrolytes
Monitor for fever curve off antibiotics
Nutritional support
Discontinue Cordis
Restart anticoagulation
Spontaneous breathing trial on a daily basis as able.
Assessment
-
Assessment: 82-year-old female with a past medical history of CAD, DM type II, atrial fibrillation on Eliquis, aortic stenosis and HFpEF who was admitted to outside hospital due to weakness and shortness of breath. Patient also syncopized while at
home which was witnessed by her grandson. Patient was reportedly recently admitted and discharged from [facility] with acute on chronic HFpEF with pneumonia, treated with antibiotics but had been continued to experience shortness of breath since
discharge. The patient went to outside hospital and given Lasix in the ER which caused hypotension. She developed CIRO with anemia and coagulopathy and required vasopressors with Levophed. 1 unit PRBCs was given as well as antibiotics for possible
pneumonia. Patient then developed bradycardia and cardiac arrest requiring CPR --> ROSC obtained. Echo showed inferolateral wall motion abnormalities and transfer to [facility] was arranged for consideration of PPM. When the transfer
medical personnel arrived to outside hospital, patient appeared to be in worsening respiratory distress and was intubated prior to transfer. Once patient arrived here she was brought immediately to the [facility]. There was a densely calcified 90%
lesion in the ostium of the left circumflex as well as a 90% subtotal lesion in the ostium of the RCA. Also densely calcified 70-80% lesions in the crux of the RCA. Apparently the coronary anatomy is unchanged from prior cardiac catheterization
from February 2023. There was however severely elevated filling pressures with LVEDP 25 mmHg and PCWP of 27 mmHg. Also cardiac index was low at 1.88 while on Levophed consistent with cardiogenic shock. Medical management was decided given the
unchanged coronary anatomy compared to 02/2023, and dobutamine was started in the [facility] as well as Bumex drip. Temporary pacemaker also placed. Labs showed leukocytosis to 12.3, anemia to 9, initially was hypercapnic with pH of 7.21, pCO2 55,
hyponatremic to 132, CIRO with creatinine 2.1, elevated troponin of 21 with trace leukocyte esterase on urinalysis with moderate urine bacteria. Initial glucose via POCT was 223. Urine culture and respiratory culture were collected. CXR showed
severe pulmonary edema with a retrocardiac opacity. Unable to rule out concomitant pneumonia. Antibiotics were continued as well as dobutamine, Levophed, Bumex and patient was transferred to the CVICU for further care. Critical care service now
consulted for additional management/recommendations.
Chronic conditions [employer]: CAD, CHF, COPD, HTN, A-fib on Eliquis, hypercholesterolemia and NIDDM
Impression:
#In-Hospital Cardiac Arrest with bradycardia just prior to arrest now s/p TVP --> suspect she arrested due to severe hypoxia from both acute pulmonary edema (?TACO vs acute HFpEF) + /- pneumonia
#Acute respiratory failure with hypoxia and hypercapnia on mechanical ventilation
#Pneumonia - she certainly aspirated during her cardiac arrest; it is unclear if she had a PNA prior to her recent hospitalization at [facility] [place]
#Shock - cardiogenic and suspected septic as well
#Abnormal UA with suspected UTI
#Leukocytosis with left shift suspicious for sepsis given bilateral opacities on CXR concerning for suspected pneumonia
#Acute kidney injury
#Anemia
#A-fib on Eliquis
#DM type II
Plan:
-
Remains critically ill: On mechanical ventilation.
Still requiring some degree of vasopressors. Possibly due to sedation.
-
Mechanical ventilation reviewed:
Pulmonary mechanics improved.
FiO2 only 40%.
No significant secretions.
ABG 08/01/2023: 7.46/35/84. Adequate oxygenation on ventilation.
Spontaneous breathing trial 08/03/2023: Shortly after sedation break patient has increased work of breathing. Maintaining oxygenation.
-
Anxiety/possibly delirium as the patient becomes restless and agitated with any sedation breaks.
Will add antipsychotics.
Continue Precedex. Minimize as able. Monitor heart rate closely.
Will attempt to wean off propofol and fentanyl if able.
Target RASS (-1 to 0)
Sedation break per protocol.
-
Chest x-ray 08/02/2023: Persistent increased interstitial markings.
Repeat chest x-ray tomorrow 08/05/2023.
-
Continue antibiotics and diuresis as able.
-
Fever curve resolved/persistent leukocytosis improved.
Chest x-ray with multifocal infiltrates. Cannot rule out pneumonia.
-Legionella, Streptococcus antibodies negative.
Respiratory culture with Luisa albicans
Urine culture with Luisa albicans
Blood culture negative
MRSA screen pending
Procalcitonin significantly decreased.08/03/2023
Completed antibiotic 08/03/2023. Total of 6 days. Will continue to monitor closely
COVID-negative
Suspect respiratory Luisa is contaminant
Continue 7 days of enteral fluconazole. Has thrush/intertrigo and urine culture with Luisa
-
Pulmonary edema component:
Echocardiogram 07/31/2023: Left ventricle ejection fraction 30-35%. Inferolateral, anterolateral and inferior wall akinesis. Severely reduced left ventricular systolic function. Severely dilated left atrium. Moderate MR. Mild aortic stenosis.
Pacer wire has been discontinued
Prior history of severe coronary artery disease. Not a candidate for any intervention. Case discussed with cardiology.
Cardiogenic shock component: Pulmonary capillary wedge pressure greater than 24, cardiac index less than 2.2.
Cardiac index improved
Clinically improved from the cardiac perspective.
Continue diuresis as able.
Okay to restart PO anticoagulation as the patient has atrial fibrillation with high CHADS2 score's.
Monitor renal function closely. BUN increasing. Rerecording Mixer stable.
-
Shock: Septic/possibly cardiogenic component as well.
Wean off Levophed. Intermittently requiring. Doubt ongoing septic shock. May be related to sedation.
PICC line in place
-
Acute kidney injury: Possibly cardiorenal.
Stable creatinine from yesterday.
Miller in place, follow urinary output
Ischemic injury also possible with hypotension and sepsis.
Continue hemodynamic support
-
Anemia: No evidence for acute bleed
s/p transfusion.
- Maintain euglycemia with goal BG 140-180
Insulin drip will be started 08/01/2023.
Tube feeding -tolerating.
- prn nebulized bronchodilators
- stress ulcer ppx: PPI
- DVT ppx - HSQ
Dr. Penaloza updated grandson at the bedside 07/31/2023, 08/01/2023 long discussion regarding critical illness. DNR status has been instituted
Critical care statement: A total of 32 minutes of critical care time was provided for this patient today. This includes management of unstable vital signs, evaluation of the patient at bedside, reviewing the patient's pertinent medical records
including radiographs, microbiology, laboratory evaluations, and discussion with primary team, consultants, pharmacy, nutrition, physical therapy, case management, charge nurse, critical care nursing, and respiratory therapy.

Data:
CXR 07-30-2023:
1. SEVERE ACUTE BILATERAL ALVEOLAR CARDIOGENIC PULMONARY EDEMA which appears unchanged.
2. Mild cardiomegaly.
3. Endotracheal tube, nasogastric tube, pulmonary arterial catheter, and right ventricular cardiac pacing wire in place.
Subjective Dataa
Subjective Data
Date of Service:
Date of Service: August 04, 2023
Chief Complaint: Silicator Follow Up (Acute hypoxemic respiratory failure requiring mechanical ventilation.)
Subjective:
Remains on mechanical ventilation, critically ill.
With sedation breaks becomes restless. Not following commands.
Review of Systems
General: Unobtainable - Sedation
Objective Data
Data Reviewed
Vital Signs / I&O / Oxygen:
Vital Signs
Temp Pulse Resp BP Pulse Ox
98.4 F 80 17 108/59 93
08/04/23 07:40 08/04/23 10:00 08/04/23 10:00 08/04/23 09:30 08/04/23 10:00
Intake and Output
08/03/23 08/04/23 08/05/23
06:59 06:59 06:59
Intake Total 2660.2 / 2708.7 3188.1 / 3330.0 419.1 / 419.1
Output Total 2260 / 2295 1365 / 1415 360 / 360
Balance 400.2 / 413.7 1823.1 / 1915.0 59.1 / 59.1
SaO2 [CPAP/PSV] 96
SaO2 [A/C] 40
SaO2 93
Physical Exam
General: Respiratory Distress (n)
HEENT: Normocephalic and Other (ET tube in place)
Cardiovascular: S1-S2
Respiratory: Clear and Non-Labored Respirations
GI: Soft and Non Distended
Neurology: Other (Moving 4 extremities with sedation breaks. Occasionally following commands) and Other (Sedated, on mechanical ventilation.)
Skin: Warm
Labs/Micro/Reports
Lab Data
08/04/23 04:48
08/04/23 04:48
Microbiology
07/30/23 17:20 Blood/Venous Blood Culture - Preliminary
No Growth in 4 days- Final report to follow
08/02/23 11:25 Nasal Swab Influenza Types A & B (JOSEFA) - Final
Negative for Influenza A & B, NAAT
Negative results must be combined with clinical observations
and patient history.
Nucleic Acid Amplification test (NAAT)performed on the
[employer] platform.
07/31/23 14:28 Nose MRSA Screen - Final
No Methicillin Resistant Staphylococcus aureus isolated.
07/30/23 11:14 Endotracheal Respiratory Culture - Final
Luisa albicans
07/30/23 11:14 Endotracheal Gram Stain - Final
[2023-08-04] MEDS: LOW STRENGTH ASPIRIN 81 MG TUBE (11:35)
[2023-08-04] MEDS: SENOKOT-S 1 TABLET TUBE ×2 (11:35→20:13)
[2023-08-04 11:43] LABS: Glucose - Point of Care 160 mg/dl (70-99)
--- NOTE | 2023-08-04 11:48 | PTCARENOTE ---
pt fentanyl gtt on hold for wean pt remains on precedex. pt on wean- dr. mata and rt at bedside- abg completed. grandson at bedside and updated. oral care provided.
[2023-08-04 11:55] LABS: B.E. -0.1 mmol/L; HCO3 23.3 mmol/L (21-28); O2 Saturation % 95.6 % (94-98); PCO2 32 mmHg (32-35); PO2 66 mmHg (83-108); pH 7.47 (7.35-7.45)
[2023-08-04] MEDS: SUBLIMAZE 50 MCG IV ×4 (12:40→22:30)
[2023-08-04 12:44] LABS: Glucose - Point of Care 154 mg/dl (70-99)
[2023-08-04 13:37] LABS: Glucose - Point of Care 135 mg/dl (70-99)
[2023-08-04 14:26] LABS: Glucose - Point of Care 119 mg/dl (70-99)
--- NOTE | 2023-08-04 14:33 | CM ---
CM following re: discharge planning.
Discussed in Rounds, reviewed pt's chart, met with pt. Pt's grandson Terry visits pt on a daily basis. Pt is In-Hospital Cardiac Arrest with bradycardia, remains critically ill, remains intubated, weaning trial on a daily basis, continue
supportive care.
Per grandson, he lives with the pt in a 2SH, 5 steps to enter, has 1st floor set up, has one living daughter who is not involved in pt's live. Per grandson, pt's another daughter, his mother, . Emotional support offered and provided. Pt's
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
D/c plan: uncertain at this time and will depend on pt's progress.
CM will follow with discharge plan updates as hospitalization progres
[2023-08-04 15:39] LABS: Glucose - Point of Care 103 mg/dl (70-99)
[2023-08-04] MEDS: NOVOLIN R INSULIN INFUSION 100 IV (15:41)
[2023-08-04 16:27] LABS: Glucose - Point of Care 101 mg/dl (70-99)
--- NOTE | 2023-08-04 16:59 | W.PN.HOSP.TC ---
Today's Communication/Plan
-
f/u hbg level
continue on bumex
f/u weight/cr
wean off pressors
ongoing vent weaning effort
Assessment / Plan
Assessment / Plan
TTE Left ventricle is mildly dilated.
Severely reduced left ventricular systolic function. Inferolateral, anterolateral and inferior wall akinesis. Left ventricular ejection fraction is 30-35%.
Severely dilated left atrium. Moderate mitral regurgitation. Mild aortic stenosis, mean gradient 12 mmHg. No prior study available for comparison.
CXR 07/30
1. Bilateral alveolar pulmonary edema with slight improvement compared to the chest radiograph from 07/30/2023.
2. Support tubes and lines, as detailed above.

1. In hospital Cardiorespiratory arrest with bradycardia
Vent dependent resp failure
Pneumonia
-Patient with sinus bradycardia cardiac arrest
-Patient was requiring temporary pacing for bradycardia.
-Cardio following and help appreciated.
-Patient was intubated during cardiac arrest. Vent weaning per clinical nurse specialist.
-Legionella/streptococcal negative. COVID neg.
-Covered with cefepime/Diflucan. Resp culture growing Luisa only.
-On going vent weaning efforts.
2. Cardiogenic Shock
-Requiring vasopressors post cardiac arrest likely due to suppressed cardiac function
-Potential differential of ongoing sepsis also playing a role
-Not a candidate of MCS with peripheral vascular disease
-Being treated for underlying issues
-Continue wean off pressors as needed
3. Acute on chronic diastolic congestive heart failure:
-Monitor electrolytes and renal function
-Monitor ins and outs
-Cardiology on board
-Bumex drip d/roscoe. on IV daily bumex.
4. Elevated troponin with Type II CT
-Left heart catheterization showing known severe CAD. Not amenable to bypass.
-Any PCI option remains high risk procedure and cardiac will revisit if not improved medically
-Troponin of 21, trending down.
5. Acute kidney injury
-Presumed component of cardiorenal syndrome
-UA showing minimal RBC 7-10, few bacteria. No proteinuria.
-renal function trending down, max 2.1 at admit. cr 1.5 today.
-eventual renal bladder US
6. Paroxysmal atrial fibrillation:
-Anticoagulation on hold
-No rate control especially in the setting of bradycardia
7.Presumed Iron def Anemia
-Microcytic anemia with ferritin of 108 (acute phase reactant) with Iron sat 8%
-got 1 u prbc yesterday, hbg 8.4 , continue monitor
-patient has been started back on eliquis
8. Diabetes mellitus type 2:
-Insulin sliding scale
-Monitor blood sugar and adjust medications accordingly
9. Hypokalemia
-replace as needed
10. Essential Hypertension:
-Hold antihypertensive for now due to shock
11. Hyperlipidemia:
- Hold statins for now
12. Hyponatremia -resolved
DVT prophylaxis: SCDs
CODE STATUS: Full code
Total critical care time 37 mins . Total critical care time documented does not include time spent on separately billed procedures or the services of residents, students, nurses or physician assistants. I personally saw and examined the patient. I
have reviewed all diagnostic interpretations and treatment plans as written. I was present for the collazo portions of any procedures performed and the inclusive time noted in any critical care statement. Critical care time includes patient management
by me, time spent at the patients bedside, time to review lab and imaging results, discussing patient care, documentation in the medical record, and time spent with the family or caregiver.
Anticipated Discharge: > 48 hours
Subjective/Interval History
-
Date of Service: August 04, 2023
remains intubated on vent
continue to require pressor support
ongoing sedation vacation/vent weaning
Objective Data
-
Labs:
Laboratory Results
08/04/23 08/04/23
04:48 11:49
WBC 13.5 H
Hgb 8.4 L
Hct 25.0 L
Plt Count 248
HCO3 23.3
Sodium 135
Potassium 3.5
Chloride 101
Carbon Dioxide 25
BUN 62 H
Creatinine 1.5 H
Glucose 104 H
Calcium 8.9
Vital Signs:
Vital Signs
Temp Pulse Resp BP Pulse Ox
100.3 F 91 19 99/56 95
08/04/23 15:25 08/04/23 15:30 08/04/23 15:30 08/04/23 15:30 08/04/23 15:42
I&O
08/03/23 08/04/23 08/05/23
06:59 06:59 06:59
Intake Total 2660.2 / 2708.7 3188.1 / 3330.0 807.9 / 807.9
Output Total 2260 / 2295 1365 / 1415 760 / 760
Balance 400.2 / 413.7 1823.1 / 1915.0 47.9 / 47.9
Review of Systems
-
Unable to obtain full review of systems at this time due to: Patient Intubation
Physical Exam
-
General: No Apparent Distress
HEENT: Other (Intubated on ventilator)
Respiratory: Clear to Auscultation
Cardiac: Regular Rhythm and S1/S2; Negative Murmur or Rub
GI: Soft, Nontender and Nondistended
Genito-urinary: Miller (clear urine)
Musculoskeletal: No Edema
Neuro: Sedated; Negative Awake or Alert
Psych: Calm
--- NOTE | 2023-08-04 18:07 | PTCARENOTE ---
pt desatting and tachypneic on wean- place back on AC. fentanyl gtt back on, precedex continues. insulin and levo as charted on flow sheet. family at bedside and updated. tube feeds increased to 55cc/hr per order. tolerating. assessment unchanged
further.
[2023-08-04 18:35] LABS: Glucose - Point of Care 125 mg/dl (70-99)
--- NOTE | 2023-08-04 20:00 | PTCARENOTE ---
Assumed care of patient at 1900. Nursing assessment as documented. Patient intubated and sedated but arouses to verbal/tactile stimuli, occasionally tracks with eyes, VEGA, FSC at time's. Intermittent periods of restlessness/agitation. #7 ETT 23cm at
R lip, AC 16/500/5/50, tolerating settings at this time, sat 95%. SR with PAC's on monitor, +2 generalized anasarca throughout. Osmolite 1.2 running at goal 55ml/hr with 25ml/hr water flush via OGT at 50cm, tolerating feeding. Miller catheter in
place draining yellow urine with sediment, hygiene care provided. Protective foams remain in place, MASD noted to L breast, desenex applied. Levophed, precedex, fentanyl, and insulin infusing, see worklist/MAR. Repositioned, hygiene provided, care
ongoing.
[2023-08-04] MEDS: ELIQUIS 2.5 MG TUBE (20:13)
[2023-08-04 20:38] LABS: Glucose - Point of Care 125 mg/dl (70-99)
[2023-08-04 22:56] LABS: Glucose - Point of Care 113 mg/dl (70-99)
[2023-08-05] VITALS (28 sets, daily range): BP systolic 67–105; BP diastolic 38–66; BMI 33.3
[2023-08-05 00:40] LABS: Glucose - Point of Care 71 mg/dl (70-99)
[2023-08-05 01:46] LABS: Glucose - Point of Care 96 mg/dl (70-99)
[2023-08-05 02:42] LABS: Glucose - Point of Care 145 mg/dl (70-99)
[2023-08-05 03:50] LABS: Glucose - Point of Care 168 mg/dl (70-99)
[2023-08-05 04:07] LABS: Hematocrit 22.9 % (37.0-47.0); Hemoglobin 7.7 g/dL (12.0-16.0); Mean Corp Hgb Conc. 33.6 g/dL (33.0-37.0); Mean Corpuscular Hgb 25.7 pg (27.0-31.0); Mean Corpuscular Volume 76.3 fL (81.0-99.0); Mean Platelet Volume 11.9 fL (7.4-10.4); Platelet Count 243 10^3/uL (130-400); Red Cell Dist. Width 18.1 % (11.5-14.5); White Blood Cell Count 11.5 10^3/uL (4.8-10.8)
[2023-08-05 04:31] LABS: Blood Urea Nitrogen 58 mg/dl (7-17); Carbon Dioxide 23 mmol/L (22-30); Chloride 97 mmol/L (98-107); Estimated Creatinine Clearance 27 ml/min; Glucose 234 mg/dl (70-99); Potassium 3.8 mmol/L (3.5-5.1); Sodium 126 mmol/L (135-145)
[2023-08-05 04:42] LABS: Glucose - Point of Care 156 mg/dl (70-99)
[2023-08-05] MEDS: SUBLIMAZE 50 MCG IV ×2 (04:43→09:17)
[2023-08-05] MEDS: PRECEDEX 100 IV (05:53)
[2023-08-05 06:23] LABS: Blood Urea Nitrogen 61 mg/dl (7-17); Calcium 8.3 mg/dl (8.4-10.2); Carbon Dioxide 21 mmol/L (22-30); Chloride 99 mmol/L (98-107); Estimated Creatinine Clearance 28 ml/min; Glucose 151 mg/dl (70-99); Potassium 4.1 mmol/L (3.5-5.1); Sodium 130 mmol/L (135-145)
[2023-08-05 06:37] LABS: Glucose - Point of Care 164 mg/dl (70-99)
[2023-08-05] MEDS: FERROUS SULFATE ORAL LIQUID 300 MG TUBE (08:35)
[2023-08-05] MEDS: ZOLOFT 100 MG TUBE (08:35)
[2023-08-05] MEDS: MIRALAX 17 GRAMS TUBE (08:35)
[2023-08-05] MEDS: LOW STRENGTH ASPIRIN 81 MG TUBE (08:35)
[2023-08-05] MEDS: SENOKOT-S 1 TABLET TUBE (08:35)
[2023-08-05] MEDS: ELIQUIS 2.5 MG TUBE (08:35)
[2023-08-05] MEDS: DIFLUCAN 100 MG TUBE (08:35)
[2023-08-05] MEDS: BUMEX 1 MG IV (08:36)
[2023-08-05] MEDS: DESENEX/MITRAZOL/ZEASORB 1 APPLIC TOPICAL (08:36)
[2023-08-05 08:38] LABS: Glucose - Point of Care 139 mg/dl (70-99)
--- NOTE | 2023-08-05 08:45 | PTCARENOTE ---
Assumed care of pt at 0715 following shift report. Pt remains intubated and on ventilator w/ settings as documented. Pox 93-97%. RR low 20's. No distress noted. OGT noted at 50cm at lip w/ Osmolite TF infusing at goal 55ml/hr w/ 25ml/hr auto water
flush. Placement verified w/ auscultation of air bolus. Miller patent and draining clear yellow urine. Glycemic protocol continues. Fentanyl gtt at 75mcg/hr, Leophed at 9 mcg/min, Precedex at 0.5 mcg/kg/hr via Rt UA PICC. Bilateral soft wrist
restraints remains in place. Pt opens eyes to name and tactile stimuli. Does not follow commands or attempt to communicate. Periods of restlessness/agitation noted. VEGA w/ good strength. Physical assessment completed and hygiene provided. Pt turned
and repositioned and comfort care provided. Pt's grandson here to visit. Updated on pt's present condition. Grandson stating 'I don't want my grandmother to suffer any more.' When asked further questions, grandson indicated that he would prefer pt
to be extubated and made comfort care. Emotional support provided. Dr Penaloza notified of grandson's wishes- plans to talk w/ grandson later this AM.
--- NOTE | 2023-08-05 09:20 | PTCARENOTE ---
Pt restless/agitated, HR in 80-90's, RR mid to upper 20's. Pt grimacing although not attempting to communicate in any way. Fentanyl bolus given as documented.
--- NOTE | 2023-08-05 10:15 | PTCARENOTE ---
Requested hospital tightener to pay a visit to pt and family at bedside to offer support.
[2023-08-05] MEDS: LEVOPHED 250 IV (10:34)
[2023-08-05 10:53] LABS: Glucose - Point of Care 81 mg/dl (70-99)
--- NOTE | 2023-08-05 11:20 | W.PN.INTV ---
Today's Communication / Plan
Recommendations
Extubate
Focus on comfort
Will add morphine and Ativan as needed
Will discontinue all unnecessary medications
Assessment
-
Assessment: 82-year-old female with a past medical history of CAD, DM type II, atrial fibrillation on Eliquis, aortic stenosis and HFpEF who was admitted to outside hospital due to weakness and shortness of breath. Patient also syncopized while at
home which was witnessed by her grandson. Patient was reportedly recently admitted and discharged from [facility] with acute on chronic HFpEF with pneumonia, treated with antibiotics but had been continued to experience shortness of breath since
discharge. The patient went to outside hospital and given Lasix in the ER which caused hypotension. She developed CIRO with anemia and coagulopathy and required vasopressors with Levophed. 1 unit PRBCs was given as well as antibiotics for possible
pneumonia. Patient then developed bradycardia and cardiac arrest requiring CPR --> ROSC obtained. Echo showed inferolateral wall motion abnormalities and transfer to [facility] was arranged for consideration of PPM. When the transfer
medical personnel arrived to outside hospital, patient appeared to be in worsening respiratory distress and was intubated prior to transfer. Once patient arrived here she was brought immediately to the [facility]. There was a densely calcified 90%
lesion in the ostium of the left circumflex as well as a 90% subtotal lesion in the ostium of the RCA. Also densely calcified 70-80% lesions in the crux of the RCA. Apparently the coronary anatomy is unchanged from prior cardiac catheterization
from February 2023. There was however severely elevated filling pressures with LVEDP 25 mmHg and PCWP of 27 mmHg. Also cardiac index was low at 1.88 while on Levophed consistent with cardiogenic shock. Medical management was decided given the
unchanged coronary anatomy compared to 02/2023, and dobutamine was started in the [facility] as well as Bumex drip. Temporary pacemaker also placed. Labs showed leukocytosis to 12.3, anemia to 9, initially was hypercapnic with pH of 7.21, pCO2 55,
hyponatremic to 132, CIRO with creatinine 2.1, elevated troponin of 21 with trace leukocyte esterase on urinalysis with moderate urine bacteria. Initial glucose via POCT was 223. Urine culture and respiratory culture were collected. CXR showed
severe pulmonary edema with a retrocardiac opacity. Unable to rule out concomitant pneumonia. Antibiotics were continued as well as dobutamine, Levophed, Bumex and patient was transferred to the CVICU for further care. Critical care service now
consulted for additional management/recommendations.
Chronic conditions [employer]: CAD, CHF, COPD, HTN, A-fib on Eliquis, hypercholesterolemia and NIDDM
Impression:
#In-Hospital Cardiac Arrest with bradycardia just prior to arrest now s/p TVP --> suspect she arrested due to severe hypoxia from both acute pulmonary edema (?TACO vs acute HFpEF) + /- pneumonia
#Acute respiratory failure with hypoxia and hypercapnia on mechanical ventilation
#Pneumonia - she certainly aspirated during her cardiac arrest; it is unclear if she had a PNA prior to her recent hospitalization at [facility]
#Shock - cardiogenic and suspected septic as well
#Abnormal UA with suspected UTI
#Leukocytosis with left shift suspicious for sepsis given bilateral opacities on CXR concerning for suspected pneumonia
#Acute kidney injury
#Anemia
#A-fib on Eliquis
#DM type II
Plan:
-
Remains critically ill: On mechanical ventilation.
Still requiring some degree of vasopressors. Possibly due to sedation.
Day 7 of mechanical ventilation.
-
Mechanical ventilation reviewed:
Pulmonary mechanics improved.
FiO2 only 40%.
No significant secretions.
ABG 08/01/2023: 7.46/35/84. Adequate oxygenation on ventilation.
Spontaneous breathing trial 08/03/2023: Shortly after sedation break patient has increased work of breathing. Maintaining oxygenation.
Will attempt spontaneous breathing trial again today.
-
Grandson who is the power of attorney at law, would like to extubate patient today. Would like to focus on comfort if patient has increased work of breathing or deterioration.
-
Anxiety/possibly delirium as the patient becomes restless and agitated with any sedation breaks.
Continue antipsychotics for now per
Wean off fentanyl.
Okay to continue Precedex for now.
-
Chest x-ray 08/02/2023: Persistent increased interstitial markings.
Chest x-ray 08/05/2023: Unchanged
-
Fever curve resolved/persistent leukocytosis improved.
Chest x-ray with multifocal infiltrates. Cannot rule out pneumonia.
-Legionella, Streptococcus antibodies negative.
Respiratory culture with Luisa albicans
Urine culture with Luisa albicans
Blood culture negative
MRSA screen pending
Procalcitonin significantly decreased.08/03/2023
Completed antibiotic 08/03/2023. Total of 6 days. Will continue to monitor closely
COVID-negative
Suspect respiratory Luisa is contaminant
Continue 7 days of enteral fluconazole. Has thrush/intertrigo and urine culture with Luisa
-
Pulmonary edema component:
Echocardiogram 07/31/2023: Left ventricle ejection fraction 30-35%. Inferolateral, anterolateral and inferior wall akinesis. Severely reduced left ventricular systolic function. Severely dilated left atrium. Moderate MR. Mild aortic stenosis.
Pacer wire has been discontinued
Prior history of severe coronary artery disease. Not a candidate for any intervention. Case discussed with cardiology.
Cardiogenic shock component: Pulmonary capillary wedge pressure greater than 24, cardiac index less than 2.2.
Clinically improved from the cardiac perspective.
Continue diuresis as able.
PO anticoagulation as the patient has atrial fibrillation with high CHADS2 score's.
Monitor renal function closely. BUN increasing. Treatment Specialist stable.
-
Shock: Septic/possibly cardiogenic component as well.
Wean off Levophed. Intermittently requiring. Doubt ongoing septic shock. May be related to sedation.
PICC line in place
-
Acute kidney injury: Possibly cardiorenal.
Stable creatinine from yesterday.
Miller in place, follow urinary output
Ischemic injury also possible with hypotension and sepsis.
Continue hemodynamic support
-
Anemia: No evidence for acute bleed
s/p transfusion.
- Maintain euglycemia with goal BG 140-180
Insulin drip will be started 08/01/2023.
Tube feeding -tolerating.
- prn nebulized bronchodilators
- stress ulcer ppx: PPI
- DVT ppx - HSQ
Dr. Penaloza updated family members, they would not want prolonged mechanical ventilation. Would like to extubate the patient and focus on comfort if patient has increased work of breathing.
Dr. Penaloza updated grandson at the bedside 07/31/2023, 08/01/2023 long discussion regarding critical illness. DNR status has been instituted
Critical care statement: A total of 31 . They would like patient extubated. Minutes of critical care time was provided for this patient today. This includes management of unstable vital signs, evaluation of the patient at bedside, reviewing the
patient's pertinent medical records including radiographs, microbiology, laboratory evaluations, and discussion with primary team, consultants, pharmacy, nutrition, physical therapy, case management, charge nurse, critical care nursing, and
respiratory therapy.

Data:
CXR 07-30-2023:
1. SEVERE ACUTE BILATERAL ALVEOLAR CARDIOGENIC PULMONARY EDEMA which appears unchanged.
2. Mild cardiomegaly.
3. Endotracheal tube, nasogastric tube, pulmonary arterial catheter, and right ventricular cardiac pacing wire in place.
Subjective Dataa
Subjective Data
Date of Service:
Date of Service: August 05, 2023
Chief Complaint: One Piece Expansion Maker Hand Follow Up (Acute hypoxemic respiratory failure requiring mechanical ventilation.)
Subjective:
Remains on mechanical ventilation.
With sedation breaks more alert.
Occasionally following commands.
Overnight without increased vasopressor requirement.
Unable to provide history.
Objective Data
Data Reviewed
Vital Signs / I&O / Oxygen:
Vital Signs
Temp Pulse Resp BP Pulse Ox
97.9 F 84 17 104/59 97
08/05/23 07:16 08/05/23 08:00 08/05/23 08:00 08/05/23 08:00 08/05/23 08:22
Intake and Output
08/04/23 08/05/23 08/06/23
06:59 06:59 06:59
Intake Total 3188.1 / 3330.0 1632.8 / 1771.0 671.7 / 671.7
Output Total 1365 / 1415 1395 / 1435 230 / 230
Balance 1823.1 / 1915.0 237.8 / 336.0 441.7 / 441.7
SaO2 [CPAP/PSV] 92
SaO2 [A/C] 97
SaO2 95
Physical Exam
General: Respiratory Distress (n)
HEENT: Normocephalic and Other (ET tube in place)
Cardiovascular: S1-S2
Respiratory: Clear and Non-Labored Respirations
GI: Soft and Non Distended
Neurology: Other (Moving 4 extremities with sedation breaks. Occasionally following commands) and Other (Sedated, on mechanical ventilation.)
Skin: Warm
Labs/Micro/Reports
Lab Data
08/05/23 03:51
08/05/23 05:47
Laboratory Results
08/04/23
11:49
pH 7.47 H
pCO2 32
pO2 66 L
HCO3 23.3
O2 Delivery Level
Microbiology
07/30/23 17:20 Blood/Venous Blood Culture - Final
No Growth - Final Report
08/02/23 11:25 Nasal Swab Influenza Types A & B (JOSEFA) - Final
Negative for Influenza A & B, NAAT
Negative results must be combined with clinical observations
and patient history.
Nucleic Acid Amplification test (NAAT)performed on the
[employer] platform.
[2023-08-05 11:42] LABS: Glucose - Point of Care 114 mg/dl (70-99)
--- NOTE | 2023-08-05 12:00 | PTCARENOTE ---
Dr Penaloza spoke w/ pt's grandson and decision made to extubate pt to comfort care. Insulin gtt d/c'ed per order and Fentanyl gtt remains off. Levophed and Precedex continues to infuse per Dr Penaloza. Resp. Therapy notified of order to extubate. Pt
extubated at 1145 to O2 at 2l/min w/ Pox 86%- increased to 6l/min w/ POx 90%. Tubefeedings d/c'ed and OGT removed at time ETT removed. Comfort care provided to pt. Pt's familiy returned to bedside by 1150. Pt's RR increased to 40's w/ pt moaning and
restless. Morphine 2mg IV given per order. Emotional support provided to pt and family.
[2023-08-05] MEDS: MORPHINE SULFATE 2 MG IV ×6 (12:01→18:02)
--- NOTE | 2023-08-05 12:05 | RESPNOTE ---
patient extubated at 1145 for comfort care per MD order. patient appears comfortable. patient placed on 2L.
--- NOTE | 2023-08-05 12:19 | W.PN.UPDATE ---
Addendum entered and electronically signed by Thad Riley MD 08/05/23 13:54:
Agree with below; comfort care.
Original Note:
Update Note
Progress Note Update
Plans are for extubation and focus on comfort per nursing and chart. No further cardiac recommendations at this time.
[2023-08-05] MEDS: ATIVAN 2 MG IV ×2 (12:36→16:01)
--- NOTE | 2023-08-05 14:28 | W.PN.HOSP.TC ---
Today's Communication/Plan
-
extubate
comfort measures
Assessment / Plan
Assessment / Plan
08/04
Patient grandson at bedside and after discussion requesting patient to be extubated.
As with complex medical history patient POA does not want to try BiPAP and prioritize on comfort care
I have discussed this with mule packer and plan for patient to be extubated later today.
All non comfort care medication to be discontinued.
Patient was requiring vasopressors in ICU at time of extubation and will expect hypotension/shock to set in quickly
Will continue to provide supportive/comfort medication as needed.

TTE Left ventricle is mildly dilated.
Severely reduced left ventricular systolic function. Inferolateral, anterolateral and inferior wall akinesis. Left ventricular ejection fraction is 30-35%.
Severely dilated left atrium. Moderate mitral regurgitation. Mild aortic stenosis, mean gradient 12 mmHg. No prior study available for comparison.
CXR 07/30
1. Bilateral alveolar pulmonary edema with slight improvement compared to the chest radiograph from 07/30/2023.
2. Support tubes and lines, as detailed above.
1. In hospital Cardiorespiratory arrest with bradycardia
Vent dependent resp failure
Pneumonia
-Patient with sinus bradycardia cardiac arrest
-Patient was requiring temporary pacing for bradycardia.
-Cardio following and help appreciated.
-Patient was intubated during cardiac arrest. Vent weaning per mule packer.
-Legionella/streptococcal negative. COVID neg.
-Covered with cefepime/Diflucan. Resp culture growing Luisa only.
-On going vent weaning efforts.
2. Cardiogenic Shock
-Requiring vasopressors post cardiac arrest likely due to suppressed cardiac function
-Potential differential of ongoing sepsis also playing a role
-Not a candidate of MCS with peripheral vascular disease
-Being treated for underlying issues
-Continue wean off pressors as needed
3. Acute on chronic diastolic congestive heart failure:
-Monitor electrolytes and renal function
-Monitor ins and outs
-Cardiology on board
-Bumex drip d/roscoe. on IV daily bumex.
4. Elevated troponin with Type II OK
-Left heart catheterization showing known severe CAD. Not amenable to bypass.
-Any PCI option remains high risk procedure and cardiac will revisit if not improved medically
-Troponin of 21, trending down.
5. Acute kidney injury
-Presumed component of cardiorenal syndrome
-UA showing minimal RBC 7-10, few bacteria. No proteinuria.
-renal function trending down, max 2.1 at admit. cr 1.5 today.
-eventual renal bladder US
6. Paroxysmal atrial fibrillation:
-Anticoagulation on hold
-No rate control especially in the setting of bradycardia
7.Presumed Iron def Anemia
-Microcytic anemia with ferritin of 108 (acute phase reactant) with Iron sat 8%
-got 1 u prbc yesterday, hbg 8.4 , continue monitor
-patient has been started back on eliquis
8. Diabetes mellitus type 2:
-Insulin sliding scale
-Monitor blood sugar and adjust medications accordingly
9. Hypokalemia
-replace as needed
10. Essential Hypertension:
-Hold antihypertensive for now due to shock
11. Hyperlipidemia:
- Hold statins for now
12. Hyponatremia -resolved
DVT prophylaxis: SCDs
CODE STATUS: Full code
Total critical care time 37 mins . Total critical care time documented does not include time spent on separately billed procedures or the services of residents, students, nurses or physician assistants. I personally saw and examined the patient. I
have reviewed all diagnostic interpretations and treatment plans as written. I was present for the collazo portions of any procedures performed and the inclusive time noted in any critical care statement. Critical care time includes patient management
by me, time spent at the patients bedside, time to review lab and imaging results, discussing patient care, documentation in the medical record, and time spent with the family or caregiver.

Anticipated Discharge: Within 24 hours
Subjective/Interval History
-
Date of Service: August 05, 2023
remains intubated
on vasopressors
afebrile in night
no acute issues reported
Objective Data
-
Labs:
Laboratory Results
08/05/23 08/05/23
03:51 05:47
WBC 11.5 H
Hgb 7.7 L
Hct 22.9 L
Plt Count 243
Sodium 126 L D 130 L
Potassium 3.8 4.1
Chloride 97 L 99
Carbon Dioxide 23 21 L
BUN 58 H 61 H
Creatinine 1.4 H 1.4 H
Glucose 234 H 151 H
Calcium 8.0 L 8.3 L
Vital Signs:
Vital Signs
Temp Pulse Resp BP Pulse Ox
98.3 F 84 17 104/59 97
08/05/23 11:28 08/05/23 08:00 08/05/23 08:00 08/05/23 08:00 08/05/23 08:22
I&O
08/04/23 08/05/23 08/06/23
06:59 06:59 06:59
Intake Total 3188.1 / 3330.0 1632.8 / 1771.0 671.7 / 671.7
Output Total 1365 / 1415 1395 / 1435 230 / 230
Balance 1823.1 / 1915.0 237.8 / 336.0 441.7 / 441.7
Review of Systems
-
Unable to obtain full review of systems at this time due to: Acuity and Patient Intubation
Physical Exam
-
General: No Apparent Distress
HEENT: Other (Intubated on ventilator)
Respiratory: Clear to Auscultation
Cardiac: Regular Rhythm and S1/S2; Negative Murmur or Rub
GI: Soft, Nontender and Nondistended
Genito-urinary: Miller (clear urine)
Musculoskeletal: No Edema
Neuro: Sedated; Negative Awake or Alert
Psych: Calm
--- NOTE | 2023-08-05 15:30 | CHAP ---
Responded to nurse's request for a visit to Quita and family. Called the emergency hot plate plywood press feeder. Meanwhile, offered emotional support and prayed with the family at bedside, giving thanks for Quita's life and love. Fr. Wiley came and provided
Sacrament of the Sick.
--- NOTE | 2023-08-05 15:33 | PTCARENOTE ---
patient transfer to room 2124 comfort care. Report given prior to transfer. At time of transfer patient open eyes of voice, drowsy. SR 77; Abdomen soft round. On 6L of oxygen via nasal canula. large BM soft formed. Miller draining pale yellow urine
output 300 cc. RT PICC line flushed, dressing intact. perpheral line left FA flushed capped. Family at the bedside aware of transfer. pt transfer via hospital bed
--- NOTE | 2023-08-05 18:20 | PTCARENOTE ---
During shift change rounds patient noted unresponsive, vital signs were assessed with no activity. Hospitalist contacted. Pt determined .
--- NOTE | 2023-08-05 20:10 | W.PN.DEATH ---
Pronouncement of
-
Called to see patient to pronounce.
No spontaneous heart tones or respirations noted.
Patient not responsive to verbal stimuli.
Patient is pronounced .
Time of : 19:52
Date of : 08/05/23
Cause of : cardiorespiratory failure due to bradycardia
Family Notified: Yes (Grandson - Terry Dayna)
--- NOTE | 2023-08-05 21:55 | PTCARENOTE ---
08/05/2023 - At approximately 19:35 during shift change I observed the PT without any visable respiration. VS were taken and no reading where noted. I contacted the on duty hospitalist who assessed the PT and determined the PT was . The family
was contacted and came in to spend time with the .
--- NOTE | 2023-08-06 08:07 | W.DCSUMMARY ---
Discharge Summary
Discharge Data
Date of Admission: 07/29/23
Date of Discharge: 08/05/23
-
Pending Results: No
Hospital Course
This is a summary on Ms. Quita Lopez who on 08/05/2023 @ 1952
List of hospital diagnosis:
In hospital cardiac arrest with preceding bradycardia
Ventilator dependent respiratory failure
Cardiogenic shock
Acute on chronic diastolic congestive heart failure
Pneumonia
Severe coronary artery disease
Acute kidney injury
Elevated troponin with type II myocardial infarction
Paroxysmal atrial fibrillation
Deficiency anemia
Type 2 diabetes mellitus
Electrolytes imbalance
Essential hypertension
Hyperlipidemia
Mild aortic stenosis
Moderate mitral regurgitation
Hospital course:
Patient is 82-year-old female with above-mentioned past medical history was initially admitted at [facility] for generalized weakness and shortness of breath. Patient also had reported syncope before presenting to [facility].
Patient hydrated send admission at [facility] for heart failure and pneumonia and was discharged on course of antibiotic although continued to feel short of breath post discharge and went to [facility] again. At [place] patient was provided dose
of Lasix in ER causing hypotension. Patient diuretics were held and was started on norepinephrine and given fluid boluses. Patient also was started on antibiotic for suspected pneumonia. At some point patient became bradycardic and suffered
cardiac arrest requiring resuscitative measures. Patient was intubated in the process. An echocardiogram showing new inferior wall motion abnormality there was concern of new ACS. [facility] physicians contacted [facility]
for transfer to [facility] for heart cath/pacemaker consideration. Patient was transferred to [facility] for emergent heart catheterization showing diffuse CAD involving RCA/left main mid LAD and ostium of left circumflex. Patient was
noted to having severely dilated filling pressure and depressed cardiac function. Coronary anatomy was felt to be same from previous heart catheterization report. Patient was diagnosed to be in cardiogenic shock and was started on vasopressors.
Patient deemed not a candidate for mechanical circulatory support therapy. Patient transferred to CVICU and was maintained on transcutaneous pacing and pressor support at this point. Over next 48 hours patient was able to be taken off of
transcutaneous pacing. Vasopressor requirement remained stable. For cardiogenic shock patient was also started on Bumex drip. There was concern of possible associated pneumonia and patient was maintained on broad-spectrum antibiotic. Septic
workup did not show any clear pathological organism per patient pneumonia. Patient renal function improved with IV diuretic therapy although remained elevated from baseline. Patient required blood transfusion for possible dilutional anemia, there
was no overt bleed noted. Patient was off of blood thinner for initial hospital stay and was resumed back during later course of hospitalization. Despite maximal medical therapy patient remains difficult to extubate and continue require
vasopressors. Patient was deemed to be high risk for reintubation and this was discussed with family members, patient family decided not to pursue any further aggressive measures. Patient was terminally extubated on 08/05/2023 and was transitioned
to comfort care. Patient on comfort care measures same day at 1952.
Discharge Plan
-
Patient Disposition:
Date/Time
Date/Time: 08/05/23 19:52
Discharge Date and Time
Discharge Date/Time: 08/06/23 02:32
Print Language: ALBANIAN
== END 2023-08-05 19:52 | disposition expired | DRG 208 ==
LOC: 2 NORTH 17:58
PROVIDERS: Internal Medicine Critical Care Medicine; Nurse Practitioner Family; Nurse Practitioner Primary Care; ADMITTING PHYSICIAN Hospitalist; OTHER PHYSICIAN Internal Medicine Cardiovascular Disease
PROC: B2161ZZ Fluoroscopy of Right and Left Heart using Low Osmolar Contrast (ICD-10-PCS; 2023-07-29)
PROC: B2111ZZ Fluoroscopy of Multiple Coronary Arteries using Low Osmolar Contrast (ICD-10-PCS; 2023-07-29)
PROC: 4A023N8 Measurement of Cardiac Sampling and Pressure, Bilateral, Percutaneous Approach (ICD-10-PCS; 2023-07-29)
PROC: 5A1223Z Performance of Cardiac Pacing, Continuous (ICD-10-PCS; 2023-07-29)
PROC: 5A1945Z Respiratory Ventilation, 24-96 Consecutive Hours (ICD-10-PCS; 2023-07-30)
PROC: 30233N1 Transfusion of Nonautologous Red Blood Cells into Peripheral Vein, Percutaneous Approach (ICD-10-PCS; 2023-08-03)
DX: J96.01 Acute respiratory failure with hypoxia (principal); I50.33 Acute on chronic diastolic (congestive) heart failure; J18.9 Pneumonia, unspecified organism; I21.A1 Myocardial infarction type 2; N17.9 Acute kidney failure, unspecified; J44.0 Chronic obstructive pulmonary disease with (acute) lower respiratory infection; E87.1 Hypo-osmolality and hyponatremia; Z99.11 Dependence on respirator [ventilator] status; J96.91 Respiratory failure, unspecified with hypoxia; I48.0 Paroxysmal atrial fibrillation; Z79.84 Long term (current) use of oral hypoglycemic drugs; E11.9 Type 2 diabetes mellitus without complications; E78.00 Pure hypercholesterolemia, unspecified; D53.9 Nutritional anemia, unspecified; I46.2 Cardiac arrest due to underlying cardiac condition; Z79.01 Long term (current) use of anticoagulants; R57.0 Cardiogenic shock; E87.6 Hypokalemia; I25.10 Atherosclerotic heart disease of native coronary artery without angina pectoris; Z51.5 Encounter for palliative care; I11.0 Hypertensive heart disease with heart failure
CPT/HCPCS: 36600; 71045; 76857; 80048; 80053; 81003; 81015; 82248; 82330; 82533; 82607; 82728; 82746; 82805; 82962; 83036; 83540; 83550; 83605; 83735; 83880; 84100; 84132; 84145; 84425; 84478; 84484; 85014; 85018; 85025; 85027; 85045; 85610; 85730; 86850; 86900; 86901; 86920; 87040; 87070; 87086; 87205; 87449; 87502; 87811; 87899; 93005; 93307; 93460; 94002; 94003; C1894; P9016; Q9957; Q9967